=== PATIENT | male | born 1950 | race Caucasian/White ===

== ENCOUNTER 2020-04-11 13:09 | Outpatient (REF) | payer MEDICARE, SELFPAY ==
[2020-04-11 14:38] LABS: Cholesterol 155 mg/dL; HDL Cholesterol 62 mg/dL; LDL Cholesterol Calculated 79 mg/dl; Triglycerides 70 mg/dL
== END 2020-04-11 13:10 | disposition home or self-care (01) ==
LOC: HO.LAB 13:09
PROVIDERS: PCP Internal Medicine; Visit Provider Internal Medicine
DX: Z00.00 Encounter for general adult medical examination without abnormal findings (principal); E78.5 Hyperlipidemia, unspecified
CPT/HCPCS: 36415; 80061

== ENCOUNTER 2020-10-05 11:26 | Outpatient (REF) | payer MEDICARE, SELFPAY ==
[2020-10-05 12:43] LABS: Cholesterol 156 mg/dL; HDL Cholesterol 58 mg/dL; LDL Cholesterol Calculated 82 mg/dl; Triglycerides 83 mg/dL
== END 2020-10-05 11:27 | disposition home or self-care (01) ==
LOC: HO.LAB 11:26
PROVIDERS: PCP Internal Medicine; Visit Provider Internal Medicine
DX: E11.9 Type 2 diabetes mellitus without complications (principal)
CPT/HCPCS: 36415; 80061

== ENCOUNTER 2021-02-07 13:36 | Outpatient (REF) | payer MEDICARE, SELFPAY | END 2021-02-07 13:37 | disposition home or self-care (01) | LOC: HO.LAB 13:36 | PROVIDERS: PCP Internal Medicine; Visit Provider Internal Medicine | DX: Z20.822 Contact with and (suspected) exposure to COVID-19 (principal) | CPT/HCPCS: C9803; U0003; U0005 ==

== ENCOUNTER 2021-03-20 12:54 | Outpatient (REF) | payer MEDICARE, SELFPAY | END 2021-03-20 12:55 | disposition home or self-care (01) | LOC: HO.LAB 12:54 | PROVIDERS: Visit Provider Internal Medicine | DX: Z20.822 Contact with and (suspected) exposure to COVID-19 (principal) | CPT/HCPCS: C9803; U0003; U0005 ==

== ENCOUNTER 2021-04-08 11:39 | Outpatient (REF) | payer OTHER, SELFPAY ==
[2021-04-08 11:50] LABS: MANUAL DIFF FLAG NO
[2021-04-08 12:40] LABS: Basophils Percent Auto 0.8 % (0-2); Eosinophils Absolute Auto 0.1 X10*3/uL (0.0-0.4); Eosinophils Percent Auto 1.9 % (0-4); Hematocrit 45.3 % (42.0-52.0); Hemoglobin 15.7 g/dl (14.0-18.0); Imm Gran Abs Auto 0.02 X10*3/uL (0.00-0.03); Imm Gran Pct Auto 0.4 % (0.0-0.4); Lymphocytes Absolute Auto 1.4 X10*3/uL (1.2-4.9); Lymphocytes Percent Auto 30.1 % (20-40); Mean Corpuscular HGB Conc 34.7 g/dl (31.0-36.0); Mean Corpuscular Hemoglobin 34.1 pg (27.0-33.0); Mean Corpuscular Volume 98.5 fL (80.0-98.0); Mean Platelet Volume 9.2 fL (9.4-12.4); Monocytes Absolute Auto 0.5 X10*3/uL (0.1-1.2); Monocytes Percent Auto 10.7 % (2-11); Neutrophils Absolute Auto 2.7 x10*3/uL (2.0-8.3); Neutrophils Percent Auto 56.1 % (45-73); Platelet Count 234 X10*3/uL (160-400); Red Cell Distribution Width 12.8 % (11.0-16.0); White Blood Count 4.8 X10*3/uL (4.8-10.8)
[2021-04-08 12:57] LABS: Anion Gap 15 (12-20); Blood Urea Nitrogen 13 mg/dL (9-16); Calcium 9.4 mg/dL (8.4-10.2); Carbon Dioxide 26 mmol/L (22-29); Chloride 102 mmol/L (96-108); Estimated Glomerular Filt Rate 54; Glucose Random 93 mg/dL (60-115); Potassium 4.5 mmol/L (3.3-5.1); Sodium 138 mmol/L (135-145)
[2021-04-08 13:18] LABS: Prostate Specific Antigen Scr 3.07 ng/mL (<0.05-4.0)
== END 2021-04-08 11:40 | disposition home or self-care (01) ==
LOC: HO.LAB 11:39
PROVIDERS: PCP Internal Medicine; Visit Provider Internal Medicine
DX: Z00.00 Encounter for general adult medical examination without abnormal findings (principal); R35.1 Nocturia; R51.9 Headache, unspecified; Z12.5 Encounter for screening for malignant neoplasm of prostate
CPT/HCPCS: 36415; 80048; 84153; 85025

== ENCOUNTER 2021-10-04 11:47 | Outpatient (REF) | payer OTHER, SELFPAY ==
[2021-10-04 14:00] LABS: Cholesterol 147 mg/dL; HDL Cholesterol 56 mg/dL; LDL Cholesterol Calculated 79 mg/dl; Triglycerides 60 mg/dL
== END 2021-10-04 11:48 | disposition home or self-care (01) ==
LOC: HO.LAB 11:47
PROVIDERS: PCP Internal Medicine; Visit Provider Internal Medicine
DX: Z00.00 Encounter for general adult medical examination without abnormal findings (principal)
CPT/HCPCS: 36415; 80061

== ENCOUNTER 2022-04-15 11:36 | Outpatient (REF) | payer OTHER, SELFPAY ==
[2022-04-15 11:47] LABS: MANUAL DIFF FLAG NO
[2022-04-15 12:27] LABS: Basophils Percent Auto 0.7 % (0-2); Eosinophils Absolute Auto 0.1 X10*3/uL (0.0-0.4); Eosinophils Percent Auto 1.3 % (0-4); Hematocrit 44.4 % (42.0-52.0); Hemoglobin 15.5 g/dl (14.0-18.0); Imm Gran Abs Auto 0.01 X10*3/uL (0.00-0.03); Imm Gran Pct Auto 0.2 % (0.0-0.4); Lymphocytes Absolute Auto 1.5 X10*3/uL (1.2-4.9); Lymphocytes Percent Auto 25.5 % (20-40); Mean Corpuscular HGB Conc 34.9 g/dl (31.0-36.0); Mean Corpuscular Hemoglobin 34.6 pg (27.0-33.0); Mean Corpuscular Volume 99.1 fL (80.0-98.0); Mean Platelet Volume 9.4 fL (9.4-12.4); Monocytes Absolute Auto 0.6 X10*3/uL (0.1-1.2); Monocytes Percent Auto 10.7 % (2-11); Neutrophils Absolute Auto 3.7 x10*3/uL (2.0-8.3); Neutrophils Percent Auto 61.6 % (45-73); Platelet Count 225 X10*3/uL (160-400); Red Blood Count 4.48 X10*6/uL (4.60-5.80); Red Cell Distribution Width 12.6 % (11.0-16.0)
[2022-04-15 14:27] LABS: Alanine Aminotransferase 15 U/L (0-40); Albumin Level 4.5 g/dL (3.5-5.0); Anion Gap 12 (12-20); Aspartate Amino Transferase 20 U/L (5-37); Blood Urea Nitrogen 15 mg/dL (9-16); Calcium 9.2 mg/dL (8.4-10.2); Carbon Dioxide 25 mmol/L (22-29); Chloride 105 mmol/L (96-108); Cholesterol 159 mg/dL; Estimated Glomerular Filt Rate > 60; Glucose Fasting 100 mg/dL (60-99); HDL Cholesterol 56 mg/dL; LDL Cholesterol Calculated 85 mg/dl; Sodium 138 mmol/L (135-145); Total Protein 6.8 g/dL (6.5-8.0); Triglycerides 93 mg/dL
[2022-04-15 14:28] LABS: Alkaline Phosphatase 67 U/L (39-117)
[2022-04-15 14:29] LABS: Prostate Specific Antigen Scr 4.36 ng/mL (<0.05-4.0)
== END 2022-04-15 11:37 | disposition home or self-care (01) ==
LOC: HO.LAB 11:36
PROVIDERS: PCP Internal Medicine; Visit Provider Internal Medicine
DX: Z00.00 Encounter for general adult medical examination without abnormal findings (principal); Z12.5 Encounter for screening for malignant neoplasm of prostate; Z13.0 Encounter for screening for diseases of the blood and blood-forming organs and certain disorders involving the immune mechanism; I10 Essential (primary) hypertension; E78.5 Hyperlipidemia, unspecified
CPT/HCPCS: 36415; 80053; 80061; 84153; 85025

== ENCOUNTER 2022-10-13 12:42 | Outpatient (REF) | payer OTHER, SELFPAY ==
[2022-10-13 14:35] LABS: Cholesterol 131 mg/dL; HDL Cholesterol 56 mg/dL; LDL Cholesterol Calculated 65 mg/dl; Triglycerides 54 mg/dL
[2022-10-13 15:07] LABS: Prostate Specific Antigen Scr 3.93 ng/mL (<0.05-4.0)
== END 2022-10-13 12:43 | disposition home or self-care (01) ==
LOC: HO.LAB 12:42
PROVIDERS: PCP Internal Medicine; Visit Provider Internal Medicine
DX: Z00.00 Encounter for general adult medical examination without abnormal findings (principal); Z12.5 Encounter for screening for malignant neoplasm of prostate; E78.5 Hyperlipidemia, unspecified
CPT/HCPCS: 36415; 80061; 84153

== ENCOUNTER 2022-10-15 11:30 | Outpatient (AMB) | payer OTHER, SELFPAY ==
--- NOTE | 2022-10-15 11:32 | A.OFFPC_ITS ---
Vital Signs 10/15/22 11:33 Height 5 ft 6.5 in Weight 180 lb 2 oz BMI 28.6 BP 120/60 Blood Pressure Location Lt brachial Position Sitting Pulse 69 Pulse Source Pulse Oximeter Pulse Oximetry (%) 95 Oxygen Delivery Method Room Air Intake Visit Reasons: 6mth f/u Intake Note: Patient is here to follow up on Hyperlipidemia. 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 Residential Sales Associate: Not Required per policy Accompanied by: Self / Same As Patient Allergies penicillin V Allergy (Unknown, Verified 10/15/22 11:32) Rash Medication List - Last Reconciled 10/15/22 by Kyree Johnson MD epinephrine (EpiPen 2-Nate) 0.3 mg (0.3 mL) IM Q10M PRN simvastatin 20 mg PO DAILY Tobacco use date assessed: 10/15/22 Fall risk assessment: No Falls in past year Last assessed Fall Risk: 10/15/22 Dental Screening Dental Screen Date: 10/15/22 Did you have a dental visit in the last 12 months?: Yes Did you have a dental problem in the last 6 months where you did not have access to dental care?: No Was dental information given to patient?: Patient has dentist HPI 6mth f/u HPI Details hyperlipidemia on rx; doing well PFSH Medical History (Updated 04/10/21 @ 12:07 by Kyree Johnson MD) Hyperlipidemia Surgical History H/O thyroglossal duct cyst History of foot surgery Family History Father No problems noted. Mother Esophageal cancer Brother Past heart attack Social History Housing: House Alcohol intake: current Alcohol intake frequency: a few times a week Patient Tobacco Use Status: Never used Tobacco e-Cigarette/Vaping Use: Never Used Second Hand Smoke Exposure: No service: No Current occupational status: retired Cognitive needs: No Hearing needs: Yes (hearing aide) Vision needs: Yes (glasses) Questionnaire PHQ-9 Over the last 2 weeks, how often have you been bothered by any of the following problems? Depression Screening Interpretation: Negative Source: Developed by Drs. Rj Blair, Lavon Arguelles and colleagues, with an educational joey from [employer]. Thrive Questionnaire Date Thrive assessed: 04/16/22 Currently or been in a relationship where the following occur: no concerns reported SALIMA-7 AMB Questionnaire SALIMA-7 Date SALIMA - 7 assessed: 04/16/22 Source: Developed by Drs. Rj Blair, Lavon Arguelles and colleagues, with an educational joey from [employer]. Review of Systems Const Denies chills, Denies headache(s) and Denies weight loss ENT Denies headache(s) Card Denies chest pain, Denies syncope, Denies irregular heart rhythm and Denies dyspnea Resp Denies chest congestion, Denies cough and Denies dyspnea GI Denies abdominal pain, Denies change in stool character, Denies nausea and Denies vomiting Musc Denies deformity and Denies joint swelling Neuro Denies syncope and Denies headache(s) Physical exam (Primary Care) Vital Signs: Last Vital Signs Pulse 69 10/15/22 11:33 BP 120/60 10/15/22 11:33 Pulse Ox 95 10/15/22 11:33 Oxygen Delivery Method Room Air 10/15/22 11:33 BMI result Body Mass Index 28.6 Tobacco/Smoking Status: Tobacco use Status Tobacco use date assessed 10/15/22 10/15/22 11:37 Patient Tobacco Use Status Never used Tobacco 10/15/22 11:37 e-Cigarette/Vaping Use Never Used 10/15/22 11:37 Depression Screening Interpretation: Negative Thrive Assessment: Date of Thrive Assessment Date Thrive assessed 04/16/22 10/15/22 11:37 Currently or been in a relationship where the following occur: no concerns reported Const General: comfortable, no acute distress and alert Neck Neck: Yes no lymphadenopathy Thyroid: Thyroid normal Resp Effort & Inspection: normal respiratory effort Auscultation: clear to auscultation bilaterally Percussion: percussion normal Cardio Jugular venous distension: no JVD Palpation: normal PMI Rate: regular rate Rhythm: regular rhythm Heart sounds: S1 normal heart sound present and S2 normal heart sound present GI Inspection: Yes normal to inspection Palpation (GI): No hepatosplenomegaly present Skin General skin exam: no rashes or lesions noted Extrem General: Yes no clubbing, cyanosis or edema Assessment and Plan Assessment & Plan (1) Hyperlipidemia: Code(s): E78.5 - Hyperlipidemia, unspecified Plan: stable; same rx Orders: Orders Comprehensive [place]. Panel Fast Today N28.9 - Disorder of kidney and ureter, unspecified Lipid Panel Today E78.5 - Hyperlipidemia, unspecified Complete Blood Count Auto Diff Today D64.9 - Anemia, unspecified Prostate Specific Antigen Scr Today Z00.00 - Encounter for general adult medical examination without abnormal findings Referrals Podiatry Referral L60.9 - Nail disorder, unspecified Coding Level of Care Code Est Pt Level 3 (58703) Diagnoses Hyperlipidemia E78.5
[2022-10-15 11:33] VITALS: BP 120/60; PULSE 69; O2SAT 95; BMI 28.6
== END 2022-10-15 11:44 | disposition home or self-care (01) ==
PROVIDERS: PCP Internal Medicine; Visit Provider Internal Medicine
DX: E78.5 Hyperlipidemia, unspecified (principal)
CPT/HCPCS: 99213

== ENCOUNTER 2022-11-20 13:48 | Outpatient (AMB) | payer OTHER, SELFPAY ==
--- NOTE | 2022-11-20 13:49 | MHC.PC.OV ---
Intake Visit Reasons: Sneezing, coughing/sore throat/troubled breathing Allergies penicillin V Allergy (Unknown, Verified 11/20/22 13:49) Rash Medication List - Last Reconciled 11/20/22 by Kyree Johnson MD epinephrine (EpiPen 2-Nate) 0.3 mg (0.3 mL) IM Q10M PRN simvastatin 20 mg PO DAILY Tobacco use date assessed: 10/15/22 Fall risk assessment: No Falls in past year Last assessed Fall Risk: 11/20/22 Dental Screening Dental Screen Date: 11/20/22 Did you have a dental visit in the last 12 months?: No Did you have a dental problem in the last 6 months where you did not have access to dental care?: No Was dental information given to patient?: Patient has dentist HPI Sneezing, coughing/sore throat/troubled breathing HPI Details cough chills dyspnea for 2 days PFSH Medical History (Updated 11/20/22 @ 14:07 by Kyree Johnson MD) Hyperlipidemia Surgical History H/O thyroglossal duct cyst History of foot surgery Family History Father No problems noted. Mother Esophageal cancer Brother Past heart attack Social History Housing: House Alcohol intake: current Alcohol intake frequency: a few times a week Patient Tobacco Use Status: Never used Tobacco e-Cigarette/Vaping Use: Never Used Second Hand Smoke Exposure: No service: No Current occupational status: retired Cognitive needs: No Hearing needs: Yes (hearing aide) Vision needs: Yes (glasses) Questionnaire PHQ-9 Over the last 2 weeks, how often have you been bothered by any of the following problems? 1. Little interest or pleasure in doing things: not at all 2. Feeling down, depressed, or hopeless: not at all 3. Trouble falling or staying asleep, or sleeping too much: not at all 4. Feeling tired or having little energy: not at all 5. Poor appetite or overeating: not at all 6. Feeling bad about yourself - or that you are a failure or have let yourself or your family down: not at all 7. Trouble concentrating on things, such as reading the newspaper or watching television: not at all 8. Moving or speaking so slowly that other people could have noticed. Or the opposite - being so fidgety or restless that you have been moving around a lot more than usual: not at all 9. Thoughts that you would be better off or of hurting yourself in some way: not at all Total score: 0 Depression Screening Interpretation: Negative Source: Developed by Drs. Rj Blair, Lavon Arguelles and colleagues, with an educational joey from [employer]. Thrive Questionnaire Date Thrive assessed: 04/16/22 AUDIT C Alcohol Use Questionnaire (AUDIT-C) 1. How often do you have a drink containing alcohol?: 4 or more times a week 2. How many drinks containing alcohol do you have on a typical day when you are drinking?: 3 or 4 3. How often do you have six or more drinks on one occasion?: Never Total Score: 5 Score Reviewed/Action Taken: Yes SALIMA-7 AMB Questionnaire SALIMA-7 Date SALIMA - 7 assessed: 04/16/22 Source: Developed by Drs. Rj Blair, Monica Nicolas, Lavon Contreras and colleagues, with an educational joey from [employer]. Review of Systems Const Denies headache(s) and Denies weight loss ENT Denies headache(s) Card Denies chest pain, Denies syncope and Denies irregular heart rhythm Resp Denies chest congestion GI Denies abdominal pain, Denies change in stool character, Denies nausea and Denies vomiting Musc Denies deformity and Denies joint swelling Neuro Denies syncope and Denies headache(s) Physical exam (Primary Care) Tobacco/Smoking Status: Tobacco use Status Tobacco use date assessed 10/15/22 11/20/22 13:50 Patient Tobacco Use Status Never used Tobacco 11/20/22 13:50 e-Cigarette/Vaping Use Never Used 11/20/22 13:50 PHQ-9: PHQ-9 Score PHQ-9: Total score 0 11/20/22 13:50 Depression Screening Interpretation: Negative Thrive Assessment: Date of Thrive Assessment Date Thrive assessed 04/16/22 11/20/22 13:50 Telehealth Telehealth Location of provider rendering services: practice address Location of patient: address on file Patient Identification confirmed using: Name, : Yes Telehealth method: voice only Patient verbally consented to treatment: Yes Patient verbally consented to billing insurance company: Yes Patient informed of any privacy concerns related to visit: Yes Minutes spent on Phone/Video with Pt.: 15 (telephone) Assessment and Plan Assessment & Plan (1) Cough: Code(s): R05.9 - Cough, unspecified Plan: covid test Orders: Orders BinaxNOW Covid-19 Ag Today R68.83 - Chills (without fever) Medications: New azithromycin take 500 mg today (day 1), then 250 mg for 4 days (days 2-5) PO 6 tabs 0RF Coding Level of Care Code Est Pt Level 3 (69526) Diagnoses Cough R05.9
== END 2022-11-20 15:51 | disposition home or self-care (01) ==
LOC: HO.HMGH 13:48
PROVIDERS: PCP Internal Medicine; Visit Provider Internal Medicine
DX: R05.9 Cough, unspecified (principal)
CPT/HCPCS: 99213

== ENCOUNTER 2022-11-20 14:29 | Outpatient (REF) | payer OTHER, SELFPAY ==
[2022-11-20 15:09] LABS: COVID-19 Test Positive (Negative); IDNOW Serial# BCCEAD1C
== END 2022-11-20 14:30 | disposition home or self-care (01) ==
LOC: HO.LAB 14:29
PROVIDERS: PCP Internal Medicine; Visit Provider Internal Medicine
DX: R05.9 Cough, unspecified (principal); R06.7 Sneezing; J02.9 Acute pharyngitis, unspecified; Z20.822 Contact with and (suspected) exposure to COVID-19
CPT/HCPCS: 87635

== ENCOUNTER 2022-11-27 14:08 | Outpatient (REF) | payer OTHER, SELFPAY ==
[2022-11-27 15:30] LABS: COVID-19 Test Negative (Negative); IDNOW Serial# 08D9AD1C
== END 2022-11-27 14:09 | disposition home or self-care (01) ==
LOC: HO.LAB 14:08
PROVIDERS: PCP Internal Medicine; Visit Provider Internal Medicine
DX: Z20.822 Contact with and (suspected) exposure to COVID-19 (principal); R05.9 Cough, unspecified
CPT/HCPCS: 87635; C9803

== ENCOUNTER 2023-04-08 11:21 | Outpatient (AMB) | payer OTHER, SELFPAY ==
[2023-04-08 11:23] VITALS: BP 164/98; PULSE 70; O2SAT 99; BMI 28.6
--- NOTE | 2023-04-08 11:23 | A.OFFPC_ITS ---
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 Metal Molder: Not Required per policy Accompanied by: Self / Same As Patient Allergies penicillin V Allergy (Unknown, Verified 04/08/23 11:23) Rash Medication List - Last Reconciled 04/08/23 by Kyree Johnson MD epinephrine (EpiPen 2-Nate) 0.3 mg (0.3 mL) IM Q10M PRN simvastatin 20 mg PO DAILY Tobacco use date assessed: 04/08/23 Fall risk assessment: No Falls in past year Last assessed Fall Risk: 04/08/23 Dental Screening Dental Screen Date: 04/08/23 Did you have a dental visit in the last 12 months?: No Did you have a dental problem in the last 6 months where you did not have access to dental care?: No Was dental information given to patient?: Patient has dentist HPI Cataract surgery on both eyes, 04/14, 04/29 HPI Details Having bilat cataract repairs; controlled hyperlipidemia; no history of CAD [facility] Medical History (Updated 04/08/23 @ 13:16 by Kyree Johnson MD) Hyperlipidemia Surgical History H/O thyroglossal duct cyst History of foot surgery Family History Father No problems noted. Mother Esophageal cancer Brother Past heart attack Social History Housing: House Alcohol intake: current Alcohol intake frequency: a few times a week Patient Tobacco Use Status: Never used Tobacco e-Cigarette/Vaping Use: Never Used Second Hand Smoke Exposure: No service: No Current occupational status: retired Cognitive needs: No Hearing needs: Yes (hearing aide) Vision needs: Yes (glasses) Questionnaire PHQ-9 Over the last 2 weeks, how often have you been bothered by any of the following problems? 1. Little interest or pleasure in doing things: not at all 2. Feeling down, depressed, or hopeless: not at all 3. Trouble falling or staying asleep, or sleeping too much: not at all 4. Feeling tired or having little energy: not at all 5. Poor appetite or overeating: not at all 6. Feeling bad about yourself - or that you are a failure or have let yourself or your family down: not at all 7. Trouble concentrating on things, such as reading the newspaper or watching television: not at all 8. Moving or speaking so slowly that other people could have noticed. Or the opposite - being so fidgety or restless that you have been moving around a lot more than usual: not at all 9. Thoughts that you would be better off or of hurting yourself in some way: not at all Total score: 0 Depression Screening Interpretation: Negative Depression Screening Done: Yes Source: Developed by Drs. Rj Blair, Monica Nicolas, Lavon Contreras and colleagues, with an educational joey from [employer]. Thrive Questionnaire Date Thrive assessed: 04/08/23 I am a: Patient What is your living situation today?: I have a steady place to live Within the past 12 months, did the food you bought not last and you didn't have the money to get more?: Never true Within the past 12 months, did you worry whether your food would run out before you got money to buy more?: Never true Do you have trouble paying for medicines?: No Do you have trouble getting transportation to medical appointments?: No Do you have trouble paying your heating and electricity bill?: No Do you have trouble taking care of your child, family member or friend?: No Do you have trouble with day-to-day activities such as bathing, preparing meals, shopping, managing finances, etc.?: No Are you currently unemployed and looking for a job?: No Are you interested in more education?: No Please select the resources that you would like help with: None AUDIT C Alcohol Use Questionnaire (AUDIT-C) 1. How often do you have a drink containing alcohol?: 4 or more times a week 2. How many drinks containing alcohol do you have on a typical day when you are drinking?: 3 or 4 3. How often do you have six or more drinks on one occasion?: Never Total Score: 5 Score Reviewed/Action Taken: Yes SALIMA-7 AMB Questionnaire SALIMA-7 Date SALIMA - 7 assessed: 04/08/23 Feeling nervous, anxious, or on edge: 0 = Not at all Not being able to stop or control worryin = Not at all Worrying too much about different things: 0 = Not at all Trouble relaxin = Not at all Being so restless that it is hard to sit still: 0 = Not at all Becoming easily annoyed or irritable: 0 = Not at all Feeling afraid as if something awful might happen: 0 = Not at all Total SALIMA-7 score (0-4 normal; 5-9 mild; 10-14 moderate; 15-21 severe): 0 Source: Developed by Drs. Rj Blair, Monica Nicolas, Lavon Contreras and colleagues, with an educational joey from [employer]. Review of Systems Const Denies chills, Denies fatigue, Denies headache(s) and Denies weight loss Eyes Denies change in vision, Denies diplopia and Denies eye pain ENT Denies vertigo, Denies dizziness, Denies headache(s) and Denies nasal discharge Card Denies chest pain, Denies rapid heart rate and Denies dyspnea on exertion Resp Denies chest congestion, Denies cough, Denies pain with cough and Denies dyspnea on exertion GI Denies abdominal pain, Denies hematochezia and Denies change in bowel habits Musc Denies myalgias, Denies arthralgias and Denies joint swelling Skin/Breast Denies lesions and Denies unusual bruising Neuro Denies vertigo, Denies dizziness, Denies headache(s) and Denies focal weakness Endo Denies fatigue Physical exam (Primary Care) Vital Signs: Last Vital Signs Pulse 70 04/08/23 11:23 BP 164/98 H 04/08/23 11:23 Pulse Ox 99 04/08/23 11:23 Oxygen Delivery Method Room Air 04/08/23 11:23 BMI result Body Mass Index 28.6 Tobacco/Smoking Status: Tobacco use Status Tobacco use date assessed 04/08/23 04/08/23 11:25 Patient Tobacco Use Status Never used Tobacco 04/08/23 11:25 e-Cigarette/Vaping Use Never Used 01/10/24 11:25 PHQ-9: PHQ-9 Score PHQ-9: Total score 0 04/08/23 11:25 Depression Screening Interpretation: Negative Thrive Assessment: Date of Thrive Assessment Date Thrive assessed 04/08/23 04/08/23 11:25 Const General: cooperative, healthy appearing and no acute distress Orientation/consciousness: oriented to person, oriented to place and oriented to time HENMT Head: Yes normal to inspection, Yes normocephalic and Yes atraumatic Mouth: Normal oral and palatal mucosa present and tongue normal Throat: Yes posterior oropharynx normal and Yes uvula midline Eyes General: appearance normal, both eyes and all related structures Neck Neck: Yes normal visual inspection, Yes full ROM and Yes no lymphadenopathy Thyroid: Thyroid normal Carotids: normal carotid upstroke Chest Chest palpation & inspection: normal inspection of the chest Resp Effort & Inspection: normal respiratory effort and able to speak in complete sentences Auscultation: clear to auscultation bilaterally Cardio Jugular venous distension: no JVD Palpation: normal PMI Rate: regular rate Rhythm: regular rhythm Heart sounds: S1 normal heart sound present and S2 normal heart sound present GI Inspection: Yes normal to inspection Palpation (GI): Soft to palpation and No hepatosplenomegaly present Auscultation: normal bowel sounds General: Yes no CVA tenderness Back/Spine/Pelvis Back: no CVA tenderness Skin General skin exam: no rashes or lesions noted Neuro General: oriented to person, oriented to place and oriented to time Extrem General: Yes normal to inspection and Yes full ROM Assessment and Plan Assessment & Plan (1) Preop exam for internal medicine: Code(s): Z01.818 - Encounter for other preprocedural examination Plan: low risk for cardiovascular complications; cleared for surgery (2) Hyperlipidemia: Code(s): E78.5 - Hyperlipidemia, unspecified Plan: stable; same rx Coding Level of Care Code Est Pt Level 4 (26620) Diagnoses Preop exam for internal medicine Z01.818 Hyperlipidemia E78.5
== END 2023-04-08 11:37 | disposition home or self-care (01) ==
PROVIDERS: PCP Internal Medicine; Visit Provider Internal Medicine
DX: Z01.818 Encounter for other preprocedural examination (principal); E78.5 Hyperlipidemia, unspecified
CPT/HCPCS: 99214

== ENCOUNTER 2023-05-27 11:19 | Outpatient (AMB) | payer OTHER, SELFPAY ==
[2023-05-27 11:21] VITALS: BP 146/86; PULSE 65; O2SAT 98; BMI 28.5
--- NOTE | 2023-05-27 11:21 | A.OFFPC_ITS ---
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 Sales Enablement Analyst: Not Required per policy Accompanied by: Self / Same As Patient Allergies penicillin V Allergy (Unknown, Verified 05/27/23 11:22) Rash Medication List - Last Reconciled 05/27/23 by Kyree Johnson MD epinephrine (EpiPen 2-Nate) 0.3 mg (0.3 mL) IM Q10M PRN simvastatin 20 mg PO DAILY Tobacco use date assessed: 04/08/23 Fall risk assessment: No Falls in past year Last assessed Fall Risk: 05/27/23 HPI 3mth f/u HPI Details pruritic rash on chest for 7 months; possible drug [facility] Medical History (Updated 04/08/23 @ 13:16 by Kyree Johnson MD) Hyperlipidemia Surgical History H/O thyroglossal duct cyst History of foot surgery Family History Father No problems noted. Mother Esophageal cancer Brother Past heart attack Social History Housing: House Alcohol intake: current Alcohol intake frequency: a few times a week Patient Tobacco Use Status: Never used Tobacco e-Cigarette/Vaping Use: Never Used Second Hand Smoke Exposure: No service: No Current occupational status: retired Cognitive needs: No Hearing needs: Yes (hearing aide) Vision needs: Yes (glasses) Questionnaire Thrive Questionnaire Date Thrive assessed: 04/08/23 SALIMA-7 AMB Questionnaire SALIMA-7 Date SALIMA - 7 assessed: 04/08/23 Source: Developed by Drs. Rj Blair, Monica Nicolas, Lavon Contreras and colleagues, with an educational joey from [employer]. Review of Systems Const Denies chills, Denies headache(s) and Denies weight loss ENT Denies headache(s) Card Denies chest pain, Denies syncope, Denies irregular heart rhythm and Denies dyspnea Resp Denies chest congestion, Denies cough and Denies dyspnea GI Denies abdominal pain, Denies change in stool character, Denies nausea and Denies vomiting Musc Denies deformity and Denies joint swelling Neuro Denies syncope and Denies headache(s) Physical exam (Primary Care) Vital Signs: Last Vital Signs Pulse 65 05/27/23 11:21 BP 146/86 H 05/27/23 11:21 Pulse Ox 98 05/27/23 11:21 Oxygen Delivery Method Room Air 05/27/23 11:21 BMI result Body Mass Index 28.5 Tobacco/Smoking Status: Tobacco use Status Tobacco use date assessed 04/08/23 05/27/23 11:22 Patient Tobacco Use Status Never used Tobacco 05/27/23 11:22 e-Cigarette/Vaping Use Never Used 05/27/23 11:22 Thrive Assessment: Date of Thrive Assessment Date Thrive assessed 04/08/23 05/27/23 11:22 Const General: cooperative, comfortable, no acute distress and alert Neck Neck: Yes no lymphadenopathy Thyroid: Thyroid normal Resp Effort & Inspection: normal respiratory effort Auscultation: clear to auscultation bilaterally Percussion: percussion normal Cardio Jugular venous distension: no JVD Palpation: normal PMI Rate: regular rate Rhythm: regular rhythm Heart sounds: S1 normal heart sound present and S2 normal heart sound present GI Inspection: Yes normal to inspection Palpation (GI): No hepatosplenomegaly present Skin Other: generalized red nodular rash; pruritic Extrem General: Yes no clubbing, cyanosis or edema Assessment and Plan Assessment & Plan (1) Rash: Code(s): R21 - Rash and other nonspecific skin eruption Plan: stop simvaststin Orders: Orders Thyroid Stimulating Hormone Today E03.9 - Hypothyroidism, unspecified Lipid Panel Today E78.5 - Hyperlipidemia, unspecified Comprehensive [place]. Panel Fast Today N28.9 - Disorder of kidney and ureter, unspecified Complete Blood Count Auto Diff Today D64.9 - Anemia, unspecified Medications: New hydroxyzine pamoate 25 mg PO QID PRN 60 caps 3RF itching Coding Level of Care Code Est Pt Level 3 (53465) Diagnoses Rash R21
== END 2023-05-27 11:40 | disposition home or self-care (01) ==
PROVIDERS: PCP Internal Medicine; Visit Provider Internal Medicine
DX: R21 Rash and other nonspecific skin eruption (principal)
CPT/HCPCS: 99213

== ENCOUNTER 2023-10-14 10:57 | Outpatient (REF) | payer OTHER, SELFPAY ==
[2023-10-14 11:16] LABS: MANUAL DIFF FLAG NO
[2023-10-14 12:19] LABS: Basophils Absolute Auto 0.1 X10*3/uL (0.0-0.2); Basophils Percent Auto 1.2 % (0-2); Eosinophils Absolute Auto 0.4 X10*3/uL (0.0-0.4); Eosinophils Percent Auto 8.6 % (0-4); Hematocrit 43.6 % (42.0-52.0); Imm Gran Abs Auto 0.01 X10*3/uL (0.00-0.03); Imm Gran Pct Auto 0.2 % (0.0-0.4); Lymphocytes Absolute Auto 1.4 X10*3/uL (1.2-4.9); Lymphocytes Percent Auto 34.2 % (20-40); Mean Corpuscular HGB Conc 34.4 g/dl (31.0-36.0); Mean Corpuscular Hemoglobin 34.1 pg (27.0-33.0); Mean Corpuscular Volume 99.1 fL (80.0-98.0); Mean Platelet Volume 9.6 fL (9.4-12.4); Monocytes Absolute Auto 0.4 X10*3/uL (0.1-1.2); Monocytes Percent Auto 9.3 % (2-11); Neutrophils Absolute Auto 1.9 x10*3/uL (2.0-8.3); Neutrophils Percent Auto 46.5 % (45-73); Platelet Count 197 X10*3/uL (160-400); Red Cell Distribution Width 13.8 % (11.0-16.0); White Blood Count 4.1 X10*3/uL (4.8-10.8)
[2023-10-14 13:06] LABS: Alanine Aminotransferase 18 U/L (0-40); Albumin Level 4.3 g/dL (3.5-5.0); Alkaline Phosphatase 66 U/L (39-117); Anion Gap 12 (12-20); Aspartate Amino Transferase 23 U/L (5-37); Bilirubin Total 0.8 mg/dL (0.0-1.0); Blood Urea Nitrogen 9 mg/dL (9-16); Carbon Dioxide 24 mmol/L (22-29); Chloride 107 mmol/L (96-108); Cholesterol 143 mg/dL (<200); Estimated Glomerular Filt Rate > 60; Glucose Fasting 93 mg/dL (60-99); HDL Cholesterol 64 mg/dL (>40); LDL Cholesterol Calculated 67 mg/dL (<100); Potassium 4.4 mmol/L (3.3-5.1); Sodium 139 mmol/L (135-145); Total Protein 6.5 g/dL (6.5-8.0); Triglycerides 63 mg/dL (<150)
[2023-10-14 13:49] LABS: Prostate Specific Antigen Scr 5.86 ng/mL (<0.05-4.0)
== END 2023-10-14 10:58 | disposition home or self-care (01) ==
LOC: HO.LAB 10:57
PROVIDERS: PCP Internal Medicine; Visit Provider Internal Medicine
DX: Z00.00 Encounter for general adult medical examination without abnormal findings (principal); E03.9 Hypothyroidism, unspecified; E78.5 Hyperlipidemia, unspecified; N28.9 Disorder of kidney and ureter, unspecified; D64.9 Anemia, unspecified; Z12.5 Encounter for screening for malignant neoplasm of prostate
CPT/HCPCS: 36415; 80053; 80061; 84153; 84443; 85025

== ENCOUNTER 2023-11-25 11:28 | Outpatient (AMB) | payer OTHER, SELFPAY ==
[2023-11-25 11:29] VITALS: BP 144/84; PULSE 80; O2SAT 97; BMI 28.3
--- NOTE | 2023-11-25 11:29 | MHC.PC.OV ---
Vital Signs 11/25/23 11:29 Height 5 ft 6.5 in Weight 178 lb BMI 28.3 BP 144/84 H Blood Pressure Location Lt brachial Position Sitting Pulse 80 Pulse Source Pulse Oximeter Pulse Oximetry (%) 97 Oxygen Delivery Method Room Air Intake Visit Reasons: 6mth f/u - due colonoscopy Childhood Development Teacher Required: No Accompanied by: Self / Same As Patient Allergies penicillin V Allergy (Unknown, Verified 11/25/23 11:33) Rash Medication List - Last Reconciled 11/25/23 by Kyree Johnson MD epinephrine (EpiPen 2-Nate) 0.3 mg (0.3 mL) IM Q10M PRN hydroxyzine pamoate 25 mg PO QID PRN simvastatin 20 mg PO DAILY Tobacco use date assessed: 04/08/23 Fall risk assessment: 2 + Falls in past year Last assessed Fall Risk: 11/25/23 Dental Screening Dental Screen Date: 11/25/23 Did you have a dental visit in the last 12 months?: No Did you have a dental problem in the last 6 months where you did not have access to dental care?: No Was dental information given to patient?: Patient has dentist HPI 6mth f/u - due colonoscopy HPI Details hyperlipidemia on rx; doing well and compliant [facility] Medical History (Updated 04/08/23 @ 13:16 by Kyree Johnson MD) Hyperlipidemia Surgical History H/O thyroglossal duct cyst History of foot surgery Family History Father No problems noted. Mother Esophageal cancer Brother Past heart attack Social History Housing: House Alcohol intake: current Alcohol intake frequency: a few times a week Patient Tobacco Use Status: Never used Tobacco Tobacco use type: Cigarette e-Cigarette/Vaping Use: Never Used Second Hand Smoke Exposure: No service: No Current occupational status: retired Cognitive needs: No Hearing needs: Yes (hearing aide) Vision needs: Yes (glasses) Questionnaire PHQ-9 Over the last 2 weeks, how often have you been bothered by any of the following problems? 1. Little interest or pleasure in doing things: not at all 2. Feeling down, depressed, or hopeless: not at all 3. Trouble falling or staying asleep, or sleeping too much: not at all 4. Feeling tired or having little energy: not at all 5. Poor appetite or overeating: not at all 6. Feeling bad about yourself - or that you are a failure or have let yourself or your family down: not at all 7. Trouble concentrating on things, such as reading the newspaper or watching television: not at all 8. Moving or speaking so slowly that other people could have noticed. Or the opposite - being so fidgety or restless that you have been moving around a lot more than usual: not at all 9. Thoughts that you would be better off or of hurting yourself in some way: not at all Total score: 0 Depression Screening Interpretation: Negative Depression Screening Done: Yes Source: Developed by Drs. Rj Blair, Monica Nicolas, Lavon Contreras and colleagues, with an educational joey from [employer]. Thrive Questionnaire Date Thrive assessed: 04/08/23 AUDIT C Alcohol Use Questionnaire (AUDIT-C) 1. How often do you have a drink containing alcohol?: 4 or more times a week 2. How many drinks containing alcohol do you have on a typical day when you are drinking?: 3 or 4 3. How often do you have six or more drinks on one occasion?: Never Total Score: 5 Score Reviewed/Action Taken: Yes SALIMA-7 AMB Questionnaire SALIMA-7 Date SALIMA - 7 assessed: 04/08/23 Source: Developed by Drs. Rj Blair, Monica Nicolas, Lavon Contreras and colleagues, with an educational joey from [employer]. Review of Systems Const Denies chills, Denies headache(s) and Denies weight loss ENT Denies headache(s) Card Denies chest pain, Denies syncope, Denies irregular heart rhythm and Denies dyspnea Resp Denies chest congestion, Denies cough and Denies dyspnea GI Denies abdominal pain, Denies change in stool character, Denies nausea and Denies vomiting Musc Denies deformity and Denies joint swelling Neuro Denies syncope and Denies headache(s) Physical exam (Primary Care) Vital Signs: Last Vital Signs Pulse 80 11/25/23 11:29 BP 144/84 H 11/25/23 11:29 Pulse Ox 97 11/25/23 11:29 Oxygen Delivery Method Room Air 11/25/23 11:29 BMI result Body Mass Index 28.3 Tobacco/Smoking Status: Tobacco use Status Tobacco use date assessed 04/08/23 11/25/23 11:35 Patient Tobacco Use Status Never used Tobacco 11/25/23 11:35 Tobacco use type Cigarette 11/25/23 11:35 e-Cigarette/Vaping Use Never Used 11/25/23 11:35 PHQ-9: PHQ-9 Score PHQ-9: Total score 0 11/25/23 11:35 Depression Screening Interpretation: Negative Thrive Assessment: Date of Thrive Assessment Date Thrive assessed 04/08/23 11/25/23 11:35 Const General: cooperative, comfortable, no acute distress and alert Neck Neck: Yes no lymphadenopathy Thyroid: Thyroid normal Resp Effort & Inspection: normal respiratory effort Auscultation: clear to auscultation bilaterally Percussion: percussion normal Cardio Jugular venous distension: no JVD Palpation: normal PMI Rate: regular rate Rhythm: regular rhythm Heart sounds: S1 normal heart sound present and S2 normal heart sound present GI Inspection: Yes normal to inspection Palpation (GI): No hepatosplenomegaly present Skin General skin exam: no rashes or lesions noted Extrem General: Yes no clubbing, cyanosis or edema Assessment and Plan Assessment & Plan (1) Hyperlipidemia: Code(s): E78.5 - Hyperlipidemia, unspecified Plan: stable; same rx Orders: Orders Prostate Specific Antigen Scr Today Z00.00 - Encounter for general adult medical examination without abnormal findings Referrals Dermatology Referral R21 - Rash and other nonspecific skin eruption Medications: New clotrimazole-betamethasone 1-0.05 % 1 appl topical BID 2 weeks 45 grams 2RF Coding Level of Care Code Est Pt Level 3 (65355) Diagnoses Hyperlipidemia E78.5
== END 2023-11-25 11:53 | disposition home or self-care (01) ==
PROVIDERS: PCP Internal Medicine; Visit Provider Internal Medicine
DX: E78.5 Hyperlipidemia, unspecified (principal)
CPT/HCPCS: 99213

== ENCOUNTER 2024-01-25 13:12 | Outpatient (REF) | payer OTHER, SELFPAY ==
[2024-01-25 14:46] LABS: Prostate Specific Antigen Scr 9.79 ng/mL (<0.05-4.0)
== END 2024-01-25 13:13 | disposition home or self-care (01) ==
LOC: HO.LAB 13:12
PROVIDERS: PCP Internal Medicine; Visit Provider Internal Medicine
DX: Z00.00 Encounter for general adult medical examination without abnormal findings (principal); Z12.5 Encounter for screening for malignant neoplasm of prostate
CPT/HCPCS: 36415; 84153

== ENCOUNTER 2024-02-04 14:17 | Outpatient (AMB) | payer OTHER, SELFPAY ==
[2024-02-04 14:20] VITALS: BP 166/92; PULSE 80; O2SAT 98; BMI 28.8
--- NOTE | 2024-02-04 14:20 | A.OFFPC_ITS ---
Vital Signs 02/04/24 14:20 Height 5 ft 6.5 in Weight 181 lb BMI 28.8 BP 166/92 H Blood Pressure Location Lt brachial Position Sitting Pulse 80 Pulse Source Pulse Oximeter Pulse Oximetry (%) 98 Oxygen Delivery Method Room Air Intake Visit Reasons: office follow up Hims Clerk Required: No Accompanied by: Self / Same As Patient Allergies penicillin V Allergy (Unknown, Verified 02/04/24 14:20) Rash Medication List - Last Reconciled 02/05/24 by Kyree Johnson MD clotrimazole-betamethasone 1-0.05 % 1 appl topical BID 2 weeks epinephrine (EpiPen 2-Nate) 0.3 mg (0.3 mL) IM Q10M PRN hydroxyzine pamoate 25 mg PO QID PRN simvastatin 20 mg PO DAILY Tobacco use date assessed: 04/08/23 Fall risk assessment: No Falls in past year Last assessed Fall Risk: 02/04/24 Dental Screening Dental Screen Date: 11/25/23 HPI office follow up HPI Details hyperlipidemia on rx; doing well; compliant [facility] Medical History (Updated 02/04/24 @ 14:30 by Kyree Johnson MD) Hyperlipidemia Surgical History H/O thyroglossal duct cyst History of foot surgery Family History Father No problems noted. Mother Esophageal cancer Brother Past heart attack Social History Housing: House Alcohol intake: current Alcohol intake frequency: a few times a week Patient Tobacco Use Status: Never used Tobacco Tobacco use type: Cigarette e-Cigarette/Vaping Use: Never Used Second Hand Smoke Exposure: No service: No Current occupational status: retired Cognitive needs: No Hearing needs: Yes (hearing aide) Vision needs: Yes (glasses) Questionnaire Thrive Questionnaire Date Thrive assessed: 04/08/23 SALIMA-7 AMB Questionnaire SALIMA-7 Date SALIMA - 7 assessed: 04/08/23 Source: Developed by Drs. Rj Blair, Monica Nicolas, Lavon Contreras and colleagues, with an educational joey from [employer]. Review of Systems Const Denies chills, Denies headache(s) and Denies weight loss ENT Denies headache(s) Card Denies chest pain, Denies syncope, Denies irregular heart rhythm and Denies dyspnea Resp Denies chest congestion, Denies cough and Denies dyspnea GI Denies abdominal pain, Denies change in stool character, Denies nausea and Denies vomiting Musc Denies deformity and Denies joint swelling Neuro Denies syncope and Denies headache(s) Physical exam (Primary Care) Vital Signs: Last Vital Signs Pulse 80 02/04/24 14:20 BP 166/92 H 02/04/24 14:20 Pulse Ox 98 02/04/24 14:20 Oxygen Delivery Method Room Air 02/04/24 14:20 BMI result Body Mass Index 28.8 Tobacco/Smoking Status: Tobacco use Status Tobacco use date assessed 04/08/23 02/04/24 14:25 Patient Tobacco Use Status Never used Tobacco 02/04/24 14:25 Tobacco use type Cigarette 02/04/24 14:25 e-Cigarette/Vaping Use Never Used 02/04/24 14:25 Thrive Assessment: Date of Thrive Assessment Date Thrive assessed 04/08/23 02/04/24 14:25 Const General: cooperative, comfortable, no acute distress and alert Neck Neck: Yes no lymphadenopathy Thyroid: Thyroid normal Resp Effort & Inspection: normal respiratory effort Auscultation: clear to auscultation bilaterally Percussion: percussion normal Cardio Jugular venous distension: no JVD Palpation: normal PMI Rate: regular rate Rhythm: regular rhythm Heart sounds: S1 normal heart sound present and S2 normal heart sound present GI Inspection: Yes normal to inspection Palpation (GI): No hepatosplenomegaly present Skin General skin exam: no rashes or lesions noted Extrem General: Yes no clubbing, cyanosis or edema Coding Level of Care Code Est Pt Level 3 (59173) Diagnoses Hyperlipidemia E78.5 Assessment & Plan Assessment & Plan (1) Hyperlipidemia: Code(s): E78.5 - Hyperlipidemia, unspecified Category: Medical Plan: stable; same rx Orders: Orders Lipid Panel Today Z13.220 - Encounter for screening for lipoid disorders Referrals Urology Referral R97.20 - Elevated prostate specific antigen [PSA]
== END 2024-02-04 14:35 | disposition home or self-care (01) ==
LOC: HO.HMCH 14:17
PROVIDERS: PCP Internal Medicine; Visit Provider Internal Medicine
DX: E78.5 Hyperlipidemia, unspecified (principal)

== ENCOUNTER → 2024-02-04 14:17 | Outpatient (BNVA) | payer OTHER, SELFPAY | PROVIDERS: PCP Internal Medicine; Visit Provider Internal Medicine | DX: E78.5 Hyperlipidemia, unspecified (principal) | CPT/HCPCS: 99212 ==

== ENCOUNTER 2024-03-03 14:33 | Outpatient (AMB) | payer OTHER, SELFPAY ==
--- NOTE | 2024-03-03 14:33 | A.OFFVIS_ITS ---
Intake Visit Reasons: elevated PSA Intake Note: New Patient presents for initial visit for elevated psa PSA: 10/14/23 (5.86); 01/25/24 (9.79) Urology Medications: none Blood Thinner: none Assistant Restaurant General Manager Required: No Manager Training And Development: Manager Training And Development offered & declined Accompanied by: Self / Same As Patient Allergies penicillin V Allergy (Unknown, Verified 03/03/24 15:14) Rash Medication List - Last Reconciled 03/03/24 by CADE Lawler- clotrimazole-betamethasone 1-0.05 % 1 appl topical BID 2 weeks epinephrine (EpiPen 2-Nate) 0.3 mg (0.3 mL) IM Q10M PRN hydroxyzine pamoate 25 mg PO QID PRN simvastatin 20 mg PO DAILY sulfamethoxazole-trimethoprim 800-160 mg (Bactrim DS) 1 tab PO BID 14 days HPI Comments Details: Jevon Calhoun is a very pleasant 73-year-old male patient of Dr. Johnson. He has a past medical history of hyperlipidemia. He presents to the office today as a new patient for an elevated PSA. In discussion with the patient today reports having followed up with his PCP at which time PSA has been noted to be elevated and recommendations were made for urology referral for further assessment evaluation. PSAs are as follows: 10/19 3.9, 10/20 5.8, 01/20 9.8 When asked he denies any known family history of prostate cancer. DARY performed left-side of the prostate was noted to be somewhat boggy otherwise no nodules palpated. We discussed potential causes of elevated PSA. He does report noting episodes of urinary frequency he otherwise denies incontinence, nocturia, hematuria, dysuria, foul smelling urine, changes to urinary stream, flank pain, fever, and or chills. We discussed obtaining retroperitoneal ultrasound as well as redraw of PSA status post completion of antibiotic therapy for presumed prostatitis given findings on DARY. All questions were answered. He otherwise offers no other issues or concerns at this time. [facility] Medical History Hyperlipidemia Surgical History H/O thyroglossal duct cyst History of foot surgery Family History Father No problems noted. Mother Esophageal cancer Brother Past heart attack Social History Housing: House Alcohol intake: current Alcohol intake frequency: a few times a week Patient Tobacco Use Status: Never used Tobacco Tobacco use type: Cigarette e-Cigarette/Vaping Use: Never Used Second Hand Smoke Exposure: No service: No Current occupational status: retired Cognitive needs: No Hearing needs: Yes (hearing aide) Vision needs: Yes (glasses) Review of Systems Const All systems reviewed & are unremarkable except as noted in HPI and below Physical Exam Const General: cooperative, healthy appearing, comfortable, no acute distress, well developed, alert and awake Orientation/consciousness: patient oriented x3 Limitations: no limitations HEENT Head: Yes normal to inspection, Yes normocephalic and Yes atraumatic Ears: hearing grossly normal bilaterally Eyes General: appearance normal, both eyes and all related structures Neck Neck: Yes normal visual inspection and Yes trachea midline Chest Chest palpation & inspection: normal inspection of the chest Resp Effort & Inspection: normal respiratory effort and able to speak in complete sentences Cardio Rate: regular rate GI Inspection: Yes normal to inspection General: Yes no CVA tenderness Back/Spine/Pelvis Back: no CVA tenderness Skin General skin exam: no rashes or lesions noted Neuro General: patient oriented x3 Extrem General: Yes normal to inspection Psych Appearance: grossly normal and well kempt Mental Status: mental status grossly normal Speech and movement: Normal speech and movement present and Clear speech present Affect: normal affect Attitude: cooperative Thought process: Normal thought process present Thought content: Normal thought content present Insight: Fair insight present (Psych) Judgement: Fair judgement present (Psych) Results AMB Urinalysis, Automated UA Leukoctes 0 Jeancarlos/uL Last Edit by Kathleen Bang on 03/03/24 14:51 UA Nitrite Last Edit by Kathleen Bang on 03/03/24 14:51 UA Urobilinogen 0.2 mg/dL Last Edit by Kathleen Bang on 03/03/24 14:51 UA Protein 30 mg/dL Last Edit by Kathleen Bang on 03/03/24 14:51 UA pH 6.0 Last Edit by Kathleen Bang on 03/03/24 14:51 UA Blood 0 Willie/uL Last Edit by Kathleen Bang on 03/03/24 14:51 UA Specific [place] 1.025 Last Edit by Kathleen Bang on 03/03/24 14:51 UA Ketone Negative Last Edit by Kathleen Bang on 03/03/24 14:51 UA Bilirubin 0 mg/dL Last Edit by Kathleen Bang on 03/03/24 14:51 UA Glucose 0 mg/dL Last Edit by Kathleen Bang on 03/03/24 14:51 Results Reviewed Results Reviewed: Laboratory Last Values Urine pH (Auto) 6.0 03/03/24 14:42 Specific [place] (Auto) 1.025 03/03/24 14:42 Urine Protein (Auto) 30 mg/dL 03/03/24 14:42 Glucose (UA)(Auto) 0 mg/dL 03/03/24 14:42 Urine Ketones (Auto) Negative 03/03/24 14:42 Urine Blood (Auto) 0 Willie/uL 03/03/24 14:42 Urine Bilirubin (Auto) 0 mg/dL 03/03/24 14:42 Urine Urobilinogen (Auto) 0.2 mg/dL 03/03/24 14:42 Leukocyte Esterase (Auto) 0 Jeancarlos/uL 03/03/24 14:42 Assessment & Plan Assessment & Plan (1) Elevated PSA: Code(s): R97.20 - Elevated prostate specific antigen [PSA] Category: Medical (2) Urinary frequency: Code(s): R35.0 - Frequency of micturition Category: Medical (3) Prostatitis: Code(s): N41.9 - Inflammatory disease of prostate, unspecified Category: Medical Plan In office urinalysis results reviewed with the patient today; as noted above. Recent PSA results reviewed with the patient today as noted above. DARY performed; as noted above. We discussed at length potential causes of elevated PSA. Start Bactrim as discussed and prescribed Discussed obtaining redraw of PSA 4-6 weeks status post completion of antibiotic therapy. Will obtain retroperitoneal ultrasound for further assessment evaluation. Follow-up in 6-8 weeks with imaging and labs to be completed prior; or sooner with any issues, concerns, and or questions. Orders: Orders AMB Urinalysis Automated Today Z13.9 - Encounter for screening, unspecified US retroperitoneal comp Today R35.0 - Frequency of micturition, R97.20 - Elevated prostate specific antigen [PSA] PSA,Total (Free>4and<10) 6 Weeks R35.0 - Frequency of micturition, R97.20 - Elevated prostate specific antigen [PSA] Medications: New sulfamethoxazole-trimethoprim 800-160 mg (Bactrim DS) 1 tab PO BID 14 days 28 tabs 0RF N39.0 - Urinary tract infection, site not specified Patient Instructions: The patient had an opportunity to ask questions regarding the treatment plan. All questions were answered. Physical exam, labs, and imaging were discussed and reviewed in detail. As well as risks, benefits, and discussion of treatment choices. No major barriers to understanding were identified. The patient expressed understanding and agreement with the above treatment plan. The patient was made aware they should contact our office by phone for worsening of their current condition, the appearance of new symptoms, or with any questions or concerns. Compliance is encouraged with any medications and follow up testing that is ordered. It is a privilege to be allowed the opportunity to participate in? your urological care.? Again, if you have any questions or concerns If you have any questions or concerns please do not hesitate to contact me. The office is [phone]. This note is constructed using voice recognition software. While every effort has been made to ensure accuracy pension adviser errors may have been included. Yours sincerely, SPENCER Lawler Coding Level of Care Code New Pt Level 4 (85586) Diagnoses Elevated PSA R97.20 Urinary frequency R35.0 Prostatitis N41.9
--- OUTSIDE RECORDS SUMMARY | 2024-03-09 04:06 | XMS_ITS | Patient Health Record ---
Author Organization [facility] Address [address] [place] [address] Care Team Providers Care Sales Support Representative Name Role Phone Alex PEÑA, Kyree Primary Care Provider Rj Claros Unavailable [phone] ALLERGIES Allergen (clinical drug ingredient) Drug/Non Drug Allergy documented on EMR Reaction Allergy Type Onset Date Status Penicillin Unknown Drug Allergy Active REASON FOR REFERRAL No Information MEDICATIONS Medication SIG (Take, Route, Fr equency, Duration) Notes Start Date End Date Status Simvastatin 20 MG TAKE 1 TABLET BY ELIZABETH TH EVERY DAY Oral for 90 Active SOCIAL HISTORY Tobacco Use: Social History Observation Description Date Details (start date - stop date) Never Smoker NA - NA Sex Assigned At : Social History Observation Description Sex Assigned At Unknown Tobacco Use/Smoking Question Answer Notes Patient is a nonsmoker Alcohol Screen Question Answer Notes Did you have a drink contain ing alcohol in the past year? Yes How often did you have a dri nk containing alcohol in the past year? 4 or more times a week (4 points) How many drinks did you have on a typical day when you were drinking in the past year? 3 or 4 drinks (1 point) How often did you have 6 or more drinks on one occasion in the past year? Never (0 point) Points 5 Interpretation Positive PROBLEMS Problem Type ICD Code Onset Dates Problem Status W/U Status Risk SNOMED Code Notes Problem Colon cancer screening (Z12.11) Active confirmed Colon cancer screening (895430296) Problem Encounter for other preprocedural examination (Z01.818) Active confirmed Pre-procedure evaluation check (539968201) VITAL SIGNS Blood pressure diastolic 00 mm Hg 01/13/2024 Height 5 ft 7 in in 01/13/2024 Blood pressure systolic 00 mm Hg 01/13/2024 Weight 180 lbs 01/13/2024 BMI 28.19 kg/m2 01/13/2024 Encounters Encounter Location Date Provider Diagnosis [facility] [address] [place] [address] 01/13/2024 Rj Robetr Colon cancer screeni ng Z12.11 and Encounter for other preprocedural examination Z01.818 ASSESSMENTS Encounter Date Diagnosis Assessment Notes Treatment Notes Treatment Clinical Notes 01/13/2024 Colon cancer screening (ICD-10 - Z12.11) 01/13/2024 Encounter for other preprocedural examination (ICD-10 - Z01.818) PLAN OF TREATMENT Future Test Test Name Order Date COLONOSCOPY 01/13/2024 Next Appt Details Provider Name:Rj Robert , 05/04/2024 11:20:00 AM, [address] , [place], [place], [id number], Insurance Providers Payer Name Payer Address Payer Phone Subscriber Number Group Number Insured Name Patient Relationship to Insured Coverage Start Date Coverage End Date [facility] [address] [address] [place] [address] [id number] [id number] SORENSON Self - patient is the insured MEDICAL (GENERAL) HISTORY Medical History History ICD Code Denies SD,DM,CVA,Lung disease,renal dise ase Negative colonoscopy in 12/17 14 at [facility] other than a hyperplastic polyp that was removed Hyperlipidemia Surgical History Surgery Date(Month/Year) tonsillectomy
--- OUTSIDE RECORDS SUMMARY | 2024-03-09 04:06 | XMS_ITS ---
Author Organization [facility] Address [address] [place] [address] Care Team Providers Care Board Setter Name Role Phone Kyree Johnson MD Primary Care Provider Rj Claros Unavailable [phone] ALLERGIES Allergen (clinical drug ingredient) Drug/Non Drug Allergy documented on EMR Reaction Allergy Type Onset Date Status Penicillin Unknown Drug Allergy Active REASON FOR VISIT Patient presents today for a colon screening MEDICATIONS Medication SIG (Take, Route, Fr equency, [...] screening (Z12.11) Active confirmed Colon cancer screening (785496404) Problem Encounter for other preprocedural examination (Z01.818) Active confirmed Pre-procedure evaluation check (471393177) VITAL SIGNS BMI 28.19 kg/m2 01/13/2024 Blood pressure systolic 00 mm Hg 01/13/20 24 Blood pressure diastolic 00 mm Hg 024 Height 5 ft 7 in in 01/13/2024 Weight 180 lbs 01/13/2024 Encounters Encounter Location Date Provider Diagnosis [facility] [address] [place] [address] 01/13/2024 Rj Robert Colon cancer screeni ng Z12.11 and Encounter for other preprocedural examination Z01.818 ASSESSMENTS Encounter Date Diagnosis Assessment Notes Treatment Notes Treatment Clinical Notes 01/13/2024 Colon cancer screening (ICD-10 - Z12.11) 01/13/2024 Encounter for other preprocedural examination (ICD-10 - Z01.818) PLAN OF TREATMENT Future Test Test Name Order Date COLONOSCOPY 01/13/2024 Next Appt Details Follow Up: prn, Reason: Provider Name:Rj Robert , 05/04/2024 11:20:00 AM, [address] [place] [address] , [place], [place], [phone], Progress Notes * Examination Category Sub-Category Detail Notes General Examination GENERAL APPEARANCE: pleasant , well nourished, well developed, in no acute distress HEAD: EYES: sclera non-icteric EARS: NOSE: THROAT: NECK/THYROID: no cervical lymphade nopathy, neck supple HEART: S1, S2 normal CHEST: LUNGS: clear to auscultatio n bilaterally ABDOMEN: normal bowel sounds, no guarding or rigidity, no guarding or rigidity, no masses palpable, soft, nontender, nondistended NEUROLOGIC: alert and oriented SKIN: nonjaundiced, no spi skye angiomata EXTREMITIES: no edema PERIPHERAL PULSES: BACK: BREASTS: MUSCULOSKELETAL: MALE GENITOURINARY: LYMPH NODES: RECTAL EXAM: FEMALE GENITOURINARY: ORAL CAVITY: mucosa moist
== END 2024-03-03 15:10 | disposition home or self-care (01) ==
PROVIDERS: PCP Internal Medicine; Visit Provider Nurse Practitioner Family
DX: R97.20 Elevated prostate specific antigen [PSA] (principal); R35.0 Frequency of micturition; N41.9 Inflammatory disease of prostate, unspecified; Z13.9 Encounter for screening, unspecified
CPT/HCPCS: 99204

== ENCOUNTER → 2024-03-03 14:33 | Outpatient (BNVA) | payer OTHER, SELFPAY | PROVIDERS: PCP Internal Medicine; Visit Provider Nurse Practitioner Family | DX: R97.20 Elevated prostate specific antigen [PSA] (principal); R35.0 Frequency of micturition; N41.9 Inflammatory disease of prostate, unspecified | CPT/HCPCS: 81003; 99202 ==

== ENCOUNTER 2024-04-26 14:50 | Outpatient (REF) | payer MEDICARE, SELFPAY ==
--- NOTE | ~2024-04-26 | US_ITS ---
CLINICAL HISTORY: R97.20 - Elevated prostate specific antigen [PSA] US Renal Comparison: None Findings: Right kidney normal size and echotexture, 9.4 cm length. Left kidney normal size and echotexture, 8.8 cm length. No collecting system dilatation of either kidney. Normal color Doppler. Urinary bladder is unremarkable. Prevoid volume 151 mL. Postvoid volume 41 mL. Bilateral ureteral jets are visualized. Prostate volume: 30 mL IMPRESSION: No hydronephrosis or suspicious renal lesion Mild postvoid residual. Borderline prominence of the prostate gland. This document has been electronically signed by: Praful Shelton MD on 04/27/2024 12:57:56
--- OUTSIDE RECORDS SUMMARY | 2024-04-26 15:48 | XMS_ITS | Patient Health Record ---
Author Organization [facility] Address [address] [place] [address] Care Team Providers Care Guyline Operator Name Role Phone Alex PEÑA, Kyree Primary Care Provider Rj Claros Unavailable [phone] ALLERGIES Allergen (clinical drug ingredient) Drug/Non Drug [...] screening (Z12.11) Active confirmed Colon cancer screening (129895846) Problem Encounter for other preprocedural examination (Z01.818) Active confirmed Pre-procedure evaluation check (459988986) VITAL SIGNS Blood pressure diastolic 00 mm Hg 01/13/2024 Height 5 ft 7 in in 01/13/2024 Blood pressure systolic 00 mm Hg 01/13/2024 Weight 180 lbs 01/13/2024 BMI 28.19 kg/m2 01/13/2024 Encounters Encounter Location Date Provider Diagnosis [facility] [address] [place] [phone] 01/13/2024 Rj Robert Colon cancer screeni ng Z12.11 and Encounter for other preprocedural examination Z01.818 [facility] [address] [place] [phone] 03/14/2024 Rj Robert ASSESSMENTS Encounter Date Diagnosis Assessment Notes Treatment Notes Treatment Clinical Notes 01/13/2024 Colon cancer screening (ICD-10 - Z12.11) 01/13/2024 Encounter for other preprocedural examination (ICD-10 - Z01.818) PLAN OF TREATMENT Future Test Test Name Order Date COLONOSCOPY 01/13/2024 Next Appt Details Provider Name:Rj Robert , 05/04/2024 11:20:00 AM, [address] [place] [address] , [place], [place], [phone], Insurance Providers Payer Name Payer Address Payer Phone Subscriber Number Group Number Insured Name Patient Relationship to Insured Coverage Start Date Coverage End Date Aetna (No Referra l) [address] [address] [place] [id number] ZI SORENSON Self - patient is the insured MEDICAL (GENERAL) HISTORY Medical History History ICD Code Denies RI,DM,CVA,Lung disease,renal dise ase Negative colonoscopy in 12/17 14 at [facility] other than a hyperplastic polyp that was removed Hyperlipidemia Surgical History Surgery Date(Month/Year) tonsillectomy
--- OUTSIDE RECORDS SUMMARY | 2024-04-26 15:48 | XMS_ITS ---
Author Organization [facility] Address [address] [place] [address] Care Team Providers Care Weight Reducing Technician Name Role Phone Kyree Johnson MD Primary Care Provider Rj Claros Unavailable [phone] ALLERGIES Allergen (clinical drug ingredient) Drug/Non Drug [...] screening (Z12.11) Active confirmed Colon cancer screening (603713602) Problem Encounter for other preprocedural examination (Z01.818) Active confirmed Pre-procedure evaluation check (790014525) VITAL SIGNS BMI 28.19 kg/m2 01/13/2024 Blood pressure systolic 00 mm Hg 01/13/20 24 Blood pressure diastolic 00 mm Hg 024 Height 5 ft 7 in in 01/13/2024 Weight 180 lbs 01/13/2024 Encounters Encounter Location Date Provider Diagnosis [facility] [address] [place] [address] 01/13/2024 Rj Robert Colon cancer screeni ng [...] Provider Name:Rj Robert , 05/04/2024 11:20:00 AM, [address] [place] [address] , [place], [place], [phone], Progress Notes * Examination Category Sub-Category Detail [...]
--- OUTSIDE RECORDS SUMMARY | 2024-04-26 15:48 | XMS_ITS ---
Author Organization [facility] Address [address] [place] [address] Care Team Providers Care Supervisor Pumping Station Name Role Phone Kyree Johnson MD Primary Care Provider Unavaila Rj Monzon Unavailable [phone] REASON FOR VISIT insurance to replace [employer]? Encounters Encounter Location Date Provider Diagnosis [facility] [address] [place] [phone] 03/14/2024 Rj Robert PLAN OF TREATMENT Next Appt Details Provider Name:Rj Robert , 05/04/2024 11:20:00 AM, [address] [place] [address] , [place], [place], [phone],
== END 2024-04-26 14:51 | disposition home or self-care (01) ==
LOC: HO.US 14:50
PROVIDERS: PCP Internal Medicine; Visit Provider Nurse Practitioner Family
DX: R97.20 Elevated prostate specific antigen [PSA] (principal); R35.0 Frequency of micturition
CPT/HCPCS: 76770

== ENCOUNTER → 2024-04-26 14:51 | Outpatient (BNV) | payer MEDICARE, SELFPAY | PROVIDERS: PCP Internal Medicine; Visit Provider Radiology Vascular & Interventional Radiology | DX: R97.20 Elevated prostate specific antigen [PSA] (principal) | CPT/HCPCS: 76770 ==

== ENCOUNTER 2024-05-02 13:45 | Outpatient (REF) | payer MEDICARE, SELFPAY ==
[2024-05-02 15:25] LABS: PSA,Total (Free>4and<10) 10.47 ng/mL (0.00-4.00)
== END 2024-05-02 13:46 | disposition home or self-care (01) ==
LOC: HO.LAB 13:45
PROVIDERS: PCP Internal Medicine; Visit Provider Nurse Practitioner Family
DX: R35.0 Frequency of micturition (principal); R97.20 Elevated prostate specific antigen [PSA]; Z12.5 Encounter for screening for malignant neoplasm of prostate
CPT/HCPCS: 36415; 84153

== ENCOUNTER → 2024-05-04 15:07 | Outpatient (BNVA) | payer MEDICARE, SELFPAY | PROVIDERS: PCP Internal Medicine; Visit Provider Nurse Practitioner Family | DX: R35.0 Frequency of micturition (principal); R97.20 Elevated prostate specific antigen [PSA] | CPT/HCPCS: 99212 ==

== ENCOUNTER 2024-05-11 10:25 | Outpatient (AMB) | payer MEDICARE, SELFPAY ==
--- NOTE | 2024-05-11 10:28 | MHC.PC.OV ---
Vital Signs 05/11/24 10:29 Height 5 ft 6.5 in Weight 188 lb 6 oz BMI 29.9 BP 130/72 Blood Pressure Location Lt brachial Position Sitting Pulse 97 Pulse Source Pulse Oximeter Temp 97.3 F Temp Source Skin Pulse Oximetry (%) 97 Oxygen Delivery Method Room Air Intake Visit Reasons: 3mth f/u Intake Note: Patient is here to follow up on HLD. Fence Repairman Required: No Upper Leather Cutter: Not Required per policy Accompanied by: Self / Same As Patient Allergies penicillin V Allergy (Unknown, Verified 05/11/24 10:29) Rash Medication List - Last Reconciled 05/11/24 by Kyree Johnson MD clotrimazole-betamethasone 1-0.05 % 1 appl topical BID 2 weeks epinephrine (EpiPen 2-Nate) 0.3 mg (0.3 mL) IM Q10M PRN hydroxyzine pamoate 25 mg PO QID PRN levofloxacin 500 mg PO daily 3 days simvastatin 20 mg PO DAILY Tobacco use date assessed: 05/11/24 Fall risk assessment: No Falls in past year Last assessed Fall Risk: 05/11/24 Dental Screening Dental Screen Date: 05/11/24 Did you have a dental visit in the last 12 months?: No Did you have a dental problem in the last 6 months where you did not have access to dental care?: No Was dental information given to patient?: No HPI 3mth f/u HPI Details hyperlipidemia on rx; doing well PFSH Medical History Hyperlipidemia Surgical History H/O thyroglossal duct cyst History of foot surgery Family History Father No problems noted. Mother Esophageal cancer Brother Past heart attack Social History Housing: House Alcohol intake: current Alcohol intake frequency: a few times a week Patient Tobacco Use Status: Never used Tobacco Tobacco use type: Cigarette e-Cigarette/Vaping Use: Never Used Second Hand Smoke Exposure: No service: No Current occupational status: retired Cognitive needs: No Hearing needs: Yes (hearing aide) Vision needs: Yes (glasses) Questionnaire PHQ-9 Over the last 2 weeks, how often have you been bothered by any of the following problems? 1. Little interest or pleasure in doing things: not at all 2. Feeling down, depressed, or hopeless: not at all 3. Trouble falling or staying asleep, or sleeping too much: not at all 4. Feeling tired or having little energy: not at all 5. Poor appetite or overeating: not at all 6. Feeling bad about yourself - or that you are a failure or have let yourself or your family down: not at all 7. Trouble concentrating on things, such as reading the newspaper or watching television: not at all 8. Moving or speaking so slowly that other people could have noticed. Or the opposite - being so fidgety or restless that you have been moving around a lot more than usual: not at all 9. Thoughts that you would be better off or of hurting yourself in some way: not at all Total score: 0 Depression Screening Interpretation: Negative Depression Screening Done: Yes Source: Developed by Drs. Rj Blair, Monica Nicolas, Lavon Contreras and colleagues, with an educational joey from [employer]. Thrive Questionnaire Date Thrive assessed: 05/11/24 I am a: Patient What is your living situation today?: I have a steady place to live Within the past 12 months, did the food you bought not last and you didn't have the money to get more?: Never true Within the past 12 months, did you worry whether your food would run out before you got money to buy more?: Never true Do you have trouble paying for medicines?: No Do you have trouble getting transportation to medical appointments?: No Do you have trouble paying your heating and electricity bill?: No Do you have trouble taking care of your child, family member or friend?: No Do you have trouble with day-to-day activities such as bathing, preparing meals, shopping, managing finances, etc.?: No Are you currently unemployed and looking for a job?: No Are you interested in more education?: No Please select the resources that you would like help with: None Currently or been in a relationship where the following occur: No concerns reported THRIVE Score: 0 AUDIT C Alcohol Use Questionnaire (AUDIT-C) 1. How often do you have a drink containing alcohol?: 4 or more times a week 2. How many drinks containing alcohol do you have on a typical day when you are drinking?: 1 or 2 Total Score: 4 SALIMA-7 AMB Questionnaire SALIMA-7 Date SALIMA - 7 assessed: 05/11/24 Feeling nervous, anxious, or on edge: 0 = Not at all Not being able to stop or control worryin = Not at all Worrying too much about different things: 0 = Not at all Trouble relaxin = Not at all Being so restless that it is hard to sit still: 0 = Not at all Becoming easily annoyed or irritable: 0 = Not at all Feeling afraid as if something awful might happen: 0 = Not at all Total SALIMA-7 score (0-4 normal; 5-9 mild; 10-14 moderate; 15-21 severe): 0 Source: Developed by Drs. Rj Blair, Monica Nicolas, Lavon Contreras and colleagues, with an educational joey from [employer]. Review of Systems Const Denies chills, Denies headache(s) and Denies weight loss ENT Denies headache(s) Card Denies chest pain, Denies syncope, Denies irregular heart rhythm and Denies dyspnea Resp Denies chest congestion, Denies cough and Denies dyspnea GI Denies abdominal pain, Denies change in stool character, Denies nausea and Denies vomiting Musc Denies deformity and Denies joint swelling Neuro Denies syncope and Denies headache(s) Physical exam (Primary Care) Vital Signs: Last Vital Signs Temp 97.3 F 05/11/24 10:29 Pulse 97 05/11/24 10:29 BP 130/72 05/11/24 10:29 Pulse Ox 97 05/11/24 10:29 Oxygen Delivery Method Room Air 05/11/24 10:29 BMI result Body Mass Index 29.9 Tobacco/Smoking Status: Tobacco use Status Tobacco use date assessed 05/11/24 05/11/24 10:34 Patient Tobacco Use Status Never used Tobacco 05/11/24 10:34 Tobacco use type Cigarette 05/11/24 10:34 e-Cigarette/Vaping Use Never Used 05/11/24 10:34 PHQ-9: PHQ-9 Score PHQ-9: Total score 0 05/11/24 10:34 Depression Screening Interpretation: Negative Thrive Assessment: Date of Thrive Assessment Date Thrive assessed 05/11/24 05/11/24 10:34 Currently or been in a relationship where the following occur: No concerns reported Const General: cooperative, comfortable, no acute distress and alert Neck Neck: Yes no lymphadenopathy Thyroid: Thyroid normal Resp Effort & Inspection: normal respiratory effort Auscultation: clear to auscultation bilaterally Percussion: percussion normal Cardio Jugular venous distension: no JVD Palpation: normal PMI Rate: regular rate Rhythm: regular rhythm Heart sounds: S1 normal heart sound present and S2 normal heart sound present GI Inspection: Yes normal to inspection Palpation (GI): No hepatosplenomegaly present Skin General skin exam: no rashes or lesions noted Extrem General: Yes no clubbing, cyanosis or edema Coding Level of Care Code Est Pt Level 3 (85845) Diagnoses Hyperlipidemia E78.5 Assessment & Plan Assessment & Plan (1) Hyperlipidemia: Code(s): E78.5 - Hyperlipidemia, unspecified Category: Medical Plan: stable; same rx Medications: Refilled epinephrine (EpiPen 2-Nate) for 2 doses 0.3 mg (0.3 mL) IM Q10M PRN 2 ea 1RF anaphylaxis
[2024-05-11 10:29] VITALS: BP 130/72; PULSE 97; TEMP 36.3; O2SAT 97; BMI 29.9
--- OUTSIDE RECORDS SUMMARY | 2024-05-11 12:10 | XMS_ITS | Patient Health Record ---
Author Organization [facility] Address [address] [place] [address] Care Team Providers Care Sheep Or Calf Grader Name Role Phone Alex PEÑA, Kyree Primary Care Provider Rj Claros Unavailable [phone] ALLERGIES Allergen (clinical drug ingredient) Drug/Non Drug [...] screening (Z12.11) Active confirmed Colon cancer screening (407024160) Problem Encounter for other preprocedural examination (Z01.818) Active confirmed Pre-procedure evaluation check (287479632) VITAL SIGNS Blood pressure diastolic 00 mm Hg 01/13/2024 Height 5 ft 7 in in 01/13/2024 Blood pressure systolic 00 mm Hg 01/13/2024 Weight 180 lbs 01/13/2024 BMI 28.19 kg/m2 01/13/2024 Encounters Encounter Location Date Provider Diagnosis [facility] [address] [place] [phone] 05/04/2024 Rj Robert [facility] [address] [place] [phone] 01/13/2024 Rj Robert Colon cancer screeni ng Z12.11 and Encounter for other preprocedural examination Z01.818 [facility] [address] [place] [phone] 03/14/2024 Rj Robert [facility] [address] [place] [phone] 05/03/2024 Rj Robert ASSESSMENTS Encounter Date Diagnosis Assessment Notes Treatment Notes Treatment Clinical Notes 01/13/2024 Colon cancer screening (ICD-10 - Z12.11) 01/13/2024 Encounter for other preprocedural examination (ICD-10 - Z01.818) PLAN OF TREATMENT Future Test Test Name Order Date COLONOSCOPY 01/13/2024 Next Appt Details Provider Name:Rj Robert , 08/19/2024 09:30:00 AM, [address] [place] [address] , [place], [place], [phone], Insurance Providers Payer Name Payer Address Payer Phone Subscriber Number Group Number Insured Name Patient Relationship to Insured Coverage Start Date Coverage End Date Aetna (No Referra l) [address] [address] [place] [id number] ZI SORENSON Self - patient is the insured MEDICAL (GENERAL) HISTORY Medical History History ICD Code Denies ME,DM,CVA,Lung disease,renal dise ase Negative colonoscopy in 12/17 14 at [facility] other than a hyperplastic polyp that was removed Hyperlipidemia Surgical History Surgery Date(Month/Year) tonsillectomy
--- OUTSIDE RECORDS SUMMARY | 2024-05-11 12:10 | XMS_ITS ---
Author Organization [facility] Address [address] [place] [address] Care Team Providers Care Motion Picture Camera Lens Technician Name Role Phone Kyree Johnson MD Primary Care Provider Unavaila Rj Monzon Unavailable [phone] REASON FOR VISIT insurance to replace [employer]? Encounters Encounter Location Date Provider Diagnosis [facility] [address] [place] [phone] 03/14/2024 Rj Robert PLAN OF TREATMENT Next Appt Details Provider Name:Rj Robert , 08/19/2024 09:30:00 AM, [address] [place] [address] , [place], [place], [phone],
--- OUTSIDE RECORDS SUMMARY | 2024-05-11 12:10 | XMS_ITS ---
Author Organization [facility] Address [address] [place] [address] Care Team Providers Care Candy Forming Machine Operator Name Role Phone Kyree Johnson MD Primary Care Provider Unavaila Rj Monzon Unavailable [phone] REASON FOR VISIT Prostate test/ waiting on pt call back Encounters Encounter Location Date Provider Diagnosis [facility] [address] [place] [phone] 05/03/2024 Rj Robert PLAN OF TREATMENT Next Appt Details Provider Name:Rj Robert , 08/19/2024 09:30:00 AM, [address] [place] [address] , [place], [place], [phone],
--- OUTSIDE RECORDS SUMMARY | 2024-05-11 12:11 | XMS_ITS ---
Author Organization [facility] Address [address] [place] [address] Care Team Providers Care Hydroelectric Mechanic Name Role Phone Kyree Johnson MD Primary Care Provider Unavaila Rj Monzon Unavailable [phone] REASON FOR VISIT screening Encounters Encounter Location Date Provider Diagnosis [facility] [address] [place] [id number] 05/04/2024 Rj Robert PLAN OF TREATMENT Next Appt Details Provider Name:Rj Robert , 08/19/2024 09:30:00 AM, [address] [place] [address], [phone],
== END 2024-05-11 10:51 | disposition home or self-care (01) ==
PROVIDERS: PCP Internal Medicine; Visit Provider Internal Medicine
DX: E78.5 Hyperlipidemia, unspecified (principal)

== ENCOUNTER → 2024-05-11 10:25 | Outpatient (BNVA) | payer MEDICARE, SELFPAY | PROVIDERS: PCP Internal Medicine; Visit Provider Internal Medicine | DX: E78.5 Hyperlipidemia, unspecified (principal) | CPT/HCPCS: 99212 ==

== ENCOUNTER 2024-05-12 07:56 | Outpatient (REF) | payer MEDICARE, SELFPAY ==
--- OUTSIDE RECORDS SUMMARY | 2024-05-12 07:58 | XMS_ITS ---
Author Organization [facility] Address [address] [place] [address] Care Team Providers Care Operations Director Name Role Phone Kyree Johnson MD Primary Care Provider Unavaila Rj Monzon Unavailable [phone] REASON FOR VISIT screening Encounters Encounter Location Date Provider Diagnosis [facility] Out[facility] [address] [place] [id number] 05/04/2024 Rj Robert PLAN OF TREATMENT Next Appt Details Provider Name:Rj Robert , 08/19/2024 09:30:00 AM, [address] [place] [address], [phone],
--- OUTSIDE RECORDS SUMMARY | 2024-05-12 07:58 | XMS_ITS | Patient Health Record ---
Author Organization [facility] Address [address] [place] [address] Care Team Providers Care Dog Handler Name Role Phone Alex PEÑA, Kyree Primary Care Provider Rj Claros Unavailable [phone] ALLERGIES Allergen (clinical drug ingredient) Drug/Non Drug [...] screening (Z12.11) Active confirmed Colon cancer screening (505011799) Problem Encounter for other preprocedural examination (Z01.818) Active confirmed Pre-procedure evaluation check (985894414) VITAL SIGNS Blood pressure diastolic 00 mm Hg 01/13/2024 Height 5 ft 7 in in 01/13/2024 Blood pressure systolic 00 mm Hg 01/13/2024 Weight 180 lbs 01/13/2024 BMI 28.19 kg/m2 01/13/2024 Encounters Encounter Location Date Provider Diagnosis [facility] [address] [place] [phone] 05/04/2024 Rj Robert [facility] [address] [place] [phone] 01/13/2024 Rj Robert Colon cancer screeni ng Z12.11 and Encounter for other preprocedural examination Z01.818 [facility] [address] [place] [phone] 03/14/2024 Rj Robert [facility] [address] [place] [phone] 05/03/2024 Rj Robert ASSESSMENTS Encounter Date Diagnosis Assessment Notes Treatment Notes Treatment Clinical Notes 01/13/2024 Colon cancer screening (ICD-10 - Z12.11) 01/13/2024 Encounter for other preprocedural examination (ICD-10 - Z01.818) PLAN OF TREATMENT Future Test Test Name Order Date COLONOSCOPY 01/13/2024 Next Appt Details Provider Name:Rj Robert , 08/19/2024 09:30:00 AM, [address] [place] [address] , [place], [place], [phone], Insurance Providers Payer Name Payer Address Payer Phone Subscriber Number Group Number Insured Name Patient Relationship to Insured Coverage Start Date Coverage End Date Aetna (No Referra l) [address] [address] [place] [address] [id number] ZI SORENSON Self - patient is the insured MEDICAL (GENERAL) HISTORY Medical History History ICD Code Denies [place],DM,CVA,Lung disease,renal dise ase Negative colonoscopy in 12/17 14 at [facility] other than a hyperplastic polyp that was removed Hyperlipidemia Surgical History Surgery Date(Month/Year) tonsillectomy
--- OUTSIDE RECORDS SUMMARY | 2024-05-12 07:58 | XMS_ITS ---
Author Organization [facility] Address [address] [place] [address] Care Team Providers Care Geology Instructor Name Role Phone Kyree Johnson MD Primary Care Provider Unavaila Rj Monzon Unavailable [phone] REASON FOR VISIT Prostate test/ waiting on pt call back Encounters Encounter Location Date Provider Diagnosis [facility] [address] [place] [phone] 05/03/2024 Rj Robert PLAN OF TREATMENT Next Appt Details Provider Name:Rj Robert , 08/19/2024 09:30:00 AM, [address] [place] [address] , [place], [place], [phone],
--- OUTSIDE RECORDS SUMMARY | 2024-05-12 07:58 | XMS_ITS ---
Author Organization [facility] Address [address] [place] [address] Care Team Providers Care Health And Wellness Director Name Role Phone Kyree Johnson MD Primary Care Provider Unavaila Rj Monzon Unavailable [phone] REASON FOR VISIT insurance to replace [employer]? Encounters Encounter Location Date Provider Diagnosis [facility] [address] [place] [phone] 03/14/2024 Rj Robert PLAN OF TREATMENT Next Appt Details Provider Name:Rj Robert , 08/19/2024 09:30:00 AM, [address] [place] [address] , [place], [place], [phone],
[2024-05-12] MEDS: Lidocaine HCl 1 % MPF 5 ML VIAL 10 ML SUBCUT (08:36)
--- NOTE | 2024-05-12 08:52 | P.OP_ITS ---
Operative Note Operative Note Date of Service: 05/12/24 Narrative: Preoperative diagnosis: Elevated PSA Postoperative diagnosis: Elevated PSA Procedure: 1. transrectal ultrasound measurement of prostate 2. transrectal ultrasound-guided pudendal nerve block 3. transrectal ultrasound-guided prostate biopsy 12 core Surgeon: Dr. Jay Jay Dee Anesthetic: 10cc 1% lidocaine Indications for procedure: Elevated PSA 10.5 Counselling: Technical aspects, risks and benefits of proposed procedure were discussed in full. All questions have been answered, written consent has been obtained and patient agrees to proceed. Procedure: The patient was brought into the procedure area and placed in a left lateral decubitus position. Patient identity confirmed. Perioperative antibiotics confirmed. Safety pause time out performed. DARY was performed to dilate rectal sphincter Iodine 10cc with 60 cc gel was placed per rectum to reduce infection risk using a catheter tip syringe. 8 Hz Zoila rectal end-fire ultrasound probe was placed transrectally without difficulty. The prostate was visualized. Seminal vesicles were normal. Prostate margins were clearly demarcated. Bladder was seen superiorly. Multiple midline cystic structures were noted No calcifications were noted at the surgical margin The prostate was otherwise heterogenous in nature, no clear area of concentration or whorl suggestive of prostate cancer The prostate was measured in 3 dimensions Prostatic Width: 4.5 cm Prostatic Height: 3.7 cm Urethral Length: 4.4 cm Total volume equals : 40 ml An ultrasound-guided pudendal nerve block was performed using a 22 gauge spinal needle in the sagittal plane. 4 cc of 1% lidocaine placed at the junction of each seminal vesicle and 2 cc placed at the apex of the prostate. A 12 core biopsy was performed with 6 cores each side using an 18 gauge prostate biopsy gun. Two cores each were taken at the prostate apex, mid and base on each side. Cores were spaced between lateral and medial aspects. Each core was examined as placed on specimen foam as part of quality control microbiologist to ensure a minimum 1 cm of length and minimal discontinuity. He tolerated the procedure well with minimal rectal bleeding. Blood pressure remained stable following procedure. He was able to ambulate to bathroom after 5 minutes. Printed instructions regarding antibiotic use and common adverse events from the procedure such as low-grade temperature, potential infection and bleeding were given. He understands to call the office or go to an emergency room should any of these events arise. Pathology: 12 core prostate biopsy. CPT code 61604: Transrectal ultrasound; this is a diagnostic test for evaluation of the prostate and surrounding structures, looking for abnormalities or suspicious areas worrisome for cancer CPT code 04039: Biopsy, prostate; needle or punch, single or multiple, any approach CPT code 04829: Ultrasonic guidance for needle placement (eg, biopsy, aspiration, injection, localization device), imaging supervision and interpretation
== END 2024-05-12 07:57 | disposition home or self-care (01) ==
LOC: HO.US 07:56
PROVIDERS: PCP Internal Medicine; Visit Provider Urology
DX: R97.20 Elevated prostate specific antigen [PSA] (principal)
CPT/HCPCS: 55700; 76942; 88305; J2003

== ENCOUNTER → 2024-05-12 07:56 | Outpatient (BNV) | payer MEDICARE, SELFPAY | PROVIDERS: PCP Internal Medicine; Visit Provider Urology | DX: R97.20 Elevated prostate specific antigen [PSA] (principal) | CPT/HCPCS: 55700; 76872; 76942 ==

== ENCOUNTER 2024-07-05 15:03 | Outpatient (AMB) | payer MEDICARE, SELFPAY ==
--- NOTE | 2024-07-05 15:04 | A.OFFVIS_ITS ---
Intake Visit Reasons: prostate biopsy results Intake Note: Patient is present for PROSTATE BIOPSY RESULTS Urology Medication:NONE Antibiotic Allergy:PENICILLIN Blood Thinner:NONE Seat Nailer Required: No Allergies penicillin V Allergy (Unknown, Verified 07/05/24 15:05) Rash HPI Comments Details: Joey is a very pleasant male. He is a patient of Dr. Johnson. He is seen for the following urologic conditions - prostate cancer Telemedicine Evaluation 15 min Consultation Masterseek Rohith Video Recent prostate biopsy for elevated PSA PSA had moved from 5.8 in September 2023 to 9.8 by December 2023 Prostate biopsy shows high-grade prostate cancer in multiple cores Recommend prostate MRI and PET-CT PSMA for prostate staging Recommend therapy would be radiation however extent of disease needs to be displayed Prostate cancer grade group 5 multi core TRUS 40gm Histologic grade: Hoffmeister score: 4+5=9 (right base medial), 3+5=8 (left apex lateral), 4+3=7 (right apex medial), 3+4=7 (all other biopsies) % of pattern 4: 20% % of pattern 5: 5% Grade group: 5, 4, 3 and 2 Tumor quantitation: Number cores positive: 12 Total number of cores: 12 % of tissue involved: 70% of all tissue examined Periprostatic fat inv.: Suspicious Seminal vesicle inv.: Not identified Perineural inv.: Present LVI: Not identified [facility] Medical History Hyperlipidemia Surgical History H/O thyroglossal duct cyst History of foot surgery Family History Father No problems noted. Mother Esophageal cancer Brother Past heart attack Social History Housing: House Alcohol intake: current Alcohol intake frequency: a few times a week Patient Tobacco Use Status: Never used Tobacco Tobacco use type: Cigarette e-Cigarette/Vaping Use: Never Used Second Hand Smoke Exposure: No service: No Current occupational status: retired Cognitive needs: No Hearing needs: Yes (hearing aide) Vision needs: Yes (glasses) Review of Systems Const All systems reviewed & are unremarkable except as noted in HPI and below Reports no additional complaints Resp Reports no additional complaints GI Reports no additional complaints Reports as per HPI Musc Reports no additional complaints Physical Exam Telemedicine evaluation Appropriate responses Regular breathing rate and rhythm HEENT Head: Yes normal to inspection Ears: hearing grossly normal bilaterally Eyes General: appearance normal, both eyes and all related structures Neck Neck: Yes normal visual inspection Chest Chest palpation & inspection: normal inspection of the chest Resp Effort & Inspection: normal respiratory effort and able to speak in complete sentences Telehealth Telehealth Telehealth Platform: [email or web address] Location of provider rendering services: practice address Location of patient: address on file Patient Identification confirmed using: Name, : Yes Telehealth method: video Patient verbally consented to treatment: Yes Patient verbally consented to billing insurance company: Yes Patient informed of any privacy concerns related to visit: Yes Minutes spent on Phone/Video with Pt.: 15 Assessment & Plan Assessment & Plan (1) Hormone sensitive prostate cancer: Code(s): C61 - Malignant neoplasm of prostate; Z19.1 - Hormone sensitive malignancy status Category: Medical Plan High-grade prostate cancer initial diagnosis Complete staging Orders: Orders MR Prostate wo/w con Today C61 - Malignant neoplasm of prostate, Z19.1 - Hormone sensitive malignancy status PET CT fusion skull to thigh Today C61 - Malignant neoplasm of prostate, Z19.1 - Hormone sensitive malignancy status Patient Instructions: This note is constructed using voice recognition software. While every effort has been made to ensure accuracy transfusion aide errors may have been included. Imaging studies, laboratory and physical exam results were discussed and reviewed in detail. No major barriers to patient understanding were identified. An opportunity to ask questions regarding the treatment plan was provided. All questions were answered. The patient expressed understanding and agreement with the above treatment plan. The patient is aware they should contact our office by phone for worsening of their current condition or the appearance of new urologic symptoms. Compliance is encouraged with any medications and followup testing that is ordered. It is a privilege to participate in the urologic care of your patient. If you have any questions or concerns regarding treatment for the above conditions, or other urologic issues, please do not hesitate to contact me. The office telephone contact is [phone]. Sincerely, Dr Jay Jay Dee MD, [facility] - Urology Compassionate Specialist Care for the Genitourinary System Coding Level of Care Code Tele Est Pt Level 4 (69888) Complex EM visit Add On G2211 Diagnoses Hormone sensitive prostate cancer C61; Z19.1
--- OUTSIDE RECORDS SUMMARY | 2024-07-05 18:07 | XMS_ITS ---
Author Organization [facility] Address [address] [place] [address] Care Team Providers Care Settlement Processor Name Role Phone Kyree Johnson MD Primary Care Provider Unavaila Rj Monzon Unavailable [phone] REASON FOR VISIT insurance to replace [employer]? Encounters Encounter Location Date Provider Diagnosis [facility] [address] [place] [phone] 03/14/2024 Rj Robert Plan Of Treatment Next Appt Details Provider Name:Rj Robert , 08/19/2024 09:30:00 AM, [address] [place] [address] , [place], [place], [phone], Progress Notes * ZI SORENSONDOB: 0 (73 yo M)Acc No.[id number]:03/14/2024 Patient:?ZI SORENSON :1950???Age:73 Y???Sex:Male Address:[address] [place] [address] , [place] [address] * true * Date:? Generated for Rolandoi virgil/Paresh/eTransmitting on:?07/05/2024 06:07 PM EDT
--- OUTSIDE RECORDS SUMMARY | 2024-07-05 18:08 | XMS_ITS ---
Author Organization [facility] Address [address] [place] [address] Care Team Providers Care Door To Door Salesman Name Role Phone Kyree Johnson MD Primary Care Provider Unavaila Rj Monzon Unavailable [phone] REASON FOR VISIT screening Encounters Encounter Location Date Provider Diagnosis [facility] [address] [place] [phone] 05/04/2024 Rj Robret Plan Of Treatment Next Appt Details Provider Name:Rj Robert , 08/19/2024 09:30:00 AM, [address] [place] [address], [phone], Progress Notes * ZI SORENSONDOB: 0 (73 yo M)Acc No.[id number]:05/04/2024 COLON WITH MAC Patient:?ZI SORENSON Provider:?Rj Robert MD :1950???Age:73 Y???Sex:Male Fran e:05/04/2024 Address:[address] [place], [place] [id number] Pcp:Kyree Johnson MD Subjective: * Chief Complaints: * ???1. Screening. * Medical History:? Objective: * Vitals:? Assessment: Plan: * Treatment: * * The named appointment provid er may or may not be the originator of this progress note, and it is not deemed complete until electronically signed by the appointment provider. Sign off status: Pending * Provider:?Rj Robert MD Date:? 025 Generated for Tomer herman/Paresh/eTransmitting on:?07/05/2024 06:08 PM EDT
--- OUTSIDE RECORDS SUMMARY | 2024-07-05 18:08 | XMS_ITS | Patient Health Record ---
Author Organization [facility] Address [address] [place] [address] Care Team Providers Care Salesperson New Cars Name Role Phone Alex PEÑA, Kyree Primary Care Provider Rj Claros Unavailable [phone] Allergies Allergen (clinical drug ingredient) Drug/Non Drug Allergy documented on EMR Reaction Allergy Type Onset Date Status Penicillin Unknown Drug Allergy Active Reason For Referral No Information Medications Medication SIG (Take, Route, Fr equency, Duration) Notes Start Date End Date Status Simvastatin 20 MG TAKE 1 TABLET BY ELIZABETH TH EVERY DAY Oral for 90 Active Social History Tobacco Use: Social History Observation Description Date Details (start date - stop date) Never Smoker NA - NA Tobacco Use/Smoking Question Answer Notes Patient is [...] Never (0 point) Points 5 Interpretation Positive Section Notes: Occasional alcohol; nonsmoke r Problems Problem Type SNOMED Code ICD Code Onset Dates Problem Status W/U Status Risk Notes Problem Colon cancer screening (417087079) Colon cancer screening (Z12.11) Active confirmed Problem Pre-procedure evaluation check (932331686) Encounter for other preprocedural examination (Z01.818) Active confirmed Vital Signs Blood pressure diastolic 00 mm Hg 01/13/2024 Height 5 ft 7 in in 01/13/2024 Blood pressure systolic 00 mm Hg 01/13/2024 Weight 180 lbs 01/13/2024 BMI 28.19 kg/m2 01/13/2024 Encounters Encounter Location Date Provider Diagnosis [facility] [address] [place] [address] 01/13/2024 Rj Robert Colon cancer screeni ng Z12.11 and Encounter for other preprocedural examination Z01.818 [facility] [address] [place] [address] 03/14/2024 Rj Robert [facility] [address] [place] [address] 05/03/2024 Rj Robert Assessments Encounter Date Diagnosis (ICD Code) Assessment Notes Treatment Notes Treatment Clinical Notes Section Notes 01/13/2024 Colon cancer screening (ICD-10 - Z12.11) Overall, Jevon appears quite well. Given his age, good clinical appearance, and last colonoscopy being just over 10 years ago, I did recommend a followup colonoscopy for further screening purposes. We did review the rationale for this in regard to colon cancer prevention. Full Consent is obtained for this, including risks of bleeding and perforation. The procedure will be done monitored anesthesia care. Jevon was comfortable with this plan. Thank you again for allowing me to participate in Jevon's care. I shall continue to keep you advised of his progress. 01/13/2024 Encounter for other preprocedural examination (ICD-10 - Z01.818) Overall, Jevon appears quite well. Given his age, good clinical appearance, and last colonoscopy being just over 10 years ago, I did recommend a followup colonoscopy for further screening purposes. We did review the rationale for this in regard to colon cancer prevention. Full Consent is obtained for this, including risks of bleeding and perforation. The procedure will be done monitored anesthesia care. Jevon was comfortable with this plan. Thank you again for allowing me to participate in Jevon's care. I shall continue to keep you advised of his progress. Plan Of Treatment Future Test Test Name Order Date COLONOSCOPY 01/13/2024 Next Appt Details Provider Name:Rj Robert , 08/19/2024 09:30:00 AM, [address] [place] [address] , [place], [place], [phone], Insurance Providers Payer Name Payer Address Payer Phone Subscriber Number Group Number Insured Name Patient Relationship to Insured Coverage Start Date Coverage End Date Aetna (No Referra l) [address] [address] [place] [id number] JEVON SORENSON Self - patient is the insured Medical (General) History Medical History History ICD Code Denies [place],DM,CVA,Lung disease,renal dise ase Negative colonoscopy in 12/17 14 at [facility] other than a hyperplastic polyp that was removed Hyperlipidemia Surgical History Surgery Date(Month/Year) tonsillectomy
--- OUTSIDE RECORDS SUMMARY | 2024-07-05 18:08 | XMS_ITS ---
Author Organization [facility] Address [address] [place] [address] Care Team Providers Care Pearl Diver Name Role Phone Kyree Johnson MD Primary Care Provider Unavaila Rj Monzon Unavailable [phone] REASON FOR VISIT Prostate test/ waiting on pt call back Encounters Encounter Location Date Provider Diagnosis [facility] [address] [place] [phone] 05/03/2024 Rj Robert Plan Of Treatment Next Appt Details Provider Name:Rj Robert , 08/19/2024 09:30:00 AM, [address] [place] [address] , [place], [place], [phone], Progress Notes * ZI SORENSONDOB: 0 (73 yo M)Acc No.[id number]:05/03/2024 Patient:?ZI SORENSON :1950???Age:73 Y???Sex:Male Address:[address] [place] [phone] * true * Date:? Generated for Printi virgil/Paresh/eTransmitting on:?07/05/2024 06:08 PM EDT
== END 2024-07-06 07:44 | disposition home or self-care (01) ==
LOC: HO.HUSH 15:03
PROVIDERS: PCP Internal Medicine; Visit Provider Urology
DX: C61 Malignant neoplasm of prostate (principal); Z19.1 Hormone sensitive malignancy status
CPT/HCPCS: 99214; G2211

== ENCOUNTER → 2024-07-05 15:03 | Outpatient (BNVA) | payer MEDICARE, SELFPAY | PROVIDERS: PCP Internal Medicine; Visit Provider Urology ==

== ENCOUNTER 2024-08-09 13:31 | Outpatient (AMB) | payer MEDICARE, SELFPAY ==
--- NOTE | 2024-08-09 13:31 | MHC.OFFVIS ---
Intake Visit Reasons: follow up/Pet CT/discuss denial MRI Intake Note: Patient is present for PET CT/ DISCUSS DENIAL MRI Urology Medication:NONE Antibiotic Allergy:PENICILLIN V Blood Thinner:NONE Manager Membership Required: No Allergies penicillin V Allergy (Unknown, Verified 08/09/24 13:32) Rash HPI Comments Details: Joey is a very pleasant male. He is a patient of Dr. Johnson. He is seen for the following urologic conditions - prostate cancer Telemedicine Evaluation 15 min Consultation DoximRE[employer]IVE Rohith Video Discussed staging PET-CT showed disease localized prostate Prostate MRI had been denied. Will resubmit. The purpose of the prostate MRI as to delineate whether there is T3 versus T2 prostate cancer staging. There is no other imaging tests that is able to differentiate this finding. This makes a significant difference in treatment process as a T2 tumor can have space or to protect the rectum versus a T3 tumor in which SpaceOAR is not able to be applied. Prostate cancer grade group 5 multi core - localized disease off PET-CT Imaging - 07/22 PET-CT shows localization of disease to prostate TRUS 40gm Histologic grade: Cleveland score: 4+5=9 (right base medial), 3+5=8 (left apex lateral), 4+3=7 (right apex medial), 3+4=7 (all other biopsies) % of pattern 4: 20% % of pattern 5: 5% Grade group: 5, 4, 3 and 2 Tumor quantitation: Number cores positive: 12 Total number of cores: 12 % of tissue involved: 70% of all tissue examined Periprostatic fat inv.: Suspicious Seminal vesicle inv.: Not identified Perineural inv.: Present LVI: Not identified [facility] Medical History Hyperlipidemia Surgical History H/O thyroglossal duct cyst History of foot surgery Family History Father No problems noted. Mother Esophageal cancer Brother Past heart attack Social History Housing: House Alcohol intake: current Alcohol intake frequency: a few times a week Patient Tobacco Use Status: Never used Tobacco Tobacco use type: Cigarette e-Cigarette/Vaping Use: Never Used Second Hand Smoke Exposure: No service: No Current occupational status: retired Cognitive needs: No Hearing needs: Yes (hearing aide) Vision needs: Yes (glasses) Review of Systems Const All systems reviewed & are unremarkable except as noted in HPI and below Reports no additional complaints Resp Reports no additional complaints GI Reports no additional complaints Reports as per HPI Musc Reports no additional complaints Physical Exam Telemedicine evaluation Appropriate responses Regular breathing rate and rhythm HEENT Head: Yes normal to inspection Ears: hearing grossly normal bilaterally Eyes General: appearance normal, both eyes and all related structures Neck Neck: Yes normal visual inspection Chest Chest palpation & inspection: normal inspection of the chest Resp Effort & Inspection: normal respiratory effort and able to speak in complete sentences Telehealth Telehealth Location of provider rendering services: practice address Location of patient: address on file Patient Identification confirmed using: Name, : Yes Telehealth method: voice only Patient verbally consented to treatment: Yes Patient verbally consented to billing insurance company: Yes Patient informed of any privacy concerns related to visit: Yes Assessment & Plan Assessment & Plan (1) Hormone sensitive prostate cancer: Code(s): C61 - Malignant neoplasm of prostate; Z19.1 - Hormone sensitive malignancy status Category: Medical Plan High-grade prostate cancer - prostate MRI Start bicalutamide 2 week follow-up [facility] Medications: New bicalutamide 50 mg PO TID 30 days 90 tabs 0RF C61 - Malignant neoplasm of prostate, Z19.1 - Hormone sensitive malignancy status Patient Instructions: This note is constructed using voice recognition software. While every effort has been made to ensure accuracy manager analytical errors may have been included. Imaging studies, laboratory and physical exam results were discussed and reviewed in detail. No major barriers to patient understanding were identified. An opportunity to ask questions regarding the treatment plan was provided. All questions were answered. The patient expressed understanding and agreement with the above treatment plan. The patient is aware they should contact our office by phone for worsening of their current condition or the appearance of new urologic symptoms. Compliance is encouraged with any medications and followup testing that is ordered. It is a privilege to participate in the urologic care of your patient. If you have any questions or concerns regarding treatment for the above conditions, or other urologic issues, please do not hesitate to contact me. The office telephone contact is [phone]. Sincerely, Dr Jay Jay Dee MD, [facility] - Urology Compassionate Specialist Care for the Genitourinary System Coding Level of Care Code Tele Est Pt Level 4 (07721) Complex EM visit Add On G2211 Diagnoses Hormone sensitive prostate cancer C61; Z19.1
--- OUTSIDE RECORDS SUMMARY | 2024-08-09 14:35 | XMS_ITS ---
Author Organization [facility] Address [address] [place] [address] Care Team Providers Care Academic Physician Name Role Phone Kyree Johnson MD Primary Care Provider Unavaila Rj Monzon Unavailable [phone] REASON FOR VISIT insurance to replace [employer]? Encounters Encounter Location Date Provider Diagnosis [facility] [address] [place] [phone] 03/14/2024 Rj Robert Plan Of Treatment Next Appt Details Provider Name:Rj Robert , 08/19/2024 09:30:00 AM, [address] [place] [address] , [place], [place], [phone], Progress Notes * ZI SORENSONDOB: 0 (73 yo M)Acc No.[id number]:03/14/2024 Patient:?ZI SORENSON :1950???Age:73 Y???Sex:Male Address:[address] [place] [address] , [place] [address] * true * Date:? Generated for Rolandoi virgil/Paresh/eTransmitting on:?08/09/2024 02:35 PM EDT
--- OUTSIDE RECORDS SUMMARY | 2024-08-09 14:35 | XMS_ITS | Clinical Summary ---
Author Organization [facility] Address [address] [place] [address] Phone Care Team Providers Care Calender Operator Name Role Phone Unavailable Primary Care Provider Unavailabl e Encounters Date Type Department Care Team Description 07/20/2024 3:14 PM EDT - 07/20/2024 11:59 PM EDT Hospital Encounter [facility] PET Scan [address] [place] [address] Prostate cancer (CMS/HCC V24, CMS/HCC V28) Discharge Disposition: Home or Self Care from Last 3 Months Social History Tobacco Use Types Packs/Day Years Used Date Smoking Tobacco: Never Assessed Sex and Gender Information Value Date Recorded Sex Assigned at Not on file Legal Sex Male 2:58 PM EDT Gender Identity Not on file Sexual Orientation Not on file Plan of Treatment Health Maintenance Due Date Last Done Comments Pneumococcal Vaccine: 50+ Years (2 of 2 - PPSV23) 03/19/2018 01/22/2018 COVID-19 Vaccine (7 - Moderna risk 2023- season) 2024 12/02/2023, 01/08/2023, 01/08/2022, Additional history exists Cholesterol Screening (Lipid Panel) 07/21/2024 Colorectal Cancer Screening: Colonoscopy 07/21/2024 Depression Screening 07/21/2024 Falls Risk Assessment 07/21/2024 Hepatitis C Screening 07/21/2024 Hypertension/CHF/CAD Annual BMP Blood Test 07/21/2024 Medicare Annual Wellness Visit 07/21/2024 Social Influencers of Health Screening 07/21/2024 RSV Immunization Adult Patients (1 - 1-dose 75+ series) 2024 DTaP,Tdap,and Td Vaccines (3 - Td or Tdap) 07/17/2034 07/17/2024, 11/20/2014 Zoster Vaccines Completed 07/29/2023, 05/11/2023 Influenza Vaccine Completed 12/02/2023, , 01/08/2022, Additional history exists HIB Vaccines Aged Out No longer eligi ble based on patient's age to complete this topic HPV Vaccines Aged Out No longer eligi ble based on patient's age to complete this topic Hepatitis A Vaccines Aged Out No long er eligible based on patient's age to complete this topic Hepatitis B Vaccines Aged Out No long er eligible based on patient's age to complete this topic IPV Vaccines Aged Out No longer eligi ble based on patient's age to complete this topic MMR Vaccines Aged Out No longer eligi ble based on patient's age to complete this topic Meningococcal ACWY Vaccine Aged Out N o longer eligible based on patient's age to complete this topic Meningococcal B Vaccine Aged Out No l onger eligible based on patient's age to complete this topic RSV Immunization Patients Under 20 months Aged Out No longer eligible based on patient's age to complete this topic Varicella Vaccines Aged Out No longer eligible based on patient's age to complete this topic Procedures Procedure Name Priority Date/Time Associated Diagnosis Comments PET CT SKULL TO MID THIGH INITIAL Routine 07/20/2024 5:10 PM EDT Prostate cancer ([facility] V24, [facility] V28) from Last 3 Months Results * PET CT Skull to Mid Thigh Initial (07/20/2024 5:10 PM EDT) Anatomical Region Laterality Modality Body Radiographic Nathalia ging 07/26/2024 4:53 AM EDT Impressions 07/26/2024 5:16 AM EDT 1. ??Focal activity within the prostate gland in keeping with prostate carcinoma 2. ??Nonspecific activity within the left lower neck, right hilar region and left retropectoral region which may correspond to nonenlarged lymph nodes/vessels/ganglia with activity either similar or slightly more than blood pool. 3. ??6 mm pulmonary nodule versus vessel in the right lung without significant activity. ??This can be followed. -------- FINAL REPORT -------- Dictated By: Ana Griffith Dictated Date: 07/26/2024 04:53 ET Assigned Physician: Ana Griffith Reviewed and Electronically Signed By: Ana Griffith Signed Date: 07/26/2024 05:16 ET Workstation ID: [id number] Transcribed By: Self Edit Transcribed Date: 07/26/2024 04:53 ET Narrative 07/26/2024 5:16 AM EDT HISTORY: Prostate carcinoma, initial treatment. PRIOR IMAGING STUDIES: None RADIOPHARMACEUTICAL: 10 mCi F-18 piflufolastat IV INJECTION SITE: Right antecubital INJECTION TIME TO SCAN TIME: 60 min PROCEDURE: Routine body PET-CT imaging performed from the head to the upper thighs and reconstructed in axial, coronal, sagittal planes at the computer workstation with fused data from both the PET imaging study and attenuation correction CT study. Please note, CT imaging utilized strictly for attenuation correction and anatomic localization: CT not designed to produce and cannot replace mfkuk-cj-rzt-art true diagnostic CT examination with specific protocols. ??Standardized uptake values (SUV) normalized to patient body weight and indicate the highest active concentration (SUV max) in a given disease site. DLP: ??568 mGy-cm IMAGING FINDINGS: Reference Values SUV Max: Parotid: 13.4 Blood Pool: ??2.5 Liver: ??7.9 Expected pattern of physiological activity noted. HEAD AND NECK: Focal activity in the left lower neck SUV max 2.6 which may correspond to a 6 mm lymph node versus vessel/ganglion. Fluid level in the right maxillary sinus without significant activity. ?? THORAX: Nonspecific right hilar activity SUV max 3.0. ??Nonenlarged mediastinal lymph nodes including right paratracheal lymph node SUV max 1.7. Asymmetric activity in the left retropectoral region SUV max 2 either corresponding to nonenlarged lymph nodes or ganglia/vessels. 6 mm nodule versus vessel en face in the right lung SUV Max 1.4. Hiatal hernia. ??Coronary artery calcifications. ABDOMEN/PELVIS: Focal activity in the prostate gland SUV max 23.5. ??Nonenlarged bilateral inguinal lymph nodes SUV max 1.5 on the left and 2.2 on the right. Diverticulosis. ??Left-sided fat-containing inguinal hernia. MUSCULOSKELETAL: No abnormal activity. Procedure Note Ana Griffith MD - 07/26/2024 HISTORY: Prostate carcinoma, initial treatment. PRIOR IMAGING STUDIES: None RADIOPHARMACEUTICAL: 10 mCi F-18 piflufolastat IV INJECTION SITE: Right antecubital INJECTION TIME TO SCAN TIME: 60 min PROCEDURE: Routine body PET-CT imaging performed from the head to the upper thighsand reconstructed in axial, coronal, sagittal planes at the computerworkstation with fused data from both the PET imaging study andattenuation correction CT study. Please note, CT imaging utilized strictlyfor attenuation correction and anatomic localization: CT not designed toproduce and cannot replace rwmzm-oi-wta-art true diagnostic CT examinationwith specific protocols. Standardized uptake values (SUV) normalized topatient body weight and indicate the highest active concentration (SUVmax) in a given disease site. DLP: 568 mGy-cm IMAGING FINDINGS: Reference Values SUV Max: Parotid: 13.4 Blood Pool: 2.5 Liver: 7.9 Expected pattern of physiological activity noted. HEAD AND NECK: Focal activity in the left lower neck SUV max 2.6 which maycorrespond to a 6 mm lymph node versus vessel/ganglion. Fluid level in the right maxillary sinus without significant activity. THORAX: Nonspecific right hilar activity SUV max 3.0. Nonenlargedmediastinal lymph nodes including right paratracheal lymph node SUV max1.7. Asymmetric activity in the left retropectoral region SUV max 2 eithercorresponding to nonenlarged lymph nodes or ganglia/vessels. 6 mm nodule versus vessel en face in the right lung SUV Max 1.4. Hiatal hernia. Coronary artery calcifications. ABDOMEN/PELVIS: Focal activity in the prostate gland SUV max 23.5.Nonenlarged bilateral inguinal lymph nodes SUV max 1.5 on the left and 2.2on the right. Diverticulosis. Left-sided fat-containing inguinal hernia. MUSCULOSKELETAL: No abnormal activity. IMPRESSION: 1. Focal activity within the prostate gland in keeping with prostatecarcinoma 2. Nonspecific activity within the left lower neck, right hilar regionand left retropectoral region which may correspond to nonenlarged lymphnodes/vessels/ganglia with activity either similar or slightly more thanblood pool. 3. 6 mm pulmonary nodule versus vessel in the right lung withoutsignificant activity. This can be followed. -------- FINAL REPORT -------- Dictated By: Ana Griffith Dictated Date: 07/26/2024 04:53 ET Assigned Physician: Ana Griffith Reviewed and Electronically Signed By: Ana Griffith Signed Date: 07/26/2024 05:16 ET Workstation ID: [id number] Transcribed By: Self Edit Transcribed Date: 07/26/2024 04:53 ET us Jay Jay Dee MD IMG NM PROCEDURES Final Resul t from Last 3 Months Insurance [employer] MEDICARE ADVANTAGE
--- OUTSIDE RECORDS SUMMARY | 2024-08-09 14:35 | XMS_ITS ---
Author Organization [facility] Address [address] [place] [address] Care Team Providers Care Guard Dance Hall Name Role Phone Kyree Johnson MD Primary Care Provider Unavaila Rj Monzon Unavailable [phone] REASON FOR VISIT screening Encounters Encounter Location Date Provider Diagnosis [facility] [address] [place] [phone] 05/04/2024 Rj Robert Plan Of Treatment Next Appt Details Provider Name:Rj Robert , 08/19/2024 09:30:00 AM, [address] [place] [address], [phone], Progress Notes * ZI SORENSONDOB: 0 (74 yo M)Acc No.[id number]:05/04/2024 COLON WITH MAC Patient:?ZI SORENSON Provider:?Rj Robert MD :1950???Age:73 Y???Sex:Male Fran e:05/04/2024 Address:[address] [place], [place] [id number] Pcp:Kyree Johnson MD Subjective: * Chief Complaints: [...] MD Date:? 025 Generated for Tomer herman/Paresh/eTransmitting on:?08/09/2024 02:35 PM EDT
--- OUTSIDE RECORDS SUMMARY | 2024-08-09 14:35 | XMS_ITS | Patient Health Record ---
Author Organization [facility] Address [address] [place] [address] Care Team Providers Care Cinema Operator Name Role Phone Alex PEÑA, Kyree Primary Care Provider Rj Claros Unavailable [phone] Allergies Allergen (clinical drug ingredient) Drug/Non Drug [...] Status Risk Notes Problem Colon cancer screening (526029680) Colon cancer screening (Z12.11) Active confirmed Problem Pre-procedure evaluation check (425527141) Encounter for other preprocedural examination (Z01.818) Active confirmed Vital Signs Blood pressure diastolic 00 mm Hg 01/13/2024 Height 5 ft 7 in in 01/13/2024 Blood pressure systolic 00 mm Hg 01/13/2024 Weight 180 lbs 01/13/2024 BMI 28.19 kg/m2 01/13/2024 Encounters Encounter Location Date Provider Diagnosis [facility] [address] [place] [address] 01/13/2024 Rj Robert Colon cancer screeni ng Z12.11 and Encounter for other preprocedural examination Z01.818 [facility] [address] [place] [address] 03/14/2024 Rj Robert [facility] [address] [place] [address] 05/03/2024 Rj Robert Assessments Encounter Date Diagnosis [...] Provider Name:Rj Robert , 08/19/2024 09:30:00 AM, [address] [place] [address] , [place], [place], [phone], Insurance Providers Payer Name Payer Address Payer Phone Subscriber Number Group Number Insured Name Patient Relationship to Insured Coverage Start Date Coverage End Date [employer] (No Referra l) [address] [address] [place] [address] [id number] JEVON SORENSON Self - patient is the insured Medical (General) History Medical History History ICD Code Denies [place],DM,CVA,Lung disease,renal dise ase Negative colonoscopy in 12/17 14 at [facility] other than a hyperplastic polyp that was removed Hyperlipidemia Surgical History Surgery Date(Month/Year) tonsillectomy
--- OUTSIDE RECORDS SUMMARY | 2024-08-09 14:35 | XMS_ITS ---
Author Organization [facility] Address [address] [place] [address] Care Team Providers Care Director Of Early Childhood Education Name Role Phone Kyree Johnson MD Primary Care Provider Unavaila Rj Monzon Unavailable [phone] REASON FOR VISIT Prostate test/ waiting on pt call back Encounters Encounter Location Date Provider Diagnosis [facility] [address] [place] [phone] 05/03/2024 Rj Robert Plan Of Treatment Next Appt Details Provider Name:Rj Robert , 08/19/2024 09:30:00 AM, [address] [place] [address] , [place], [place], [phone], Progress Notes * ZI SORENSONDOB: 0 (73 yo M)Acc No.[id number]:05/03/2024 Patient:?ZI SORENSON :1950???Age:73 Y???Sex:Male Address:[address] [place] [address] * true * Date:? Generated for Printi virgil/Paresh/eTransmitting on:?08/09/2024 02:35 PM EDT
== END 2024-08-09 16:05 | disposition home or self-care (01) ==
LOC: HO.HUSH 13:31
PROVIDERS: PCP Internal Medicine; Visit Provider Urology
DX: C61 Malignant neoplasm of prostate (principal); Z19.1 Hormone sensitive malignancy status
CPT/HCPCS: 99214; G2211

== ENCOUNTER → 2024-08-09 13:31 | Outpatient (BNVA) | payer MEDICARE, SELFPAY | PROVIDERS: PCP Internal Medicine; Visit Provider Urology ==

== ENCOUNTER 2024-08-19 08:04 | Day surgery (SDC) | payer MEDICARE, SELFPAY ==
[2024-05-02 13:52] VITALS: BMI 28.2
--- NOTE | 2024-05-03 08:31 | HO.ANESPROP2 ---
HPI - Anesthesia Eval Consult details Narrative: 73yo M for Colonoscopy PMFSH Active Problems Active Problems: All Active Problems Prostatitis (Acute) Urinary frequency (Acute) Elevated PSA (Acute) Preop exam for internal medicine (Acute) COVID-19 (Acute) Cough (Acute) Physical exam (Acute) Hyperlipidemia (Acute) Past Medical History Medical History Hyperlipidemia Family History Family History Father No problems noted. Mother Esophageal cancer Brother Past heart attack Surgical History Surgical History H/O thyroglossal duct cyst History of foot surgery Social History Social History (Updated 05/02/24 @ 13:53 by Maddi Maradiaga RN) Housing: House Alcohol intake: current Alcohol intake frequency: a few times a week Patient Tobacco Use Status: Never used Tobacco Tobacco use type: Cigarette e-Cigarette/Vaping Use: Never Used Second Hand Smoke Exposure: No service: No Current occupational status: retired Cognitive needs: No Hearing needs: Yes (hearing aide) Vision needs: Yes (glasses) Meds Allergies Allergy/AdvReac Type Severity Reaction Status Date / Time penicillin V Allergy Unknown Rash Verified 03/03/24 15:14 Exam Height,Weight and Vital Signs: Height 5 ft 7 in Weight 81.647 kg Assessment and Plan Assessment Anesthesia Assessment: Chart Reviewed
--- NOTE | 2024-08-18 09:57 | P.CONAN_ITS ---
Documented by User: Susy Ahmadi NP 08/18/24 09:58 HPI - Anesthesia Eval Consult details Narrative: 74yo M for Colonoscopy PMFSH Active Problems Active Problems: All Active Problems Hormone sensitive prostate cancer (Acute) Prostatitis (Acute) Urinary frequency (Acute) Elevated PSA (Acute) Preop exam for internal medicine (Acute) COVID-19 (Acute) Cough (Acute) Physical exam (Acute) Hyperlipidemia (Acute) Past Medical History Medical History (Updated 07/05/24 @ 15:24 by Jay Jay Dee MD) Hyperlipidemia Family History Family History Father No problems noted. Mother Esophageal cancer Brother Past heart attack Surgical History Surgical History (Updated 08/19/24 @ 08:29 by Malina Batista RN) H/O colonoscopy H/O thyroglossal duct cyst History of foot surgery Social History Social History Housing: House Are you a primary patient care technician instructor to a significant other at home: No Do you presently have visiting nurse or other home services: No Alcohol intake: current Alcohol intake frequency: 3 or more drinks per day Comment: very infrequent Patient Tobacco Use Status: Never used Tobacco Tobacco use type: Cigarette e-Cigarette/Vaping Use: Never Used Second Hand Smoke Exposure: No Use of substances other than those prescribed or required for medical reasons: No Have you been hit, kicked, punched, or otherwise hurt by someone within the past year? If so, by whom?: No Are you DNR?: No Advance Directives: No Advance Directives Information Provided: No Advance Directives on File: No Poor oral hygiene: No service: No Current occupational status: retired Cognitive needs: No Hearing needs: Yes (hearing aide) Vision needs: Yes (glasses) Meds Allergies Allergy/AdvReac Type Severity Reaction Status Date / Time penicillin V Allergy Unknown Rash Verified 08/09/24 13:32 Home Medications ?Medication ?Instructions ?Recorded ?Confirmed ?Last Taken ?Type prednisone 20 mg tablet 20 mg PO BID 08/19/24 08/19/24 Unknown History Exam Height,Weight and Vital Signs: Height 5 ft 7 in Weight 81.647 kg Assessment and Plan Assessment Anesthesia Assessment: Chart Reviewed Documented by User: Savannah Roberts MD 08/19/24 09:23 [facility] Past Medical History Medical History (Updated 07/05/24 @ 15:24 by Jay Jay Dee MD) Hyperlipidemia Family History Family History Father No problems noted. Mother Esophageal cancer Brother Past heart attack Family history of problems with anesthesia: No Surgical History Surgical History (Updated 08/19/24 @ 08:29 by Malina Batista RN) H/O colonoscopy H/O thyroglossal duct cyst History of foot surgery History of Problems with Anesthesia: No Social History Social History Housing: House Are you a primary patient care technician instructor to a significant other at home: No Do you presently have visiting nurse or other home services: No Alcohol intake: current Alcohol intake frequency: 3 or more drinks per day Comment: very infrequent Patient Tobacco Use Status: Never used Tobacco Tobacco use type: Cigarette e-Cigarette/Vaping Use: Never Used Second Hand Smoke Exposure: No Use of substances other than those prescribed or required for medical reasons: No Have you been hit, kicked, punched, or otherwise hurt by someone within the past year? If so, by whom?: No Are you DNR?: No Advance Directives: No Advance Directives Information Provided: No Advance Directives on File: No Poor oral hygiene: No service: No Current occupational status: retired Cognitive needs: No Hearing needs: Yes (hearing aide) Vision needs: Yes (glasses) Meds Allergies Allergy/AdvReac Type Severity Reaction Status Date / Time penicillin V Allergy Unknown Rash Verified 08/09/24 13:32 Home Medications ?Medication ?Instructions ?Recorded ?Confirmed ?Last Taken ?Type prednisone 20 mg tablet 20 mg PO BID 08/19/24 08/19/24 Unknown History Exam Airway Mallampati Class: III TM Dist: >3cm Neck ROM: Full Assessment and Plan Assessment Anesthesia Assessment: Anesthesia Plan Discussed Final Anesthetic Review Family History of Problems with Anesthesia: No History of Problems with Anesthesia: No NPO: Yes ASA Class: III Final Preanesthetic Review: No Changes in Pt Med Stat, Meds/Allgs Chart Reviewed, Consent Obtained/Reviewed and Anes Risks/Benef Reviewed Patient Risk: Intermediate Procedure Risk: Low Anesthetic Plan Anesthetic Plan: TIVA Disposition: Standard PACU
[2024-08-19 08:20] VITALS: BP 156/101; PULSE 94; RESP 16; TEMP 36.2; O2SAT 98; BMI 26.5
[2024-08-19] MEDS: Lactated Ringers 1,000 ML 100 ML IVCONT (08:41)
[2024-08-19 10:36] VITALS: BP 105/67; PULSE 76; RESP 16; TEMP 36.6; O2SAT 96
--- NOTE | 2024-08-19 10:37 | PM.OP ---
Brief Operative Note Date of Service: 08/19/24 Pre-op diagnosis: Screening Post-op diagnosis: other (Diverticulosis) Procedure: Colonoscopy to cecum Surgeon: Rj Robert MD Anesthesia: MAC Was an Conference Services Director used for this Procedure?: No Estimated blood loss (mL): 0 Pathology: none sent Condition: stable Disposition: PACU
[2024-08-19 10:50] VITALS: BP 143/93; PULSE 81; RESP 16; TEMP 36.6; O2SAT 96
--- NOTE | 2024-08-19 20:56 | OP_ITS ---
DATE OF SERVICE: 08/19/2024 SURGEON: Rj Robert MD INDICATIONS: The patient presents for evaluation of colorectal cancer screening. Full consent was obtained from him for this, including risks of bleeding and perforation. PREOPERATIVE DIAGNOSIS: Colorectal cancer screening. POSTOPERATIVE DIAGNOSIS: PROCEDURE PERFORMED: Colonoscopy to cecum. ESTIMATED BLOOD LOSS: COMPLICATIONS: ANESTHESIA: Monitored anesthesia care. ASSISTANTS: SPECIMENS: POSTOPERATIVE DIAGNOSES: Colorectal cancer screening, diverticulosis, and internal hemorrhoids. DESCRIPTION OF PROCEDURE: The patient was placed in the left lateral decubitus position. The digital rectal exam revealed no abnormalities. The Olympus video pediatric colonoscope was entered into the rectum and advanced easily to the cecum. Once in the cecum, I did identify normal-appearing cecal pouch with appendiceal orifice, a normal-appearing ileocecal valve. The entire cecum and ileocecal valve appeared normal. The scope was slowly withdrawn assessing all mucosal surfaces carefully. Preparation was excellent. I did not visualize any sign of polyps, colitis, nor angiodysplasia. There was a mild amount of sigmoid diverticulosis. In the rectum, scope was retroflexed visualizing internal hemorrhoids, but no other pathology. The rectal mucosa appeared normal. The scope was straightened and withdrawn from the patient. He tolerated the procedure well and was returned to the recovery area in stable condition. IMPRESSION: 1. Diverticulosis. 2. Internal hemorrhoids. PLAN: Given his age and today's negative exam, I do not think he will need any further screening colonoscopies. He will otherwise see me on a p.r.n. basis. This has been discussed with his daughter. Rj Robert MD RMW/MODL / [id number]
== END 2024-08-19 11:17 | disposition home or self-care (01) ==
PROVIDERS: PCP Internal Medicine; Visit Provider Internal Medicine
PROC: 0DJD8ZZ Inspection of Lower Intestinal Tract, Via Natural or Artificial Opening Endoscopic (ICD-10-PCS; CPT 45378; principal; 2024-08-19 09:30)
DX: Z12.11 Encounter for screening for malignant neoplasm of colon (principal); K57.30 Diverticulosis of large intestine without perforation or abscess without bleeding; K64.8 Other hemorrhoids; E78.5 Hyperlipidemia, unspecified; Z80.0 Family history of malignant neoplasm of digestive organs; Z79.899 Other long term (current) drug therapy; Z88.0 Allergy status to penicillin
CPT/HCPCS: G0121; J2704

== ENCOUNTER → 2024-08-24 10:00 | Outpatient (BNV) | payer MEDICARE, SELFPAY | PROVIDERS: PCP Internal Medicine; Visit Provider Radiology Diagnostic Radiology | DX: C61 Malignant neoplasm of prostate (principal) | CPT/HCPCS: 72197 ==

== ENCOUNTER 2024-08-24 10:26 | Outpatient (REF) | payer MEDICARE, SELFPAY ==
--- NOTE | ~2024-08-24 | MR_ITS ---
EXAMINATION: MR PROSTATE WITHOUT THEN WITH IV CONTRAST HISTORY: C61 - Malignant neoplasm of prostate TECHNIQUE: 1.5T body coil survey of the pelvis was performed. Phase array coil imaging of the prostate was performed in multiplanar high resolution axial, coronal, sagittal fast spin echo T2 and axial T1 weighted imaging sequences. Axial diffusion imaging at intermediate and high field performed with ADC mapping. Next, mL Gadavist was given by intravenous infusion, and dynamic axial imaging performed. COMPARISON: There are no prior studies for comparison. CLINICAL DATA: Most recent PSA: 10.47 ng/mL on 05/02/2024 PSA Density: 0.29 ng/mL squared Prostate Biopsy: Positive biopsy on 05/12/2024 with a Chandler score 4+5 = 9. FINDINGS: Prostate size: 5.1 x 4.3 x 3.2 cm. Calculated prostate volume is 36.5 mL. Hemorrhage: None. Transitional Zone: There is moderate heterogeneous nodular hypertrophy of the transitional zone. Peripheral Zone: There is an area of interest in the peripheral zone bilaterally, greater on the right. This measures at least 2.2 cm in size and extends from the mid gland to the apex. Abnormal signal intensity surrounds the urethra. Area of interest #1: Location: Right and left posterior peripheral zones in the mid gland extending to involve the right side of the prostate at the apex and surrounding the urethra on both sides. DWI PI-RADS v2.1 score: 5 T2 PI-RADS v2.1 score: 5 DCE PI-RADS v2.1 score: + Overall PI-RADS v2.1 score: 5 Capsular contact: yes Extracapsular extension: There is spiculation of the periprostatic fat posteriorly on the right (series 8, image 23) which is highly suspicious for extracapsular extension. Seminal vesicle invasion: The seminal vesicles demonstrate decreased T2 signal intensity but definite restricted diffusion is not seen. Neurovascular bundle involvement: Equivocal Pelvic Lymph Nodes: No obturator or internal iliac lymph nodes meeting size criteria for adenopathy. Marrow Signal: There is asymmetric enhancement of the pubic symphysis, greatest on the right with associated restricted diffusion. Metastatic disease in this location is not excluded. MR/MR Prostate wo/w con IMPRESSION: 1. Large area of abnormal signal intensity involving the right and left posterior peripheral zones in the mid gland extending to involve the right side of the prostate at the apex, and surrounding the urethra on both sides, highly suspicious for clinically significant prostate carcinoma. 2. Spiculation of the periprosthetic fat posteriorly on the right which is highly suspicious for extracapsular extension. 3. Asymmetric enhancement of the pubic symphysis with associated restricted diffusion, right greater than left. Metastatic disease is not excluded. Bone scan is suggested for further evaluation. PI-RADS 5: Very high (clinically significant cancer is highly likely to be present) PI-RADS Assessment Categories PI-RADS 1: Very low (clinically significant cancer is highly unlikely to be present) PI-RADS 2: Low (clinically significant cancer is unlikely to be present) PI-RADS 3: Intermediate (the presence of clinically significant cancer is equivocal) PI-RADS 4: High (clinically significant cancer is likely to be present) PI-RADS 5: Very high (clinically significant cancer is highly likely to be present) [employer]. MR Prostate Imaging Reporting and Data System version 2.1. [email or web address] Electronically signed by: Rj Evans MD 08/24/2024 01:03 PM EDT RP
[2024-08-24] MEDS: gadobutroL 10 ML VIAL IVPUSH (11:26)
--- OUTSIDE RECORDS SUMMARY | 2024-08-24 11:27 | XMS_ITS ---
Author Organization [facility] Address [address] [place] [address] Care Team Providers Care Butt Maker Name Role Phone Kyree Johnson MD Primary Care Provider Unavaila Rj Monzon Unavailable [phone] REASON FOR VISIT screening Encounters Encounter Location Date Provider Diagnosis [facility] [place] [address] [place], [place] [phone] 08/19/2024 Rj Robert Plan Of Treatment No Information Progress Notes * ZI SORENSONDOB: 0 (74 yo M)Acc No.[id number]:08/19/2024 COLON WITH MAC Patient:?ZI SORENSON Provider:?Rj Robert MD :1950???Age:74 Y???Sex:Male Fran e:08/19/2024 Address:[address] [place], [place] [phone] Pcp:Kyree Johnson MD Subjective: * Chief Complaints: [...] MD Date:? 025 Generated for Tomer herman/Paresh/eTransmitting on:?08/24/2024 11:27 AM EDT
== END 2024-08-24 10:27 | disposition home or self-care (01) ==
LOC: HO.MRI 10:26
PROVIDERS: PCP Internal Medicine; Visit Provider Urology
DX: C61 Malignant neoplasm of prostate (principal); Z19.1 Hormone sensitive malignancy status
CPT/HCPCS: 72197; A9585

== ENCOUNTER 2024-09-06 16:11 | Outpatient (AMB) | payer MEDICARE, SELFPAY ==
[2024-09-06 16:14] VITALS: BP 136/90; PULSE 70; RESP 18; TEMP 36.6; O2SAT 96; BMI 27.3
--- NOTE | 2024-09-06 16:17 | A.OFFPC_ITS ---
Vital Signs 09/06/24 16:14 09/06/24 17:17 09/06/24 17:17 Height 5 ft 7 in Weight 174 lb 9.6 oz BMI 27.3 BP 136/90 H 166/98 H 162/94 H Blood Pressure Location Lt brachial Lt brachial Lt brachial Position Sitting Sitting Sitting Respiration 18 Pulse 70 Pulse Source Pulse Oximeter Temp 97.9 F Temp Source Oral Pulse Oximetry (%) 96 Oxygen Delivery Method Room Air Intake Visit Reasons: Hypertension Vacuum Filter Operator Required: No Accompanied by: Self / Same As Patient Allergies penicillin V Allergy (Unknown, Verified 09/06/24 16:34) Rash Medication List - Last Reconciled 09/06/24 by VICK Meyer bicalutamide 50 mg PO TID 30 days clotrimazole-betamethasone 1-0.05 % 1 appl topical BID 2 weeks epinephrine (EpiPen 2-Nate) 0.3 mg (0.3 mL) IM Q10M PRN hydroxyzine pamoate 25 mg PO QID PRN prednisone 20 mg PO BID simvastatin 20 mg PO DAILY Tobacco use date assessed: 09/06/24 Fall risk assessment: 2 + Falls in past year Last assessed Fall Risk: 09/06/24 Dental Screening Dental Screen Date: 09/06/24 Did you have a dental visit in the last 12 months?: No Did you have a dental problem in the last 6 months where you did not have access to dental care?: No Was dental information given to patient?: Patient has dentist HPI Hypertension HPI Details The patient is a 74-year-old male. Patient of Dr. Johnson who retired recently. The patient will transition care to Dr. Dozier on 11/09/2024. Here today to be evaluated for hypertension Reports that a nurse practitioner came to his house and told him that his blood pressure was high Blood pressure elevated in office Rechecked blood pressure is 166/98 in left arm, then 162/94, denies chest pain, sob, lightheaded. Reports fallen couple times last year, fell on eastern, then a week later he fell again in the garage. Reports that he does not know why he felt, suspecting that he tripped. Reports drinking coffee 1 cup a day in the mornings, denies a high salt-intake. Reports drinking at least 3 beers a day. As for fluids, he reports 2-3 bottles of water a day Prostate cancer; reports that this cause to urinate hourly when he drinks plenty of liquids. Denies burning sensation. Reports having a PET scan couple months ago and they said that his cancer was localized. MRI last week, but has not gotten the results of this as yet. PET scan was at [facility] and the MRI was at [facility] Rechecked blood pressure is 166/98 in left arm, denies chest pain, sob, lightheaded. Reports that had fallen couple times last year, fell on eastern, then a week later he fell again in the garage. Reports that he does not know why he felt, suspecting that he tripped. Reports drinking coffee 1 cup a day in the mornings, denies a high salt-intake. Reports drinking at least 3 beers a day. Constipation: reports constipation sometimes, attributed it to medications, he has been taking prednisone every day for ezcema and psoriasis. states that he never had constipation until he started this medication. He is currently having a bowel movement every other day since he had the colonoscopy couple of weeks ago; his constipation was prolonging into every couple of days before. denies blood in the stool. And he was reassured after his colonoscopy that everything is fine. Reports seeing his bakery sales clerk at least once a month.NE bakery sales clerk, Dr. Jameson, in [facility] Heartburn once in a while depending on what eats-reports that this is not a problem because it is very infrequent [facility] Medical History Hyperlipidemia Surgical History Hx of cataract removal with insertion of prosthetic lens H/O colonoscopy H/O thyroglossal duct cyst History of foot surgery Family History Father No problems noted. Mother Esophageal cancer Brother Past heart attack Social History Housing: House Are you a primary healthcare technician to a significant other at home: No Do you presently have visiting nurse or other home services: No Alcohol intake: current Alcohol intake frequency: 3 or more drinks per day Comment: very infrequent Patient Tobacco Use Status: Never used Tobacco Tobacco use type: Cigarette e-Cigarette/Vaping Use: Never Used Second Hand Smoke Exposure: No service: No Current occupational status: retired Cognitive needs: No Hearing needs: Yes (hearing aid) Vision needs: No Questionnaire Thrive Questionnaire Date Thrive assessed: 09/06/24 I am a: Patient What is your living situation today?: I have a steady place to live Within the past 12 months, did the food you bought not last and you didn't have the money to get more?: Never true Within the past 12 months, did you worry whether your food would run out before you got money to buy more?: Never true Do you have trouble paying for medicines?: No Do you have trouble getting transportation to medical appointments?: No Do you have trouble paying your heating and electricity bill?: No Do you have trouble taking care of your child, family member or friend?: No Do you have trouble with day-to-day activities such as bathing, preparing meals, shopping, managing finances, etc.?: No Are you currently unemployed and looking for a job?: No Are you interested in more education?: No Please select the resources that you would like help with: None Currently or been in a relationship where the following occur: No concerns reported THRIVE Score: 0 AUDIT C Alcohol Use Questionnaire (AUDIT-C) 1. How often do you have a drink containing alcohol?: 4 or more times a week 2. How many drinks containing alcohol do you have on a typical day when you are drinking?: 3 or 4 3. How often do you have six or more drinks on one occasion?: Less than monthly Total Score: 6 Score Reviewed/Action Taken: Yes SALIMA-7 AMB Questionnaire SALIMA-7 Date SALIMA - 7 assessed: 05/11/24 Source: Developed by Drs. Rj Blair, Monica Nicolas, Lavon Contreras and colleagues, with an educational joey from [employer]. Review of Systems Const Denies headache(s) Eyes Denies loss of vision ENT Denies vertigo, Denies dizziness, Denies headache(s) and Denies sore throat Card Denies chest pain, Denies leg edema and Denies lightheadedness Resp Denies cough, Denies hemoptysis and Denies wheezing GI Denies abdominal pain, Denies melena, Reports constipation (Every other day), Reports heartburn (Infrequently depending on what he eats), Denies diarrhea and Denies vomiting Denies dysuria, Reports urinary frequency and Denies urinary urgency Musc Denies arthralgias, Denies joint swelling, Denies numbness and Denies tingling Neuro Denies Abnormal speech present, Denies vertigo, Denies dizziness, Denies headache(s), Denies loss of vision, Denies numbness and Denies tingling Aller/Immun Denies wheezing Physical exam (Primary Care) Vital Signs: Last Vital Signs Temp 97.9 F 09/06/24 16:14 Pulse 70 09/06/24 16:14 Resp 18 09/06/24 16:14 BP 136/90 H 09/06/24 16:14 Pulse Ox 96 09/06/24 16:14 Oxygen Delivery Method Room Air 09/06/24 16:14 BMI result Body Mass Index 27.3 Tobacco/Smoking Status: Tobacco use Status Tobacco use date assessed 09/06/24 09/06/24 16:29 Patient Tobacco Use Status Never used Tobacco 09/06/24 16:29 Tobacco use type Cigarette 09/06/24 16:29 e-Cigarette/Vaping Use Never Used 09/06/24 16:29 Thrive Assessment: Date of Thrive Assessment Date Thrive assessed 09/06/24 09/06/24 16:29 Currently or been in a relationship where the following occur: No concerns reported Const General: healthy appearing, no acute distress, alert and awake Nutritional Appearance: well nourished Orientation/consciousness: oriented to person, oriented to place and oriented to time [facility] Ears: external ears normal General nose exam: Normal external nose present Eyes Conjunctivae: conjunctivae normal Sclerae: sclerae normal Pupils: Equal, round and reactive pupils present Neck Neck: Yes no lymphadenopathy and Yes no JVD Thyroid: Thyroid normal Carotids: no bruits Resp Effort & Inspection: normal respiratory effort and not tachypneic Auscultation: no crackles, no rales, no rhonchi and no wheezes Cardio Rate: regular rate Rhythm: regular rhythm Heart sounds: no murmurs and normal S1 and S2 GI Palpation (GI): Soft to palpation, nontender, no hepatomegaly and no splenomegaly Auscultation: normal bowel sounds Skin General skin exam: dry skin and other (Psoriasis and eczema noted on face and forearms) Neuro General: oriented to person, oriented to place and oriented to time Cranial nerves: Yes Equal, round and reactive pupils present Speech: No Abnormal speech present Gait exam (Neuro): Normal gait present Motor exam (neuro): no tremor noted Extrem Right upper extremity: full ROM Left upper extremity: full ROM Right lower extremity: full ROM; no edema Left lower extremity: full ROM; no edema Psych Mental Status: mental status grossly normal Speech and movement: Normal speech and movement present Affect: normal affect Attitude: cooperative Thought process: Normal thought process present Coding Level of Care Code Est Pt Level 3 (68600) Diagnoses Hypertension, unspecified type I10 Hypertension type: unspecified Constipation, unspecified constipation type K59.00 Constipation type: unspecified constipation type Psoriasis L40.9 Eczema, unspecified type L30.9 Eczema type: unspecified Alcohol abuse F10.10 Time Spent (min) 34 Assessment & Plan Assessment & Plan (1) HTN (hypertension): Code(s): I10 - Essential (primary) hypertension Category: Medical Qualifiers: Hypertension type: unspecified Qualified Code(s): I10 - Essential (primary) hypertension Plan: Blood pressure elevated at 162/94-is systolic goal less than 140 mm hg Encouraged low-sodium diet and to decrease alcohol intake Reports 1 cup of coffee in the mornings, his appointment was 16:30, low to no effect on his blood pressure with so many hours passed Lisinopril 5 mg daily initiated-encouraged to monitor blood pressure at home He is to return in 4 weeks for blood pressure check-nurse visit (2) Constipation: Code(s): K59.00 - Constipation, unspecified Category: Medical Qualifiers: Constipation type: unspecified constipation type Qualified Code(s): K59.00 - Constipation, unspecified Plan: Increase fiber in diet (fruits/vegetables 4-5 servings daily) Increase fluid intake and decrease caffeine/energy drinks (may cause mild dehydration) Encouraged regular exercise -like walking (3) Psoriasis: Code(s): L40.9 - Psoriasis, unspecified Category: Medical Plan: Follow up with Dermatology as scheduled (4) Eczema: Code(s): L30.9 - Dermatitis, unspecified Category: Medical Qualifiers: Eczema type: unspecified Qualified Code(s): L30.9 - Dermatitis, unspecified Plan: He is on a monthly evaluation plan with Dermatology Keep these appointments (5) Alcohol abuse: Code(s): F10.10 - Alcohol abuse, uncomplicated Category: Social Hx Plan: Reports drinking at least 3 beers a day Encouraged the patient to cut down on his drinking Explained that this might be playing a role in his high blood pressure as well Patient verbalized understanding and said it that he will try Orders: Orders Complete Blood Count Auto Diff Today C61 - Malignant neoplasm of prostate, E78.5 - Hyperlipidemia, unspecified, N41.9 - Inflammatory disease of prostate, unspecified, R97.20 - Elevated prostate specific antigen [PSA], Z00.00 - Encounter for general adult medical examination without abnormal findings, Z19.1 - Hormone sensitive malignancy status Comprehensive Protection. Panel Fast Today C61 - Malignant neoplasm of prostate, E78.5 - Hyperlipidemia, unspecified, N41.9 - Inflammatory disease of prostate, unspecified, R97.20 - Elevated prostate specific antigen [PSA], Z00.00 - Encounter for general adult medical examination without abnormal findings, Z19.1 - Hormone sensitive malignancy status TSH reflex Free T4 Today C61 - Malignant neoplasm of prostate, E78.5 - Hyperlipidemia, unspecified, N41.9 - Inflammatory disease of prostate, unspecified, R97.20 - Elevated prostate specific antigen [PSA], Z00.00 - Encounter for general adult medical examination without abnormal findings, Z19.1 - Hormone sensitive malignancy status UA CC w/rflx Micro + Cult Today C61 - Malignant neoplasm of prostate, E78.5 - Hyperlipidemia, unspecified, N41.9 - Inflammatory disease of prostate, unspecified, R97.20 - Elevated prostate specific antigen [PSA], Z00.00 - Encounter for general adult medical examination without abnormal findings, Z19.1 - Hormone sensitive malignancy status Lipid Panel Today C61 - Malignant neoplasm of prostate, E78.5 - Hyperlipidemia, unspecified, N41.9 - Inflammatory disease of prostate, unspecified, R97.20 - Elevated prostate specific antigen [PSA], Z00.00 - Encounter for general adult medical examination without abnormal findings, Z19.1 - Hormone sensitive malignancy status Vitamin D 25-OH Total Today C61 - Malignant neoplasm of prostate, E78.5 - Hyperlipidemia, unspecified, N41.9 - Inflammatory disease of prostate, unspecified, R97.20 - Elevated prostate specific antigen [PSA], Z00.00 - Encounter for general adult medical examination without abnormal findings, Z19.1 - Hormone sensitive malignancy status Medications: New lisinopril 5 mg PO DAILY 30 tabs 3RF
[2024-09-06 17:17] VITALS: BP 162/94; BP 166/98
--- OUTSIDE RECORDS SUMMARY | 2024-09-06 18:54 | XMS_ITS ---
Author Organization [facility] Address [address] [place] [address] Care Team Providers Care Plaster Machine Operator Name Role Phone Kyree Johnson MD Primary Care Provider Unavaila Rj Monzon Unavailable [phone] REASON FOR VISIT screening Encounters Encounter Location Date Provider Diagnosis [facility] [address] [place], [place] [id number] 08/19/2024 Rj Robert Colon cancer scree dominick [...] * ZI SORENSONDOB: 0 (74 yo M)Acc No.[id number]:08/19/2024 COLON WITH MAC Patient:?ZI SORENSON Provider:?Rj Robert MD :1950???Age:74 Y???Sex:Male Fran e:08/19/2024 Address:[address] [place], [place] [id number] Pcp:Kyree Johnson MD Subjective: * Chief Complaints: * ???1. Screening. * Medical History:? Objective: * Vitals:? Assessment: * Assessment: 1.?Colon cancer screening - Z12.11 (Primary)???2.?Diverticulosis of large intestine without perforation or abscess without bleeding - K57.30???3.?Other hemorrhoids - K64.8??? Plan: * Treatment: * Procedure Codes:?G0121 COLOR EC CNCR SCR;COLNSCPY NO HI RSK, 0529F INTRVL 3+YRS PTS CLNSCP DOCD, 0528F RCMND FLW-UP 10 YRS DOCD, Modifiers: 1P * * The named appointment provid er may or may not be the originator of this progress note, and it is not deemed complete until electronically signed by the appointment provider. Sign off status: Pending * Provider:?Rj Robert MD Date:? 025 Generated for Tomer herman/Paresh/Emil on:?09/06/2024 06:54 PM EDT
== END 2024-09-06 17:09 | disposition home or self-care (01) ==
LOC: HO.HMCH 16:12
PROVIDERS: PCP Internal Medicine
DX: I10 Essential (primary) hypertension (principal); K59.00 Constipation, unspecified; L40.9 Psoriasis, unspecified; L30.9 Dermatitis, unspecified; F10.10 Alcohol abuse, uncomplicated

== ENCOUNTER → 2024-09-06 16:11 | Outpatient (BNVA) | payer MEDICARE, SELFPAY | PROVIDERS: PCP Internal Medicine | DX: I10 Essential (primary) hypertension (principal); K59.00 Constipation, unspecified; L40.9 Psoriasis, unspecified; L30.9 Dermatitis, unspecified; F10.10 Alcohol abuse, uncomplicated; C61 Malignant neoplasm of prostate | CPT/HCPCS: 99212 ==

== ENCOUNTER 2024-09-20 09:57 | Outpatient (AMB) | payer MEDICARE, SELFPAY ==
--- OUTSIDE RECORDS SUMMARY | 2024-08-19 05:30 | XMS_ITS ---
Author Organization [facility] Address [address] [place] [address] Care Team Providers Care Scrap Burner Name Role Phone Kyree Johnson MD Primary Care Provider Unavaila Rj Monzon Unavailable [phone] REASON FOR VISIT screening Encounters Encounter Location Date Provider Diagnosis [facility] [place] Outpatient [address] [place], [place] [phone] 08/19/2024 Rj Robert Colon cancer scree dominick [...] * ZI SORENSONDOB: 0 (74 yo M)Acc No.[id number]:08/19/2024 COLON WITH MAC Patient: ZI LAMAS Provider: Jimbo Robert MD :1950 A ge:74 Y S ex:Male Date:08/19/2024 Address:[address] [place], [place] [phone] Pcp:Kyree Johnson MD Subjective: * Chief Complaints: [...] 08/19/2024 Generated for Tomer herman/Paresh/Viviitting on: 0 09/20/2024 10:56 AM EDT
--- NOTE | 2024-09-20 10:14 | MHC.OFFVIS ---
Intake Visit Reasons: MRI Results Intake Note: Patient is present for follow up Prostate MRI Urology Medication:bicalutamide Antibiotic Allergy:PENICILLIN Blood Thinner:NONE Diesel Engine Assembler Required: No Allergies penicillin V Allergy (Unknown, Verified 09/20/24 10:16) Rash HPI Comments Details: Joey is a very pleasant male. He is a patient of Dr. Johnson. He is seen for the following urologic conditions - prostate cancer Discussed staging PET-CT showed disease localized prostate MRI question of extracapsular extension however localized Referral to Radiation Oncology for assessment Will need antiandrogen to be given throughout radiation This will be started at time of seed placement The NCCN Guidelines recommend use of anti-androgen in addition to ADT. Abiraterone can be added to EBRT and 2 years of ADT in patients with ayqu-ozif-exye prostate cancer (Has at least one of the following: ? cT3b?cT4 ? Primary Germain pattern 5 ? 2 or 3 high-risk features ? >4 cores with Grade Group 4 or 5). In the STAMPEDE trial, the hazard ratios for overall survival with the addition of abiraterone to EBRT and ADT in patients with node-negative disease was 0.69 (95% CI, 0.49?0.96) Prostate cancer grade group 5 multi core - localized disease off PET-CT Imaging - 07/22 PET-CT shows localization of disease to prostate, no suspicious note - 09/21 prostate MRI clear PI-RADS 5 lesion, possible extracapsular extension, no suspicious nodes TRUS 40gm Histologic grade: Platina score: 4+5=9 (right base medial), 3+5=8 (left apex lateral), 4+3=7 (right apex medial), 3+4=7 (all other biopsies) % of pattern 4: 20% % of pattern 5: 5% Grade group: 5, 4, 3 and 2 Tumor quantitation: Number cores positive: 12 Total number of cores: 12 % of tissue involved: 70% of all tissue examined Periprostatic fat inv.: Suspicious Seminal vesicle inv.: Not identified Perineural inv.: Present LVI: Not identified PFSH Medical History Hyperlipidemia Surgical History Hx of cataract removal with insertion of prosthetic lens H/O colonoscopy H/O thyroglossal duct cyst History of foot surgery Family History Father No problems noted. Mother Esophageal cancer Brother Past heart attack Social History Housing: House Are you a primary intensive care ambulance paramedic to a significant other at home: No Do you presently have visiting nurse or other home services: No Alcohol intake: current Alcohol intake frequency: 3 or more drinks per day Comment: very infrequent Patient Tobacco Use Status: Never used Tobacco Tobacco use type: Cigarette e-Cigarette/Vaping Use: Never Used Second Hand Smoke Exposure: No service: No Current occupational status: retired Cognitive needs: No Hearing needs: Yes (hearing aid) Vision needs: No Review of Systems Const Denies chills and Denies fever(s) Card Reports no additional complaints and Denies syncope Resp Denies cough GI Denies abdominal pain and Denies heartburn Reports as per HPI and Denies change in libido Neuro Denies syncope Psych Denies change in libido Endo Denies change in libido Physical Exam Const General: cooperative, healthy appearing, comfortable and no acute distress Orientation/consciousness: patient oriented x3 HEENT Face and sinus: Yes normal facial exam Mouth: moist mucous membranes Neck Neck: Yes normal visual inspection, Yes full ROM and Yes trachea midline Chest Chest palpation & inspection: normal inspection of the chest Resp Effort & Inspection: normal respiratory effort, able to speak in complete sentences and no respiratory distress GI Inspection: Yes normal to inspection Back/Spine/Pelvis Cervical Spine: normal cervical lordosis Thoracic/Lumbar Spine: thoracic and lumbar spine normal to inspection Skin General skin exam: no rashes or lesions noted Neuro General: patient oriented x3, gait normal, tone normal and moves all extremities Extrem General: Yes normal to inspection and Yes capillary refill normal Office Meds Eligard (6 month) 45 mg (6 month) subcutaneous syringe Performing Provider: Jay Jay Dee MD [facility] Administered by: Amish Zavaleta LPN on 09/20/24 10:53 Dose Route Admin Location Dispensed Lot Number Expiration Date [facility] [employer] Pump Operator 45 mg subcut right arm 45 mg [id number] 10/28/25 58266-850-56 [id number]. Total Dispensed Waste 45 mg 0 % Assessment & Plan Assessment & Plan (1) Hormone sensitive prostate cancer: Code(s): C61 - Malignant neoplasm of prostate; Z19.1 - Hormone sensitive malignancy status Category: Medical Plan [facility] today Radiation oncology referral [facility] 4 week follow-up marker seed placement Add antiandrogen Orders: Orders AMB Urinalysis Automated Today Z13.9 - Encounter for screening, unspecified AMB Leuprolide Injection - Practice Supplied Today C61 - Malignant neoplasm of prostate, R97.20 - Elevated prostate specific antigen [PSA], Z19.1 - Hormone sensitive malignancy status Referrals Radiation Oncology Referral C61 - Malignant neoplasm of prostate, Z19.1 - Hormone sensitive malignancy status Medications: New levofloxacin take 1 tablet day before procedure, 1 tablet day of procedure and 1 tablet day after procedure 500 mg PO DAILY 3 tabs 0RF 3 days C61 - Malignant neoplasm of prostate, Z19.1 - Hormone sensitive malignancy status abiraterone must be taken on empty stomach, at least 1 hr before or 2 hrs after a meal/food 1,000 mg (4 x 250 mg) PO DAILY 120 tabs 5RF 30 days C61 - Malignant neoplasm of prostate, Z19.1 - Hormone sensitive malignancy status prednisone 2.5 mg PO BID 60 tabs 5RF 30 days C61 - Malignant neoplasm of prostate, Z19.1 - Hormone sensitive malignancy status Patient Instructions: This note is constructed using voice recognition software. While every effort has been made to ensure accuracy cnc machine operator errors may have been included. Imaging studies, laboratory and physical exam results were discussed and reviewed in detail. No major barriers to patient understanding were identified. An opportunity to ask questions regarding the treatment plan was provided. All questions were answered. The patient expressed understanding and agreement with the above treatment plan. The patient is aware they should contact our office by phone for worsening of their current condition or the appearance of new urologic symptoms. Compliance is encouraged with any medications and followup testing that is ordered. It is a privilege to participate in the urologic care of your patient. If you have any questions or concerns regarding treatment for the above conditions, or other urologic issues, please do not hesitate to contact me. The office telephone contact is [phone]. Sincerely, Dr Jay Jay Dee MD, [facility] - Urology Compassionate Specialist Care for the Genitourinary System Coding Level of Care Code Est Pt Level 4 (85544) Complex EM visit Add On G2211 Diagnoses Hormone sensitive prostate cancer C61; Z19.1
== END 2024-09-20 11:14 | disposition home or self-care (01) ==
LOC: HO.HUSH 09:57
PROVIDERS: Visit Provider Urology
DX: R97.20 Elevated prostate specific antigen [PSA] (principal); C61 Malignant neoplasm of prostate; Z19.1 Hormone sensitive malignancy status; Z13.9 Encounter for screening, unspecified
CPT/HCPCS: 99214; G2211

== ENCOUNTER → 2024-09-20 09:57 | Outpatient (BNVA) | payer MEDICARE, SELFPAY | PROVIDERS: Visit Provider Urology | DX: C61 Malignant neoplasm of prostate (principal); E78.5 Hyperlipidemia, unspecified; Z19.1 Hormone sensitive malignancy status | CPT/HCPCS: 81003; 96402; 99212; J9217 ==

== ENCOUNTER 2024-10-03 12:52 | Outpatient (REF) | payer MEDICARE, SELFPAY ==
--- OUTSIDE RECORDS SUMMARY | 2024-08-19 05:30 | XMS_ITS ---
Author Organization [facility] Address [address] [place] [address] Care Team Providers Care Telesales Specialist Name Role Phone Kyree Johnson MD Primary Care Provider Unavaila Rj Monzon Unavailable [phone] REASON FOR VISIT screening Encounters Encounter Location Date Provider Diagnosis [facility] [place] Outpatient [address] [place], [place] [phone] 08/19/2024 Rj Robert Colon cancer scree dominick [...] * ZI SORENSONDOB: 0 (74 yo M)Acc No.[id number]:08/19/2024 COLON WITH MAC Patient: ZI LAMAS Provider: Jimbo Robert MD :1950 A ge:74 Y S ex:Male Date:08/19/2024 Address:[address] [place], [place] [phone] Pcp:Kyree Johnson MD Subjective: * Chief Complaints: [...] 08/19/2024 Generated for Tomer herman/Paresh/Viviitting on: 0 10/03/2024 01:20 PM EDT
[2024-10-03 13:10] LABS: MANUAL DIFF FLAG NO
--- OUTSIDE RECORDS SUMMARY | 2024-10-03 13:21 | XMS_ITS | Clinical Summary ---
Author Organization [facility] Address [address] [place] [address] Phone Care Team Providers Care Core Loader Name Role Phone Unavailable Primary Care Provider Unavailabl e Encounters Date Type Department Care Team Description 07/20/2024 3:14 PM EDT - 07/20/2024 11:59 PM EDT Hospital Encounter [facility] PET Scan [address] [place] [address] Prostate cancer (CMS/HCC V24, CMS/HCC [...] Routine 07/20/2024 5:10 PM EDT Prostate cancer ([facility] V24, [facility] V28) from Last 3 Months Results * PET CT Skull to Mid Thigh Initial (07/20/2024 5:10 PM EDT) Anatomical Region Laterality Modality Body Radiographic Nathalia ging 07/26/2024 4:53 AM EDT Impressions 07/26/2024 5:16 AM EDT 1. Focal activity within the prostate gland in keeping with prostate carcinoma 2. Nonspecific activity within the left lower neck, right hilar region and left retropectoral region which may correspond to nonenlarged lymph nodes/vessels/ganglia with activity either similar or slightly more than blood pool. 3. 6 mm pulmonary nodule versus vessel in the right lung without significant activity. This can be followed. -------- FINAL REPORT -------- Dictated By: Ana Griffith Dictated Date: 07/26/2024 04:53 ET Assigned Physician: Ana Griffith Reviewed and Electronically Signed By: Ana Griffith Signed Date: 07/26/2024 05:16 ET Workstation ID: [id number] Transcribed By: Self Edit Transcribed Date: 07/26/2024 [...] not designed to produce and cannot replace xcaus-au-yio-art true diagnostic CT examination with specific protocols. Standardized uptake values (SUV) normalized to patient body weight and indicate the highest active concentration (SUV max) in a given disease site. DLP: 568 [...] Nonspecific right hilar activity SUV max 3.0. Nonenlarged mediastinal lymph nodes including right paratracheal lymph node SUV max 1.7. Asymmetric activity in the left retropectoral region SUV max 2 either corresponding to nonenlarged lymph nodes or ganglia/vessels. 6 mm nodule versus vessel en face in the right lung SUV Max 1.4. Hiatal hernia. Coronary artery calcifications. ABDOMEN/PELVIS: Focal activity in the prostate gland SUV max 23.5. Nonenlarged bilateral inguinal lymph nodes SUV max 1.5 on the left and 2.2 on the right. Diverticulosis. Left-sided fat-containing inguinal hernia. [...] CT not designed toproduce and cannot replace nksbj-ic-qzi-art true diagnostic CT examinationwith specific protocols. Standardized [...] Signed Date: 07/26/2024 05:16 ET Workstation ID: [id number] Transcribed By: Self Edit Transcribed Date: 07/26/2024 04:53 ET Jay Jay Dee MD IMCarter [place] PROCEDURES Final Resul t from Last 3 Months Insurance [employer] MEDICARE ADVANTAGE
[2024-10-03 13:43] LABS: Hematocrit 36.7 % (42.0-52.0); Hemoglobin 12.8 g/dl (14.0-18.0); Imm Gran Abs Auto 0.02 X10*3/uL (0.00-0.03); Imm Gran Pct Auto 0.3 % (0.0-0.4); Lymphocytes Absolute Auto 1.5 X10*3/uL (1.2-4.9); Mean Corpuscular HGB Conc 34.9 g/dl (31.0-36.0); Mean Corpuscular Hemoglobin 36.2 pg (27.0-33.0); Mean Corpuscular Volume 103.7 fL (80.0-98.0); NRBC Abs Auto 0.000 X10*3/uL (0.0-0.012); NRBC Pct Auto 0.0 /100WBC (0.0-0.2); Platelet Count 193 X10*3/uL (160-400); Red Blood Count 3.54 X10*6/uL (4.60-5.80); White Blood Count 6.0 X10*3/uL (4.8-10.8)
[2024-10-03 14:57] LABS: Anion Gap 14 (12-20)
[2024-10-03 15:02] LABS: Alanine Aminotransferase 17 U/L (0-40); Albumin Level 4.5 g/dL (3.5-5.0); Alkaline Phosphatase 50 U/L (39-117); Aspartate Amino Transferase 28 U/L (5-37); Blood Urea Nitrogen 9 mg/dL (9-16); Calcium 8.5 mg/dL (8.4-10.2); Carbon Dioxide 22 mmol/L (22-29); Chloride 105 mmol/L (96-108); Cholesterol 181 mg/dL (<200); Estimated Glomerular Filt Rate > 60; HDL Cholesterol 86 mg/dL (>40); Potassium 4.1 mmol/L (3.3-5.1); Sodium 137 mmol/L (135-145); Total Protein 6.6 g/dL (6.5-8.0); Triglycerides 55 mg/dL (<150)
[2024-10-03 16:33] LABS: Appearance Urine Clear; Glucose Urine UA Negative (Negative); PH 6.0 (5.0-9.0); Specific Gravity - Urine 1.010 (1.005-1.025)
== END 2024-10-03 12:53 | disposition home or self-care (01) ==
LOC: HO.LAB 12:52
PROVIDERS: PCP Internal Medicine
DX: Z00.00 Encounter for general adult medical examination without abnormal findings (principal); C61 Malignant neoplasm of prostate; Z19.1 Hormone sensitive malignancy status; N41.9 Inflammatory disease of prostate, unspecified; R97.20 Elevated prostate specific antigen [PSA]; E78.5 Hyperlipidemia, unspecified
CPT/HCPCS: 36415; 80053; 80061; 81003; 82306; 84443; 85025

== ENCOUNTER 2024-10-04 11:06 | Outpatient (AMB) | payer MEDICARE, SELFPAY ==
--- OUTSIDE RECORDS SUMMARY | 2024-08-19 05:30 | XMS_ITS ---
Author Organization [facility] Address [address] [place] [address] Care Team Providers Care Oracle Database Administrator Name Role Phone Kyree Johnson MD Primary Care Provider Unavaila Rj Monzon Unavailable [phone] REASON FOR VISIT screening Encounters Encounter Location Date Provider Diagnosis [facility] Out[place] [address] [place], [place] [phone] 08/19/2024 Rj Robert Colon cancer scree dominick [...] * ZI SORENSONDOB: 0 (74 yo M)Acc No.[id number]:08/19/2024 COLON WITH MAC Patient: ZI LAMAS Provider: Jimbo Robert MD :1950 A ge:74 Y S ex:Male Date:08/19/2024 Address:[address] [place], [place] [phone] Pcp:Kyree Johnson MD Subjective: * Chief Complaints: [...] 0 08/19/2024 Generated for Tomer herman/Paresh/Viviitting on: 0 10/04/2024 12:12 PM EDT
[2024-10-04 11:10] VITALS: BP 150/86; PULSE 67; O2SAT 97; BMI 26.8
--- NOTE | 2024-10-04 11:10 | A.OFFPC_ITS ---
Vital Signs 10/04/24 11:10 Height 5 ft 7 in Weight 171 lb BMI 26.8 BP 150/86 H Blood Pressure Location Lt brachial Position Sitting Pulse 67 Pulse Source Pulse Oximeter Pulse Oximetry (%) 97 Oxygen Delivery Method Room Air Intake Visit Reasons: 4 Weeks Equalizer Operator Required: No Accompanied by: Self / Same As Patient Allergies penicillin V Allergy (Unknown, Verified 10/04/24 11:44) Rash Medication List - Last Reconciled 10/04/24 by Kimani Dozier MD abiraterone 1,000 mg (4 x 250 mg) PO DAILY 30 days bicalutamide 50 mg PO TID 30 days clotrimazole-betamethasone 1-0.05 % 1 appl topical BID 2 weeks epinephrine (EpiPen 2-Nate) 0.3 mg (0.3 mL) IM Q10M PRN lisinopril 5 mg PO DAILY simvastatin 20 mg PO DAILY Tobacco use date assessed: 10/04/24 Fall risk assessment: 2 + Falls in past year Last assessed Fall Risk: 10/04/24 Dental Screening Dental Screen Date: 10/04/24 Did you have a dental visit in the last 12 months?: No Did you have a dental problem in the last 6 months where you did not have access to dental care?: No Was dental information given to patient?: No HPI 4 Weeks 2 HPI Details Patient comes in today for his follow up visit States that he feels okay States that he has been tolerating the Lisinopril 5 mg that he was started on about a month ago and that his blood pressure seems to have improved somewhat since He denies any recent headaches or dizziness Denies any chest pains, no increased SOB No nausea/vomiting, no abdominal pain No change in bowel habits noted He had his follow up labs done yesterday - to discuss his results [facility] Medical History (Updated 10/09/24 @ 22:42 by Kimani Dozier MD) Vitamin D deficiency Hormone sensitive prostate cancer Overweight (BMI 25.0-29.9) Pure hypercholesterolemia Essential hypertension Hyperlipidemia Surgical History Hx of cataract removal with insertion of prosthetic lens H/O colonoscopy H/O thyroglossal duct cyst History of foot surgery Family History Father No problems noted. Mother Esophageal cancer Brother Past heart attack Social History Housing: House Are you a primary palliative care nurse to a significant other at home: No Do you presently have visiting nurse or other home services: No Alcohol intake: current Alcohol intake frequency: 3 or more drinks per day Comment: very infrequent Patient Tobacco Use Status: Never used Tobacco Tobacco use type: Cigarette e-Cigarette/Vaping Use: Never Used Second Hand Smoke Exposure: No service: No Current occupational status: retired Cognitive needs: No Hearing needs: Yes (hearing aid) Vision needs: No Questionnaire PHQ-9 Over the last 2 weeks, how often have you been bothered by any of the following problems? 1. Little interest or pleasure in doing things: several days 2. Feeling down, depressed, or hopeless: not at all 3. Trouble falling or staying asleep, or sleeping too much: more than half the days 4. Feeling tired or having little energy: more than half the days 5. Poor appetite or overeating: not at all 6. Feeling bad about yourself - or that you are a failure or have let yourself or your family down: not at all 7. Trouble concentrating on things, such as reading the newspaper or watching television: not at all 8. Moving or speaking so slowly that other people could have noticed. Or the opposite - being so fidgety or restless that you have been moving around a lot more than usual: not at all 9. Thoughts that you would be better off or of hurting yourself in some way: not at all Total score: 5 Depression Screening Interpretation: Positive Depression Screening Follow-up: Existing condition and Follow-up Visit Requested Depression Screening Done: Yes 01362 - PHQ-9 Billing: Yes Source: Developed by Drs. Rj Blair, Monica Nicolas, Lavon Contreras and colleagues, with an educational joey from [employer]. Thrive Questionnaire Date Thrive assessed: 10/04/24 I am a: Patient What is your living situation today?: I have a steady place to live Within the past 12 months, did the food you bought not last and you didn't have the money to get more?: Sometimes True Within the past 12 months, did you worry whether your food would run out before you got money to buy more?: Never true Do you have trouble paying for medicines?: No Do you have trouble getting transportation to medical appointments?: No Do you have trouble paying your heating and electricity bill?: No Do you have trouble taking care of your child, family member or friend?: No Do you have trouble with day-to-day activities such as bathing, preparing meals, shopping, managing finances, etc.?: No Are you currently unemployed and looking for a job?: No Are you interested in more education?: No Please select the resources that you would like help with: None Currently or been in a relationship where the following occur: No concerns reported THRIVE Score: 1 AUDIT C Alcohol Use Questionnaire (AUDIT-C) 1. How often do you have a drink containing alcohol?: 2-3 times a week 2. How many drinks containing alcohol do you have on a typical day when you are drinking?: 3 or 4 3. How often do you have six or more drinks on one occasion?: Less than monthly Total Score: 5 Score Reviewed/Action Taken: Yes SALIMA-7 AMB Questionnaire SALIMA-7 Date SALIMA - 7 assessed: 10/04/24 Feeling nervous, anxious, or on edge: 0 = Not at all Not being able to stop or control worryin = Not at all Worrying too much about different things: 0 = Not at all Trouble relaxin = Not at all Being so restless that it is hard to sit still: 0 = Not at all Becoming easily annoyed or irritable: 0 = Not at all Feeling afraid as if something awful might happen: 0 = Not at all Total SALIMA-7 score (0-4 normal; 5-9 mild; 10-14 moderate; 15-21 severe): 0 Source: Developed by Drs. Rj Blair, Monica Nicolas, Lavon Contreras and colleagues, with an educational joey from [employer]. Review of Systems Const Denies chills, Denies fatigue, Denies fever(s) and Denies headache(s) ENT Denies dysphagia, Denies dizziness, Denies otalgia, Denies headache(s), Denies neck pain, Denies odynophagia and Denies sore throat Card Denies chest pain, Denies palpitations and Denies dyspnea Resp Denies chest congestion, Denies cough and Denies dyspnea GI Denies abdominal pain, Denies constipation, Denies dysphagia, Denies heartburn, Denies diarrhea, Denies nausea, Denies odynophagia and Denies vomiting Denies difficulty urinating, Denies dysuria, Denies nocturia and Denies urinary frequency Musc Denies neck pain Skin/Breast Denies rash Neuro Denies dizziness and Denies headache(s) Endo Denies fatigue and Denies palpitations Physical exam (Primary Care) Vital Signs: Last Vital Signs Pulse 67 10/04/24 11:10 BP 150/86 H 10/04/24 11:10 Pulse Ox 97 10/04/24 11:10 Oxygen Delivery Method Room Air 10/04/24 11:10 BMI result Body Mass Index 26.8 Tobacco/Smoking Status: Tobacco use Status Tobacco use date assessed 10/04/24 10/04/24 11:17 Patient Tobacco Use Status Never used Tobacco 10/04/24 11:17 Tobacco use type Cigarette 10/04/24 11:17 e-Cigarette/Vaping Use Never Used 10/04/24 11:17 PHQ-9: PHQ-9 Score PHQ-9: Total score 5 10/04/24 16:14 Depression Screening Interpretation: Positive Depression Screening Follow-up: Existing condition and Follow-up Visit Requested Thrive Assessment: Date of Thrive Assessment Date Thrive assessed 10/04/24 10/04/24 11:17 Currently or been in a relationship where the following occur: No concerns reported Const General: no acute distress and alert HENMT Throat: Yes posterior oropharynx normal and Yes tonsils normal (no TP congestion) Neck Neck: Yes supple and No lymphadenopathy Thyroid: Thyroid normal Resp Auscultation: clear to auscultation bilaterally, no rales and no wheezes Cardio Rate: regular rate Rhythm: regular rhythm Heart sounds: no murmurs GI Palpation (GI): Soft to palpation and nontender Auscultation: normal bowel sounds General: Yes no CVA tenderness Back/Spine/Pelvis Back: no CVA tenderness Thoracic/Lumbar Spine: No lumbar spinal tenderness Skin Rashes: no rashes Extrem General: Yes no clubbing, cyanosis or edema Results Reviewed Results Reviewed: Laboratory Tests 10/03/24 10/03/24 13:07 14:14 WBC 6.0 Hgb 12.8 L Hct 36.7 L Plt Count 193 Sodium 137 Potassium 4.1 Creatinine 1.00 Estimated GFR > 60 Fasting Glucose 88 Calcium 8.5 AST 28 ALT 17 Triglycerides 55 Cholesterol 181 LDL Cholesterol, Calc 84 HDL Cholesterol 86 25-OH Vitamin D Total 16.5 L TSH 2.34 Ur Specific [place] 1.010 Urine Protein Negative Urine Glucose (UA) Negative Urine Blood Negative Urine Nitrite Negative Ur Leukocyte Esterase Negative Coding Level of Care Code Est Pt Level 4 (08036) Diagnoses Essential hypertension I10 Pure hypercholesterolemia E78.00 Vitamin D deficiency E55.9 Eczema, unspecified type L30.9 Eczema type: unspecified Hormone sensitive prostate cancer C61; Z19.1 Overweight (BMI 25.0-29.9) E66.3 Additional Codes PHQ-9 - 44330 - PHQ-9 Billing: Yes ([id number]) Assessment & Plan Assessment & Plan (1) Essential hypertension: Code(s): I10 - Essential (primary) hypertension Category: Medical Plan: Reinforced low sodium diet - goal is systolic BP of at least 130 to 140 mm or less Will increase his Lisinopril from 5 mg to 10 mg QD Patient is reminded to continue monitoring his blood pressure regularly (2) Pure hypercholesterolemia: Code(s): E78.00 - Pure hypercholesterolemia, unspecified Category: Medical Plan: Results of his labs done yesterday reviewed and discussed with patient Reinforced low cholesterol diet Continue Simvastatin 20 mg QD Will recheck his labs and fasting lipids in 4 months for follow up (3) Vitamin D deficiency: Code(s): E55.9 - Vitamin D deficiency, unspecified Category: Medical Plan: Continue Vitamin D3 50 mcg QD (4) Eczema: Code(s): L30.9 - Dermatitis, unspecified Category: Medical Qualifiers: Eczema type: unspecified Qualified Code(s): L30.9 - Dermatitis, unspecified Plan: Continue Clotrimazole-betamethasone 1-0.05% apply to rash BID PRN (5) Hormone sensitive prostate cancer: Code(s): C61 - Malignant neoplasm of prostate; Z19.1 - Hormone sensitive malignancy status Category: Medical Plan: Continue Abiraterone 1000 mg QD and Bicalutamide 50 mg TID Follow up with urology as scheduled (6) Overweight (BMI 25.0-29.9): Code(s): E66.3 - Overweight Category: Medical Plan: Reinforced diet; exercise and weight loss are unrealistic due to his multiple medical conditions and physical issues Plan Follow up in 4 months Orders: Orders Comprehensive [place]. Panel Fast 4 Months E78.00 - Pure hypercholesterolemia, unspecified TSH reflex Free T4 4 Months E78.00 - Pure hypercholesterolemia, unspecified Complete Blood Count Auto Diff 4 Months D64.9 - Anemia, unspecified Lipid Panel 4 Months E78.00 - Pure hypercholesterolemia, unspecified UA CC w/rflx Micro + Cult 4 Months R30.0 - Dysuria Vitamin D 25-OH Total 4 Months E55.9 - Vitamin D deficiency, unspecified Medications: Changed From lisinopril 5 mg PO DAILY 30 tabs 3RF To lisinopril 10 mg PO DAILY 90 tabs 1RF 90 days
--- OUTSIDE RECORDS SUMMARY | 2024-10-04 12:12 | XMS_ITS | Clinical Summary ---
Author Organization [facility] Address [address] [place] [address] Phone Care Team Providers Care Targeteer Name Role Phone Unavailable Primary Care Provider Unavailabl e Encounters Date Type Department Care Team Description 07/20/2024 3:14 PM EDT - 07/20/2024 11:59 PM EDT Hospital Encounter [facility] PET Scan [address] [place] [address] Prostate cancer (CMS/HCC V24, CMS/HCC [...] Patients (1 - 1-dose 75+ series) 2024 Influenza Vaccine (#1) 2024 , 01/08/2023, 01/08/2022, Additional history exists DTaP,Tdap,and Td Vaccines (3 - Td or Tdap) 07/17/2034 07/17/2024, 11/20/2014 Zoster Vaccines Completed 07/29/2023, 05/11/2023 HIB Vaccines Aged Out No longer eligi [...] Routine 07/20/2024 5:10 PM EDT Prostate cancer ([facility] V24, [facility] V28) from Last 3 Months Results * [...] Signed Date: 07/26/2024 05:16 ET Workstation ID: [id number] Transcribed By: Self Edit Transcribed Date: 07/26/2024 [...] not designed to produce and cannot replace yjnus-as-dqt-art true diagnostic CT examination with specific protocols. [...] CT not designed toproduce and cannot replace usuoz-in-pjl-art true diagnostic CT examinationwith specific protocols. Standardized [...] followed. -------- FINAL REPORT -------- Dictated By: nAa Griffith Dictated Date: 07/26/2024 04:53 ET Assigned Physician: Ana Griffith Reviewed and Electronically Signed By: Ana Griffith Signed Date: 07/26/2024 05:16 ET Workstation ID: [id number] Transcribed By: Self Edit Transcribed Date: 07/26/2024 04:53 ET us Jay Jay Dee MD IMG NM PROCEDURES Final Resul t from Last 3 Months Insurance [employer] MEDICARE ADVANTAGE
== END 2024-10-04 11:52 | disposition home or self-care (01) ==
LOC: HO.HMCH 11:07
PROVIDERS: PCP Internal Medicine; Visit Provider Internal Medicine
DX: I10 Essential (primary) hypertension (principal); C61 Malignant neoplasm of prostate; E66.3 Overweight; Z68.26 Body mass index [BMI] 26.0-26.9, adult; E78.00 Pure hypercholesterolemia, unspecified; L30.9 Dermatitis, unspecified; E55.9 Vitamin D deficiency, unspecified; Z19.1 Hormone sensitive malignancy status

== ENCOUNTER → 2024-10-04 11:06 | Outpatient (BNVA) | payer MEDICARE, SELFPAY | PROVIDERS: PCP Internal Medicine; Visit Provider Internal Medicine | DX: I10 Essential (primary) hypertension (principal); E78.00 Pure hypercholesterolemia, unspecified; E55.9 Vitamin D deficiency, unspecified; L30.9 Dermatitis, unspecified; C61 Malignant neoplasm of prostate; E66.3 Overweight; Z19.1 Hormone sensitive malignancy status; Z68.26 Body mass index [BMI] 26.0-26.9, adult | CPT/HCPCS: 96127; 99212 ==

== ENCOUNTER 2024-10-25 07:46 | Outpatient (REF) | payer MEDICARE, SELFPAY ==
--- OUTSIDE RECORDS SUMMARY | 2024-08-19 05:30 | XMS_ITS ---
Author Organization [facility] Address [address] [place] [address] Care Team Providers Care Suture Gauger Name Role Phone Kyree Johnson MD Primary Care Provider Unavaila Rj Monzon Unavailable [phone] REASON FOR VISIT screening Encounters Encounter Location Date Provider Diagnosis [facility] [place] Outpatient [address] [place], [place] [phone] 08/19/2024 Rj Robert Colon cancer scree dominick [...] * ZI SORENSONDOB: 0 (74 yo M)Acc No.[id number]:08/19/2024 COLON WITH MAC Patient: ZI LAMAS Provider: Jimbo Robert MD :1950 A ge:74 Y S ex:Male Date:08/19/2024 Address:[address] [place], [place] [phone] Pcp:Kyree Johnson MD Subjective: * Chief Complaints: [...] MD Date: 0 08/19/2024 Generated for Tomer hermna/Paresh/Viviitting on: 0 10/25/2024 07:48 AM EDT
--- OUTSIDE RECORDS SUMMARY | 2024-10-20 23:59 | XMS_ITS | Continuity of Care Document ---
Author Organization [facility] Address [address] [place] [address]- Care Team Providers Care Cup Setter Lockstitch Name Role Phone Kyree Johnson MD Primary Care Physician Encounter [facility] Date(s): 09/20/24 - 10/20/24 [facility] [address] [place] [address] Attending Physician: Piyush Hubbard Admitting Physician: Piyush Hubbard Referring Physician: AdmtrPiyush Encounter Type: Triage Allergies, Adverse Reactions, Alerts Substance Criticality Severity Reaction Reaction Severity Status penicillins Active Immunizations Given and Recorded Vaccine Date Status Refusal Reason tetanus/diphtheria/pertussis, acel(Tdap) 07/17/24 Given Medications simvastatin 20 mg oral tablet 1 tablet = 20 mg, By Mouth, Daily at bedtime, 0 Refills, Maintenance, 11/01/13 7:53:32 AM EDT Start Date: 11/01/13 Status: Ordered Repeat number: 1 Triple Antibiotic Plus topical ointment 1 application, Topically, 2 times a day, # 15 Gm, 0 Refills, Maintenance, 07/17/24 5:03:00 PM EDT, Ointment, [id number], Partial fill upon patient request if the prescription is for a scheduleII opioid drug., 1 application Topically 2 times a day,x7 days, 173, cm, 07/17/24 14:33:00 EDT, Height, 80, kg, 07/17/24 14:33:00 EDT, Dry Weight Start Date: 07/17/24 Stop Date: 07/24/24 Status: Ordered Quantity: 15.0 Unit: g Repeat number: 1 Problem List Condition Confirmation Course Effective Dates Status Health St atus Informant Well adult exam Confirmed Active Encounter for screening colonoscopy Confirmed Active Social History Social History Type Response Smoking Status Never (less than 100 in lifetime) entered on: 07/17/24 Sex Sex Representation Male (finding) Patient Care team information Care Team Personnel Name: Kyree Johnson MD Position: Reference Physician Member Role: PCP Address: [address] [place] [id number] Telecom: Care Team Related Persons Name: ANGIE SORENSON Insurance Providers Guarantor name: ZIRAJANI CABRERAELL [facility]ly [facility] Information #: 1 Payer: [facility] MEDIC[facility] AD[facility] PPO Payer Identifier: NA Member Number: [id number] Group Number: [id number] Subscriber Identifier: [id number] Relationship to Subscriber: self Coverage Type: Medicare PPO Coverage Verification Date: Telecom: NA Address:
--- OUTSIDE RECORDS SUMMARY | 2024-10-25 07:48 | XMS_ITS | Clinical Summary ---
Author Organization [facility] Address [address] [place] [address] Phone Care Team Providers Care Almond Cutting Machine Tender Name Role Phone Unavailable Primary Care Provider Unavailabl e Social History Tobacco Use Types Packs/Day Years Used Date Smoking Tobacco: Never Assessed Sex and Gender Information Value Date Recorded Sex Assigned at Not on file Legal Sex Male 2:58 PM EDT Gender Identity Not on file Sexual Orientation Not on file Plan of Treatment Health Maintenance Due Date Last Done Comments Pneumococcal Vaccine: 50+ Years (2 of 2 - PPSV23) 01/22/2019 01/22/2018 Depression Screening 03/30/2024 COVID-19 Vaccine ( season) 2024 12/02/2023, 01/08/2023, 01/08/2022, Additional history exists Cholesterol Screening (Lipid Panel) 07/21/2024 Colorectal Cancer Screening: Colonoscopy 07/21/2024 Falls Risk Assessment 07/21/2024 Hepatitis C [...] on patient's age to complete this topic Insurance [employer] MEDICARE ADVANTAGE
--- OUTSIDE RECORDS SUMMARY | 2024-10-25 07:48 | XMS_ITS | Clinical Summary ---
Author Organization [facility] Address [address] [address] Phone Care Team Providers Care Picture Painter Name Role Phone Kyree Johnson MD Primary Care Provider Allergies Active Allergy Reactions Criticality Noted Date Comments Penicillins 05/26/2021 Medications EPINEPHrine 0.3 mg/0.3 mL auto-injector INJECT 0.3ML INTRAMUSCULARLY EVERY 10 MINUTES NEEDED FOR ANAPHYLAXIS 04/10/19 22 Active simvastatin (ZOCOR) 20 MG tablet Take 20 mg by mouth daily. 04/11/19 22 Active triamcinolone acetonide 0.1 % cream APPLY TOPICALLY TWICE A DAY FOR 2 WEEKS FOLLOWED BY MOISTURIZER 04/08/19 22 Active methylPREDNISo lone (MEDROL DOSEPACK) 4 mg tablet follow package directions 21 tablet 04/01/19 24 Active Additional Information Patient not taking.Reported on 01/07/2024 clotrimazole-b etamethasone (LOTRISONE) cream APPLY TO AFFECTED AREA TOPICALLY TWICE A DAY FOR 2 WEEKS 12/31/19 24 Active doxycycline hyclate (VIBRAMYCIN) 100 MG capsule TAKE 1 CAPSULE BY MOUTH TWICE A DAY FOR 1 WEEK. BE CAREFUL OF PROLONGED EXPOSURE TO THE 12/01/19 24 Active Active Problems No known active problems Immunizations Immunization Administration Dates Next Due Influenza High-Dose Trivalent Preservative Free IM 01/22/2018 Influenza Quadrivalent Preservative Free IM 03/30,05/02/2020 Pneumococcal conjugate PCV13 01/22/2018 Tdap 11/20/2014 Social History Tobacco Use Types Packs/Day Years Used Date Smoking Tobacco: Never Smokeless Tobacco: Never Tobacco Cessation:Counseling Given: Not Answered Education Answer Date Recorded Are you interested in more education? Not on masoud e 07/26/2022 Are you concerned about learning? Not on file 07/26/2022 No 07/26/2022 No 07/26/2022 Digital Access Answer Date Recorded No 08/24/2022 No 08/24/2022 Reliable internet access at home? Not on file 08/24/2022 Device with a working camera? Not on file Sex and Gender Information Value Date Recorded Sex Assigned at Not on file Legal Sex Male 2:57 PM EST Gender Identity Not on file Sexual Orientation Not on file Last Filed Vital Signs Vital Sign Reading Time Taken Comments Blood Pressure 182/125 01/07/2024 12:57 PM EDT Pulse 90 01/07/2024 12:57 PM EDT Temperature 36.9 C (98.4 F) 01/07/2024 12:57 PM EDT Respiratory Rate 22 01/07/2024 12:57 PM EDT Oxygen Saturation 97% 01/07/2024 12:57 PM EDT Inhaled Oxygen Concentration - - Weight 81.6 kg (180 lb) 05/26/2021 3:07 PM EST Height 172.7 cm (5' 8 ) 05/26/2021 3:07 PM EST Body Mass Index 27.37 05/26/2021 3:07 PM EST Plan of Treatment Health Maintenance Due Date Last Done Comments LIPID PANEL 1949 DEPRESSION SCREENING 1961 HEPATITIS C SCREENING 07/24/1967 COLOGUARD 1994 COLONOSCOPY 1994 COLORECTAL CANCER SCREENING 1994 FIT TEST 1994 FOBT 1994 SIGMOIDOSCOPY 1994 VIRTUAL COLONOSCOPY 1994 PNEUMOCOCCAL VACCINES (50+ years) (2 of 2 - PPSV23) 01/22/2019 01/22/2018 COVID-19 VACCINE ( season) 2024 12/02/2023, 01/08/2023, 01/08/2022, Additional history exists RSV VACCINE (1 - 1-dose 75+ series) 2024 Adult Td,Tdap Booster 11/20/2024 11/20/2014 ZOSTER VACCINES Completed 07/29/2023, 05/11/2023 SMOKING STATUS SCREENING (Once After 26 Yrs) Completed 01/07/2024 HEPATITIS A VACCINES Aged Out No long er eligible based on patient's age to complete this topic HIB VACCINES Aged Out No longer eligi ble based on patient's age to complete this topic MENINGOCOCCAL VACCINES (ACWY) Aged Out No longer eligible based on patient's age to complete this topic MENINGOCOCCAL VACCINES (B) Aged Out N o longer eligible based on patient's age to complete this topic Medical Devices Not on file Insurance [facility] MEDICARE REPLACEMENT [facility] MEDICARE REPLACEMENT [facility] MEDICARE REPLACEMENT [employer] PPO MEDICARE REPLACEMENT [facility] PPO MEDICARE REPLACEMENT [facility] PPO MEDICARE REPLACEMENT [facility] PPO MEDICARE REPLACEMENT Care Teams Picture Painter Relationship Specialty Start Date End Date Kyree Johnson MD [address] [place] [address] [place] [address] PCP - General Internal Medicine 05/26/21 Additional Source Comments The information contained in this document represents components of the legal health record. It is not the complete legal health record.[facility]
--- NOTE | 2024-10-25 08:37 | P.OP_ITS ---
Operative Note Operative Note Date of Service: 10/25/24 Narrative: Preoperative diagnosis: Prostate cancer Postoperative diagnosis: Prostate cancer Procedure: 1. Transrectal ultrasound-guided pudendal nerve block 2. Transrectal ultrasound-guided Visicoil marker seed placement Surgeon: Dr. Jay Jay Dee Anesthetic: Local Indications for procedure: Prostate Cancer Procedure: After informed consent was verified, the patient was brought into the procedure area and lay left-hand side down on the table. Patient identity confirmed. Perioperative antibiotics confirmed. Gel was placed per rectum Ultrasound probe was placed per rectum A ultrasound-guided pudendal nerve block was performed using 10 cc of 1% lidoc marycruz. 8 cc was placed at the base and 2 cc of the apex. 2 Visicoil seed markers placed. 1 on the right, 1 on the left. The purpose is for triangulation. He tolerated the procedure well. Was able to ambulate to bathroom after 5 minutes. Printed instructions regarding antibiotic use and common side effects such as low-grade temperature and bleeding were given
[2024-10-25] MEDS: Lidocaine HCl 1 % MPF 5 ML VIAL 10 ML SUBCUT (08:46)
== END 2024-10-25 07:47 | disposition home or self-care (01) ==
LOC: HO.US 07:46
PROVIDERS: PCP Internal Medicine; Visit Provider Urology
DX: R97.20 Elevated prostate specific antigen [PSA] (principal)
CPT/HCPCS: 55700; 76942; A4648; J2003

== ENCOUNTER → 2024-10-25 07:46 | Outpatient (BNV) | payer MEDICARE, SELFPAY | PROVIDERS: PCP Internal Medicine; Visit Provider Urology | DX: C61 Malignant neoplasm of prostate (principal) | CPT/HCPCS: 55876; 76872 ==

== ENCOUNTER 2025-01-24 13:54 | Outpatient (AMB) | payer MEDICARE, SELFPAY ==
--- OUTSIDE RECORDS SUMMARY | 2024-05-04 07:20 | XMS_ITS ---
Author Organization [facility] Address [address] [place] [address] Care Team Providers Care Interior Specialist Name Role Phone Kyree Johnson MD Primary Care Provider Unavaila Rj Monzon [phone] REASON FOR VISIT screening Encounters Encounter Location Date Provider Diagnosis [facility] Out[facility] [address] [place] [phone] 05/04/2024 Rj Robert Plan Of Treatment No Information Progress Notes * ZI SORENSONDOB: 0 (74 yo M)Acc No.[id number]:05/04/2024 COLON WITH MAC Patient: ZI LAMAS Provider: Jimbo Robert MD :1950 A ge:73 Y S ex:Male Date:05/04/2024 Address:[address] [place], [place] [phone] Pcp:Kyree Johnson MD Subjective: * Chief Complaints: [...] MD Date: 0 05/04/2024 Generated for Tomer herman/Paresh/eTanasmitting on: 1 06:14 PM EDT
--- OUTSIDE RECORDS SUMMARY | 2024-08-19 05:30 | XMS_ITS ---
Author Organization [facility] Address [address] [place] [address] Care Team Providers Care Stitchdowns Toe Former Name Role Phone Kyree Johnson MD Primary Care Provider Unavaila Rj Monzon Unavailable [phone] REASON FOR VISIT screening Encounters Encounter Location Date Provider Diagnosis [facility] Outpatient [address] [place], [place] [phone] 08/19/2024 Rj Robert Colon cancer scree dominick [...] * ZI SORENSONDOB: 0 (74 yo M)Acc No.[id number]:08/19/2024 COLON WITH MAC Patient: ZI LAMAS Provider: Jimbo Robert MD :1950 A ge:74 Y S ex:Male Date:08/19/2024 Address:[address] [place], [place] [phone] Pcp:Kyree Johnson MD Subjective: * Chief Complaints: [...] MD Date: 0 08/19/2024 Generated for Tomer herman/Paresh/Emil on: 1 06:12 PM EDT
--- NOTE | 2025-01-24 13:51 | A.OFFVIS_ITS ---
Intake Visit Reasons: Prostate Cancer/Visicoil marker F/U Intake Note: Patient is present for Post Op Visicoil Urology Medication:bicalutamide Antibiotic Allergy:PENICILLIN Blood Thinner:NONE Timber Cruiser Required: No Accompanied by: Self / Same As Patient Allergies penicillin V Allergy (Unknown, Verified 01/24/25 14:08) Rash HPI Comments Details: Joey is a very pleasant male. He is a patient of Dr. Johnson. He is seen for the following urologic conditions - prostate cancer Completed external beam radiation therapy last week Does have some hot flashes And is gradually recovering strength Plan GnRH beginning of March Was not on antiandrogen Start bicalutamide Prostate cancer grade group 5 multi core - localized disease off PET-CT GnRH 09/21 Imaging - 07/22 PET-CT shows localization of disease to prostate, no suspicious note - 09/21 prostate MRI clear PI-RADS 5 lesion, possible extracapsular extension, no suspicious nodes TRUS 40gm Histologic grade: [place] score: 4+5=9 (right base medial), 3+5=8 (left apex lateral), 4+3=7 (right apex medial), 3+4=7 (all other biopsies) % of pattern 4: 20% % of pattern 5: 5% Grade group: 5, 4, 3 and 2 Tumor quantitation: Number cores positive: 12 Total number of cores: 12 % of tissue involved: 70% of all tissue examined Periprostatic fat inv.: Suspicious Seminal vesicle inv.: Not identified Perineural inv.: Present LVI: Not identified PFSH Medical History (Updated 10/09/24 @ 22:42 by Kimani Dozier MD) Vitamin D deficiency Hormone sensitive prostate cancer Overweight (BMI 25.0-29.9) Pure hypercholesterolemia Essential hypertension Hyperlipidemia Surgical History Hx of cataract removal with insertion of prosthetic lens H/O colonoscopy H/O thyroglossal duct cyst History of foot surgery Family History Father No problems noted. Mother Esophageal cancer Brother Past heart attack Social History Housing: House Are you a primary intensive care anaesthetist to a significant other at home: No Do you presently have visiting nurse or other home services: No Alcohol intake: current Alcohol intake frequency: 3 or more drinks per day Comment: very infrequent Patient Tobacco Use Status: Never used Tobacco Tobacco use type: Cigarette e-Cigarette/Vaping Use: Never Used Second Hand Smoke Exposure: No service: No Current occupational status: retired Cognitive needs: No Hearing needs: Yes (hearing aid) Vision needs: No Review of Systems Const Denies chills and Denies fever(s) Card Reports no additional complaints and Denies syncope Resp Denies cough GI Denies abdominal pain and Denies heartburn Reports as per HPI and Denies change in libido Neuro Denies syncope Psych Denies change in libido Endo Denies change in libido Physical Exam Const General: cooperative, healthy appearing, comfortable and no acute distress Orientation/consciousness: patient oriented x3 HEENT Face and sinus: Yes normal facial exam Mouth: moist mucous membranes Neck Neck: Yes normal visual inspection, Yes full ROM and Yes trachea midline Chest Chest palpation & inspection: normal inspection of the chest Resp Effort & Inspection: normal respiratory effort, able to speak in complete sentences and no respiratory distress GI Inspection: Yes normal to inspection Back/Spine/Pelvis Cervical Spine: normal cervical lordosis Thoracic/Lumbar Spine: thoracic and lumbar spine normal to inspection Skin General skin exam: no rashes or lesions noted Neuro General: patient oriented x3, gait normal, tone normal and moves all extremities Extrem General: Yes normal to inspection and Yes capillary refill normal Assessment & Plan Assessment & Plan (1) Hormone sensitive prostate cancer: Code(s): C61 - Malignant neoplasm of prostate; Z19.1 - Hormone sensitive malignancy status Category: Medical Plan Two month follow-up lab work office Orders: Orders Testosterone, Total 2 Months C61 - Malignant neoplasm of prostate, Z19.1 - Hormone sensitive malignancy status Prostate Specific Antigen 2 Months C61 - Malignant neoplasm of prostate, Z19.1 - Hormone sensitive malignancy status Medications: Changed From bicalutamide 50 mg PO TID 30 days 90 tabs 0RF C61 - Malignant neoplasm of prostate, Z19.1 - Hormone sensitive malignancy status To bicalutamide 50 mg PO DAILY 90 tabs 0RF 90 days NS C61 - Malignant neoplasm of prostate, Z19.1 - Hormone sensitive malignancy status Discontinued abiraterone must be taken on empty stomach, at least 1 hr before or 2 hrs after a meal/food Discontinued Reason: Patient Completed Course 1,000 mg (4 x 250 mg) PO DAILY 30 days 120 tabs 5RF C61 - Malignant neoplasm of prostate, Z19.1 - Hormone sensitive malignancy status Patient Instructions: This note is constructed using voice recognition software. While every effort has been made to ensure accuracy director home errors may have been included. Imaging studies, laboratory and physical exam results were discussed and reviewed in detail. No major barriers to patient understanding were identified. An opportunity to ask questions regarding the treatment plan was provided. All questions were answered. The patient expressed understanding and agreement with the above treatment plan. The patient is aware they should contact our office by phone for worsening of their current condition or the appearance of new urologic symptoms. Compliance is encouraged with any medications and followup testing that is ordered. It is a privilege to participate in the urologic care of your patient. If you have any questions or concerns regarding treatment for the above conditions, or other urologic issues, please do not hesitate to contact me. The office telephone contact is [phone]. Sincerely, Dr Jay Jay Dee MD, [facility] - Urology Compassionate Specialist Care for the Genitourinary System Coding Level of Care Code Est Pt Level 3 (37635) Complex EM visit Add On G2211 Diagnoses Hormone sensitive prostate cancer C61; Z19.1
--- OUTSIDE RECORDS SUMMARY | 2025-01-24 18:14 | XMS_ITS | Patient Health Record ---
Author Organization [facility] Address [address] [place] [address] Care Team Providers Care Supervisor Pleating Name Role Phone Alex PEÑA, Kyree Primary Care Provider Rj Claros Unavailable [phone] Allergies Allergen (clinical drug ingredient) Drug/Non Drug Allergy documented on EMR Reaction Allergy Type Onset Date Status Penicillin Unknown Drug Allergy Active Reason For Referral No Information Medications Medication SIG (Take, Route, Fr equency, Duration) Notes Start Date End Date Status Simvastatin 20 MG TAKE 1 TABLET BY ELIZABETH TH EVERY DAY Oral; Duration: 90 Active Social History Tobacco Use: Social [...] Status Risk Notes Problem Colon cancer screening (689379164) Colon cancer screening (Z12.11) Active confirmed Problem Pre-procedure evaluation check (353476348) Encounter for other preprocedural examination (Z01.818) Active confirmed Encounters Encounter Location Date Provider [place] [facility] [place] [address] [id number] [place]/19/2024 Rj Robert Colon cancer screeni ng Z12.11 ; Diverticulosis of large intestine without perforation or abscess without bleeding K57.30 and Other hemorrhoids K64.8 [facility] [address] [place] [address] 03/14/2024 Rj Robert [facility] [address] [place] [phone] 05/03/2024 Rj Robert Assessments Encounter Date Diagnosis (ICD Code) Assessment Notes Treatment Notes Treatment Clinical Notes Section Notes 08/19/2024 Colon cancer screening (ICD-10 - Z12.11) 08/19/2024 Diverticulosis of large intestine without perforation or abscess without bleeding (ICD-10 - K57.30) 08/19/2024 Other hemorrhoids (ICD-10 - K64.8) Plan Of Treatment Future Test Test Name Order Date COLONOSCOPY 01/13/2024 Insurance Providers Payer Name Payer Address Payer Phone Subscriber Number Group Number Insured Name Patient Relationship to Insured Coverage Start Date Coverage End Date [employer] (No Referra l) [address] [address] [place] [address] [id number] ZI SORENSON Self - patient is the insured Medical (General) History Medical History History ICD Code Denies [place],DM,CVA,Lung disease,renal dise ase Negative colonoscopy in 12/17 14 at [facility] other than a hyperplastic polyp that was removed Hyperlipidemia Surgical History Surgery Date(Month/Year) tonsillectomy
--- OUTSIDE RECORDS SUMMARY | 2025-01-24 18:14 | XMS_ITS | Clinical Summary ---
Author Organization [facility] Address [address] [address] Phone Care Team Providers Care Dry Starch Supervisor Name Role Phone Kyree Johnson MD Primary Care Provider [phone] Allergies Active Allergy Reactions Criticality Noted Date [...] (2 of 2 - PPSV23) 01/22/2019 01/22/2018 RSV VACCINE (1 - 1-dose 75+ series) 2024 INFLUENZA VACCINE (#1) 2024 , 01/08/2023, 01/08/2022, Additional history exists Adult Td,Tdap Booster 11/20/2024 11/20/2014 COVID-19 VACCINE ( season) 2024 12/02/2023, 01/08/2023, 01/08/2022, Additional history exists ZOSTER VACCINES Completed 07/29/2023, 05/11/2023 SMOKING STATUS [...] topic Medical Devices Not on file Insurance [facility] MEDICARE REPLACEMENT [facility] MEDICARE REPLACEMENT [facility] MEDICARE REPLACEMENT Member Subscriber Plan / Payer (Ef fective 2023-Present) Name:Jevon De Relation to Subscriber:Self Name:Jevon De Payer ID:Not on file Group ID:Not on file Type:Medicare Address: [id number] [facility] MEDICARE REPLACEMENT [facility] MEDICARE [facility]PLACEMENT [facility]PLAC[facility] [employer] PPO MEDICARE [facility]PLACEMENT [facility] [place] [id number] Care Teams Dry Starch Supervisor Relationship Specialty Start Date End Date Kyree Johnson MD [address] [place] [address] [place] [address] PCP - General Internal Medicine 05/26/21 Additional Source Comments The information contained in this document represents components of the legal health record. It is not the complete legal health record.[facility]
--- OUTSIDE RECORDS SUMMARY | 2025-01-24 18:14 | XMS_ITS | Clinical Summary ---
Author Organization [facility] Address [address] [place] [address] Phone Care Team Providers Care Eyelet Riveter Name Role Phone Unavailable Primary Care Provider Unavailabl e Social History Tobacco Use Types Packs/Day Years Used Date Smoking Tobacco: Never Assessed Sex and Gender Information Value Date Recorded Sex Assigned at Not on file Legal Sex Male 2:58 PM EDT Gender Identity Not on file Sexual Orientation Not on file Plan of Treatment Health Maintenance Due Date Last Done Comments Colorectal Cancer Screening: Colonoscopy 1950 Pneumococcal Vaccine: 50+ Years (2 of 2 - PCV20 or PCV21) 01/22/2019 01/22/2018 Depression Screening 03/30/2024 Abdominal Aortic Aneurysm (AAA) Screen 07/21/2024 Cholesterol Screening (Lipid Panel) 07/21/2024 Falls Risk Assessment 07/21/2024 Hepatitis C Screening 07/21/2024 Medicare Annual Wellness Visit 07/21/2024 Social Influencers of Health Screening 07/21/2024 RSV Immunization Adult Patients (1 - 1-dose 75+ series) 2024 COVID-19 Vaccine ( season) 2024 12/02/2023, 01/08/2023, 01/08/2022, Additional history exists Influenza Vaccine (#1) 2024 , 01/08/2023, 01/08/2022, [...]
== END 2025-01-24 14:30 | disposition home or self-care (01) ==
LOC: HO.HUSH 13:56
PROVIDERS: Visit Provider Urology
DX: C61 Malignant neoplasm of prostate (principal); Z19.1 Hormone sensitive malignancy status
CPT/HCPCS: 99213; G2211

== ENCOUNTER → 2025-01-24 13:54 | Outpatient (BNVA) | payer MEDICARE, SELFPAY | PROVIDERS: Visit Provider Urology | DX: C61 Malignant neoplasm of prostate (principal); Z19.1 Hormone sensitive malignancy status; Z92.3 Personal history of irradiation; Z79.818 Long term (current) use of other agents affecting estrogen receptors and estrogen levels | CPT/HCPCS: 99212 ==

== ENCOUNTER 2025-02-06 11:43 | Outpatient (REF) | payer MEDICARE, SELFPAY ==
[2025-02-06 12:14] LABS: Hematocrit 33.3 % (42.0-52.0); Hemoglobin 11.4 g/dl (14.0-18.0); Imm Gran Abs Auto 0.02 X10*3/uL (0.00-0.03); Imm Gran Pct Auto 0.4 % (0.0-0.4); Lymphocytes Absolute Auto 0.9 X10*3/uL (1.2-4.9); MANUAL DIFF FLAG SCAN; Mean Corpuscular HGB Conc 34.2 g/dl (31.0-36.0); Mean Corpuscular Hemoglobin 36.0 pg (27.0-33.0); Mean Corpuscular Volume 105.0 fL (80.0-98.0); NRBC Abs Auto 0.000 X10*3/uL (0.0-0.012); NRBC Pct Auto 0.0 /100WBC (0.0-0.2); Platelet Count 211 X10*3/uL (160-400); Red Blood Count 3.17 X10*6/uL (4.60-5.80); SCAN SMEAR FLAG 1; White Blood Count 4.5 X10*3/uL (4.8-10.8)
[2025-02-06 12:19] LABS: Appearance Urine Clear; Glucose Urine UA Negative (Negative); PH 5.5 (5.0-9.0); Specific Gravity - Urine 1.020 (1.005-1.025)
[2025-02-06 13:04] LABS: Alanine Aminotransferase 19 U/L (0-40); Albumin Level 4.1 g/dL (3.5-5.0); Alkaline Phosphatase 68 U/L (39-117); Anion Gap 11 (12-20); Aspartate Amino Transferase 29 U/L (5-37); Blood Urea Nitrogen 10 mg/dL (9-16); Calcium 8.6 mg/dL (8.4-10.2); Carbon Dioxide 23 mmol/L (22-29); Chloride 102 mmol/L (96-108); Cholesterol 154 mg/dL (<200); Estimated Glomerular Filt Rate > 60; HDL Cholesterol 68 mg/dL (>40); Potassium 4.2 mmol/L (3.3-5.1); Sodium 132 mmol/L (135-145); Total Protein 6.5 g/dL (6.5-8.0); Triglycerides 60 mg/dL (<150)
--- OUTSIDE RECORDS SUMMARY | 2025-02-06 14:09 | XMS_ITS | Clinical Summary ---
Author Organization [facility] Address [address] [place] [address] Phone Care Team Providers Care Ortho Nurse Name Role Phone Unavailable Primary Care Provider [...]
== END 2025-02-06 11:44 | disposition home or self-care (01) ==
LOC: HO.LAB 11:43
PROVIDERS: PCP Internal Medicine; Visit Provider Internal Medicine
DX: R30.0 Dysuria (principal); E78.00 Pure hypercholesterolemia, unspecified; D64.9 Anemia, unspecified; E55.9 Vitamin D deficiency, unspecified
CPT/HCPCS: 36415; 80053; 80061; 81003; 82306; 84443; 85025

== ENCOUNTER 2025-02-08 10:06 | Outpatient (AMB) | payer MEDICARE, SELFPAY ==
--- OUTSIDE RECORDS SUMMARY | 2024-05-04 06:20 | XMS_ITS ---
Author Organization [facility] Address [address] [place] [address] Care Team Providers Care Slitter Service And Setter Name Role Phone Kyree Johnson MD Primary Care Provider Unavaila Rj Monzon [phone] REASON FOR VISIT screening Encounters Encounter Location Date Provider Diagnosis [facility] Outpatient [address] [place] [phone] 05/04/2024 Rj Robert Plan Of Treatment No Information Progress Notes * ZI SORENSONDOB: 0 (74 yo M)Acc No.[id number]:05/04/2024 COLON WITH MAC Patient: ZI LAMAS Provider: Jimbo Robert MD :1950 A ge:73 Y S ex:Male Date:05/04/2024 Address:[address] [place], [place] [phone] Pcp:Kyree Johnson MD Subjective: * Chief Complaints: * 1 . Screening. * Medical History: Objective: * Vitals: Assessment: Plan: * Treatment: * * The named appointment provid er may or may not be the originator of this progress note, and it is not deemed complete until electronically signed by the appointment provider. Sign off status: Pending * Provider: Jimbo Robert MD Date: 0 05/04/2024 Generated for Tomer herman/Paresh/Viviitting on: 1 04/10/2024 11:48 AM EST
--- OUTSIDE RECORDS SUMMARY | 2024-08-19 04:30 | XMS_ITS ---
Author Organization [facility] Address [address] [place] [address] Care Team Providers Care Brick Machine Operator Name Role Phone Kyree Johnson MD Primary Care Provider Unavaila Rj Monzon Unavailable [phone] REASON FOR VISIT screening Encounters Encounter Location Date Provider Diagnosis [facility] [place] Outpatient [address] [place], [place] [phone] 08/19/2024 Rj Robert Colon cancer scree dominick [...] * ZI SORENSONDOB: 0 (74 yo M)Acc No.[id number]:08/19/2024 COLON WITH MAC Patient: ZI LAMAS Provider: Jimbo Robert MD :1950 A ge:74 Y S ex:Male Date:08/19/2024 Address:[address] [place], [place] [phone] Pcp:Kyree Johnson MD Subjective: * Chief Complaints: * 1 . Screening. * Medical History: Objective: * Vitals: Assessment: * Assessment: 1. C olon cancer screening - Z12.11 (Primary) 2 . D iverticulosis of large intestine without perforation or abscess without bleeding - K57.30 3 . O ther hemorrhoids - K64.8 Plan: * Treatment: * Procedure Codes: G 0121 COLOREC CNCR SCR;COLNSCPY NO HI RSK, 0529F INTRVL 3+YRS PTS CLNSCP DOCD, 0528F RCMND FLW-UP 10 YRS DOCD, Modifiers: 1P * * The named appointment provid er may or may not be the originator of this progress note, and it is not deemed complete until electronically signed by the appointment provider. Sign off status: Pending * Provider: Jimbo Robert MD Date: 0 08/19/2024 Generated for Tomer herman/Paresh/Viviitting on: 1 04/10/2024 11:48 AM EST
--- NOTE | 2025-02-08 10:13 | A.OFFPC_ITS ---
Vital Signs 02/08/25 10:14 Height 5 ft 7 in Weight 168 lb 8 oz BMI 26.4 BP 126/80 Blood Pressure Location Lt brachial Position Sitting Pulse 69 Pulse Source Pulse Oximeter Pulse Oximetry (%) 98 Oxygen Delivery Method Room Air Intake Visit Reasons: hyperlipidemia, HTN, prostate cancer [employer] Required: No Accompanied by: Self / Same As Patient Allergies penicillin V Allergy (Unknown, Verified 02/08/25 11:02) Rash Medication List - Last Reconciled 02/08/25 by Kimani Dozier MD bicalutamide 50 mg PO DAILY 90 days NS cholecalciferol (vitamin D3) 50 mcg PO DAILY 90 days clotrimazole-betamethasone 1-0.05 % 1 appl topical BID 2 weeks epinephrine (EpiPen 2-Nate) 0.3 mg (0.3 mL) IM Q10M PRN lisinopril 10 mg PO DAILY 90 days simvastatin 20 mg PO DAILY Tobacco use date assessed: 02/08/25 Fall risk assessment: 2 + Falls in past year Last assessed Fall Risk: 02/08/25 Dental Screening Dental Screen Date: 02/08/25 Did you have a dental visit in the last 12 months?: No Did you have a dental problem in the last 6 months where you did not have access to dental care?: No Was dental information given to patient?: No HPI hyperlipidemia, HTN, prostate cancer HPI Details Patient comes in today for his follow up visit States that he feels okay He denies any recent headaches or dizziness Denies any chest pains, no increased SOB No nausea/vomiting, no abdominal pain No change in bowel habits noted States that he completed his radiation Tx for his prostate cancer last month and thinks that he did well so far with his Tx He had his follow up labs done a couple of days ago - to discuss his results COUNT INCLUDES THE [facility] Medical History (Updated 02/08/25 @ 12:38 by Kimani Dozier MD) Vitamin D deficiency Hormone sensitive prostate cancer Overweight (BMI 25.0-29.9) Pure hypercholesterolemia Essential hypertension Hyperlipidemia Surgical History (Updated 02/08/25 @ 11:07 by Kimani Dozier MD) Hx of cataract removal with insertion of prosthetic lens H/O colonoscopy H/O thyroglossal duct cyst History of foot surgery Family History Father No problems noted. Mother Esophageal cancer Brother Past heart attack Social History Housing: House Are you a primary patient care provider to a significant other at home: No Do you presently have visiting nurse or other home services: No Alcohol intake: current Alcohol intake frequency: 3 or more drinks per day Comment: very infrequent Patient Tobacco Use Status: Never used Tobacco Tobacco use type: Cigarette e-Cigarette/Vaping Use: Never Used Second Hand Smoke Exposure: No service: No Current occupational status: retired Cognitive needs: No Hearing needs: Yes (hearing aid) Vision needs: No Questionnaire PHQ-9 Over the last 2 weeks, how often have you been bothered by any of the following problems? 1. Little interest or pleasure in doing things: several days 2. Feeling down, depressed, or hopeless: not at all 3. Trouble falling or staying asleep, or sleeping too much: more than half the days 4. Feeling tired or having little energy: more than half the days 5. Poor appetite or overeating: not at all 6. Feeling bad about yourself - or that you are a failure or have let yourself or your family down: not at all 7. Trouble concentrating on things, such as reading the newspaper or watching television: not at all 8. Moving or speaking so slowly that other people could have noticed. Or the opposite - being so fidgety or restless that you have been moving around a lot more than usual: not at all 9. Thoughts that you would be better off or of hurting yourself in some way: not at all Total score: 5 Depression Screening Interpretation: Positive Depression Screening Follow-up: Follow-up Visit Requested Depression Screening Done: Yes 62067 - PHQ-9 Billing: Yes Source: Developed by Drs. Rj Blair, Monica Nicolas, Lavon Contreras and colleagues, with an educational joey from [employer]. Thrive Questionnaire Date Thrive assessed: 02/08/25 I am a: Patient What is your living situation today?: I have a steady place to live Within the past 12 months, did the food you bought not last and you didn't have the money to get more?: Sometimes True Within the past 12 months, did you worry whether your food would run out before you got money to buy more?: Never true Do you have trouble paying for medicines?: No Do you have trouble getting transportation to medical appointments?: No Do you have trouble paying your heating and electricity bill?: No Do you have trouble taking care of your child, family member or friend?: No Do you have trouble with day-to-day activities such as bathing, preparing meals, shopping, managing finances, etc.?: No Are you currently unemployed and looking for a job?: No Are you interested in more education?: No Please select the resources that you would like help with: None Currently or been in a relationship where the following occur: No concerns reported THRIVE Score: 1 AUDIT C Alcohol Use Questionnaire (AUDIT-C) 1. How often do you have a drink containing alcohol?: 2-3 times a week 2. How many drinks containing alcohol do you have on a typical day when you are drinking?: 3 or 4 3. How often do you have six or more drinks on one occasion?: Less than monthly Total Score: 5 Score Reviewed/Action Taken: Yes SALIMA-7 AMB Questionnaire SALIMA-7 Date SALIMA - 7 assessed: 02/08/25 Feeling nervous, anxious, or on edge: 0 = Not at all Not being able to stop or control worryin = Not at all Worrying too much about different things: 0 = Not at all Trouble relaxin = Not at all Being so restless that it is hard to sit still: 0 = Not at all Becoming easily annoyed or irritable: 0 = Not at all Feeling afraid as if something awful might happen: 0 = Not at all Total SALIMA-7 score (0-4 normal; 5-9 mild; 10-14 moderate; 15-21 severe): 0 Source: Developed by Drs. Rj Blair, Monica Nicolas, Lavon Contreras and colleagues, with an educational joey from [employer]. Review of Systems Const Denies chills, Denies fatigue, Denies fever(s) and Denies headache(s) ENT Denies dysphagia, Denies dizziness, Denies otalgia, Denies headache(s), Denies neck pain, Denies odynophagia and Denies sore throat Card Denies chest pain, Denies palpitations and Denies dyspnea Resp Denies chest congestion, Denies cough and Denies dyspnea GI Denies abdominal pain, Denies constipation, Denies dysphagia, Denies heartburn, Denies diarrhea, Denies nausea, Denies odynophagia and Denies vomiting Denies hematuria, Denies difficulty urinating, Denies dysuria, Denies nocturia and Denies urinary frequency Musc Denies back pain and Denies neck pain Skin/Breast Reports dry skin and Denies rash Neuro Denies dizziness and Denies headache(s) Endo Denies fatigue and Denies palpitations Physical exam (Primary Care) Vital Signs: Last Vital Signs Pulse 69 02/08/25 10:14 BP 126/80 02/08/25 10:14 Pulse Ox 98 02/08/25 10:14 Oxygen Delivery Method Room Air 02/08/25 10:14 BMI result Body Mass Index 26.4 Tobacco/Smoking Status: Tobacco use Status Tobacco use date assessed 02/08/25 02/08/25 10:17 Patient Tobacco Use Status Never used Tobacco 02/08/25 10:17 Tobacco use type Cigarette 02/08/25 10:17 e-Cigarette/Vaping Use Never Used 02/08/25 10:17 PHQ-9: PHQ-9 Score PHQ-9: Total score 5 02/08/25 10:50 Depression Screening Interpretation: Positive Depression Screening Follow-up: Follow-up Visit Requested Thrive Assessment: Date of Thrive Assessment Date Thrive assessed 02/08/25 02/08/25 10:17 Currently or been in a relationship where the following occur: No concerns reported Const General: no acute distress and alert HENMT Ears: TM's normal bilaterally and EAC's normal Throat: Yes posterior oropharynx normal and Yes tonsils normal (no TP congestion) Neck Neck: Yes supple and No lymphadenopathy Thyroid: Thyroid normal Resp Auscultation: clear to auscultation bilaterally, no rales and no wheezes Cardio Rate: regular rate Rhythm: regular rhythm Heart sounds: no murmurs GI Palpation (GI): Soft to palpation and nontender Auscultation: normal bowel sounds General: Yes no CVA tenderness Back/Spine/Pelvis Back: no CVA tenderness Thoracic/Lumbar Spine: No lumbar spinal tenderness Skin Rashes: no rashes Extrem General: Yes no clubbing, cyanosis or edema Results Reviewed Results Reviewed: Laboratory Tests 02/06/25 02/06/25 11:50 11:53 WBC 4.5 L Hgb 11.4 L Hct 33.3 L Plt Count 211 Sodium 132 L Potassium 4.2 Creatinine 0.97 Estimated GFR > 60 Fasting Glucose 99 Calcium 8.6 AST 29 ALT 19 Triglycerides 60 Cholesterol 154 LDL Cholesterol, Calc 74 HDL Cholesterol 68 25-OH Vitamin D Total 21.2 L TSH 2.46 Ur Specific [place] 1.020 Urine Protein Trace Urine Glucose (UA) Negative Urine Blood Negative Urine Nitrite Negative Ur Leukocyte Esterase Negative Coding Level of Care Code Est Pt Level 4 (16278) Diagnoses Essential hypertension I10 Pure hypercholesterolemia E78.00 Vitamin D deficiency E55.9 Eczema, unspecified type L30.9 Eczema type: unspecified Anemia, unspecified type D64.9 Anemia type: unspecified type Hormone sensitive prostate cancer C61; Z19.1 Overweight (BMI 25.0-29.9) E66.3 Additional Codes PHQ-9 - 25872 - PHQ-9 Billing: Yes ([id number]) Assessment & Plan Assessment & Plan (1) Essential hypertension: Code(s): I10 - Essential (primary) hypertension Category: Medical Plan: Reinforced low sodium diet - goal is systolic BP of at least 130 to 140 mm or less His blood pressure seems to be better controlled after we increased the dose of his Lisinopril at his last visit Continue Lisinopril 10 mg QD Patient is reminded to continue monitoring his blood pressure regularly (2) Pure hypercholesterolemia: Code(s): E78.00 - Pure hypercholesterolemia, unspecified Category: Medical Plan: Results of his labs done a couple of days ago reviewed and discussed with patient Reinforced low cholesterol diet Continue Simvastatin 20 mg QD Will recheck his labs and fasting lipids in 4 months for follow up (3) Vitamin D deficiency: Code(s): E55.9 - Vitamin D deficiency, unspecified Category: Medical Plan: Continue Vitamin D3 50 mcg QD (4) Eczema: Code(s): L30.9 - Dermatitis, unspecified Category: Medical Qualifiers: Eczema type: unspecified Qualified Code(s): L30.9 - Dermatitis, unspecified Plan: Continue Clotrimazole-betamethasone 1-0.05% apply to rash BID PRN He is also advised that his skin is very dry and he should use OTC lotions or skin moisturizers as liberally as he can, especially during the dry winter [facility] (5) Anemia: Code(s): D64.9 - Anemia, unspecified Category: Medical Qualifiers: Anemia type: unspecified type Qualified Code(s): D64.9 - Anemia, unspecified Plan: This is likely related to his prostate cancer diagnosis His most recent H/H on his labs done a couple of days ago was at 11.4/33.3; he also appears to have some macrocytosis and hyperchromia on his CBC He had a repeat colonoscopy done back in July [address] Robert, which revealed (+) diverticulosis and internal hemorrhoids Will continue to monitor his CBC regularly and will include some additional labs for further evaluation of his anemia in 4 months (6) Hormone sensitive prostate cancer: Code(s): C61 - Malignant neoplasm of prostate; Z19.1 - Hormone sensitive malignancy status Category: Medical Plan: Patient completed external beam radiation therapy at [facility] last month Continue Bicalutamide 50 mg QD; Abiraterone 1000 mg QD was discontinued by urology a couple of weeks ago Follow up with urology as scheduled (7) Overweight (BMI 25.0-29.9): Code(s): E66.3 - Overweight Category: Medical Plan: Reinforced diet; exercise and weight loss are unrealistic due to his multiple medical conditions and physical issues Plan Follow up in 4 months Orders: Orders Complete Blood Count Auto Diff 4 Months D64.9 - Anemia, unspecified UA CC w/rflx Micro + Cult 4 Months R30.0 - Dysuria Vitamin B12 and Folate 4 Months E53.8 - Deficiency of other specified B group vitamins Vitamin D 25-OH Total 4 Months E55.9 - Vitamin D deficiency, unspecified Comprehensive [place]. Panel Fast 4 Months E78.00 - Pure hypercholesterolemia, unspecified Lipid Panel 4 Months E78.00 - Pure hypercholesterolemia, unspecified IRON PROFILE 4 Months D50.9 - Iron deficiency anemia, unspecified
[2025-02-08 10:14] VITALS: BP 126/80; PULSE 69; O2SAT 98; BMI 26.4
--- OUTSIDE RECORDS SUMMARY | 2025-02-08 11:48 | XMS_ITS | Clinical Summary ---
Author Organization [facility] Address [address] [place] [address] Phone Care Team Providers Care Sports Equipment Repairer Name Role Phone Unavailable Primary Care Provider [...]
--- OUTSIDE RECORDS SUMMARY | 2025-02-08 11:48 | XMS_ITS | Clinical Summary ---
Author Organization [facility] Address [address] [address] Phone Care Team Providers Care Electrotype Servicer Name Role Phone Kyree Johnson MD Primary Care Provider [phone] Allergies Active Allergy Reactions Criticality Noted Date [...] VACCINES (50+ years) (2 of 2 - PCV20 or PCV21) 01/22/2019 01/22/2018 RSV VACCINE (1 - 1-dose [...] patient's age to complete this topic IPV VACCINES Aged Out No longer eligi ble based on patient's age to complete this topic MENINGOCOCCAL VACCINES (ACWY) Aged Out No longer eligible based on patient's age to complete this topic MENINGOCOCCAL VACCINES (B) Aged Out N o longer eligible based on patient's age to complete this topic Medical Devices Not on file Insurance [facility] MEDICARE REPLACEMENT [facility] MEDICARE REPLACEMENT [facility] MEDICARE REPLACEMENT Member Subscriber Plan / Payer (Ef fective 2023-Present) Name[place] Relation to Subscriber:Self Name:Jevon De Payer ID:Not on file Group ID:Not on file Type:Medicare Address: [address] [facility] MEDICARE REPLACEMENT [facility] MEDICARE REPLACEMENT [facility] MEDICARE REPLACEMENT [facility] PPO MEDICARE REPLACEMENT [facility] MEDICARE REPLACEMENT [facility] PPO MEDICARE REPLACEMENT Care Teams Electrotype Servicer Relationship Specialty Start Date End Date Kyree Johnson MD [address] [place] [address] [place] [address] PCP - General Internal Medicine 05/26/21 Additional Source Comments The information contained in this document represents components of the legal health record. It is not the complete legal health record.[facility]
--- OUTSIDE RECORDS SUMMARY | 2025-02-08 11:48 | XMS_ITS | Patient Health Record ---
Author Organization [facility] Address [address] [place] [address] Care Team Providers Care Cover Maker Name Role Phone Alex PEÑA, Kyree Primary Care Provider Rj Claros Unavailable [phone] Allergies Allergen (clinical drug ingredient) Drug/Non Drug [...] Status Risk Notes Problem Colon cancer screening (253484559) Colon cancer screening (Z12.11) Active confirmed Problem Pre-procedure evaluation check (610338803) Encounter for other preprocedural examination (Z01.818) Active confirmed Encounters Encounter Location Date Provider Diagnosis [facility] [place] [address] [place], [place] [phone] 08/19/2024 Rj Robert Colon cancer screeni ng Z12.11 ; Diverticulosis of large intestine without perforation or abscess without bleeding K57.30 and Other hemorrhoids K64.8 [facility] [address] [place] [address] 03/14/2024 Rj Robert [facility] [address] [place] [phone] 05/03/2024 Rj Robert Assessments Encounter Date Diagnosis [...] Date [employer] (No Referra l) [address] [address] [place] [address] [id number] ZI SORENSON Self - patient is the insured Medical (General) History Medical History History ICD Code Denies [place],DM,CVA,Lung disease,renal dise ase Negative colonoscopy in 12/17 14 at [facility] other than a hyperplastic polyp that was removed Hyperlipidemia Surgical History Surgery Date(Month/Year) tonsillectomy
== END 2025-02-08 11:16 | disposition home or self-care (01) ==
LOC: HO.HMCH 10:07
PROVIDERS: PCP Internal Medicine; Visit Provider Internal Medicine
DX: I10 Essential (primary) hypertension (principal); E78.00 Pure hypercholesterolemia, unspecified; E55.9 Vitamin D deficiency, unspecified; L30.9 Dermatitis, unspecified; D64.9 Anemia, unspecified; C61 Malignant neoplasm of prostate; Z19.1 Hormone sensitive malignancy status; E66.3 Overweight

== ENCOUNTER → 2025-02-08 10:06 | Outpatient (BNVA) | payer MEDICARE, SELFPAY | PROVIDERS: PCP Internal Medicine; Visit Provider Internal Medicine | DX: I10 Essential (primary) hypertension (principal); C61 Malignant neoplasm of prostate; E78.00 Pure hypercholesterolemia, unspecified; E55.9 Vitamin D deficiency, unspecified; L30.9 Dermatitis, unspecified; D64.9 Anemia, unspecified; E66.3 Overweight; Z68.26 Body mass index [BMI] 26.0-26.9, adult; Z19.1 Hormone sensitive malignancy status | CPT/HCPCS: 96127; 99212 ==

== ENCOUNTER 2025-03-22 13:26 | Outpatient (REF) | payer MEDICARE, SELFPAY ==
--- OUTSIDE RECORDS SUMMARY | 2024-05-04 06:20 | XMS_ITS ---
Author Organization [facility] Address [address] [place] [address] Care Team Providers Care Coil Strapper Name Role Phone Kyree Johnson MD Primary Care Provider Unavaila Rj Monzon Unavailable [phone] REASON FOR VISIT screening Encounters Encounter Location Date Provider Diagnosis [facility] [address] [place] [id number] 05/04/2024 Rj Robert Plan Of Treatment No Information Progress Notes * ZI SORENSONDOB: 0 (74 yo M)Acc No.[id number]:05/04/2024 COLON WITH MAC Patient: ZI LAMAS Provider: Jimbo Robert MD :1950 A ge:73 Y S ex:Male Date:05/04/2024 Address:[address] [place], [place] [phone] Pcp:Kyree Johnson MD Subjective: * Chief Complaints: * S creening * The named appointment provid er may or may not be the originator of this progress note, and it is not deemed complete until electronically signed by the appointment provider. Sign off status: Pending * Provider: Jimbo Robert MD Date: 0 05/04/2024 Generated for Tomer herman/Paresh/Viviitting on: 05/23/2024 01:29 PM EST
--- OUTSIDE RECORDS SUMMARY | 2024-08-19 04:30 | XMS_ITS ---
Author Organization [facility] Address [address] [place] [address] Care Team Providers Care Pediatric Physician Name Role Phone Kyree Johnson MD Primary Care Provider Unavaila Rj Monzon Unavailable [phone] REASON FOR VISIT screening Encounters Encounter Location Date Provider Diagnosis [facility] [place] [address] [place], [place] [id number] 08/19/2024 Rj Robert Colon cancer scree dominick Z12.11 ; Diverticulosis of large intestine without perforation or abscess without bleeding K57.30 and Other hemorrhoids K64.8 Assessments Encounter Date Diagnosis (ICD Code) Assessment Notes Treatment Notes Treatment Clinical Notes Section Notes 08/19/2024 Colon cancer screening (ICD-10 - Z12.11) 08/19/2024 Diverticulosis of large intestine without perforation or abscess without bleeding (ICD-10 - K57.30) 08/19/2024 Other hemorrhoids (ICD-10 - K64.8) Plan Of Treatment No Information Progress Notes * ZI SORENSONDOB: 0 (74 yo M)Acc No.[id number]:08/19/2024 COLON WITH MAC Patient: ZI LAMAS Provider: Jimbo Robert MD :1950 A ge:74 Y S ex:Male Date:08/19/2024 Address:[address] [place] [address] Pcp:Kyree Johnson MD Subjective: * Chief Complaints: * S creening Assessment: * Assessment: 1. C olon cancer screening - Z12.11 (Primary) 2 . D iverticulosis of large intestine without perforation or abscess without bleeding - K57.30 3 . O ther hemorrhoids - K64.8 Plan: * Procedure Codes: G 0121 COLOREC CNCR SCR;COLNSCPY NO HI [id number] INTRVL 3+YRS PTS CLNSCP [id number] RCMND FLW-UP 10 YRS DOCD, Modifiers: 1P Billing Information: * Procedure Codes: G0121 COLOREC CNCR SCR;COLNSCPY NO HI RSK. 0529F INTRVL 3+YRS PTS CLNSCP DOCD. 0528F RCMND FLW-UP 10 YRS DOCD. Modifiers: 1P * The named appointment provid er may or may not be the originator of this progress note, and it is not deemed complete until electronically signed by the appointment provider. Sign off status: Pending * Provider: Jimbo Robert MD Date: 0 08/19/2024 Generated for Tomer herman/Paresh/Viviitting on: 1 05/23/2024 01:28 PM EST
--- OUTSIDE RECORDS SUMMARY | 2025-03-22 13:29 | XMS_ITS | Clinical Summary ---
Author Organization [facility] Address [address] [place] [address] Phone Care Team Providers Care Saute Chef Name Role Phone Unavailable Primary Care Provider [...]
--- OUTSIDE RECORDS SUMMARY | 2025-03-22 13:29 | XMS_ITS | Clinical Summary ---
Author Organization [facility] Address [address] [address] Phone Care Team Providers Care Product Blending Supervisor Name Role Phone Kyree Johnson MD Primary Care Provider [phone] Allergies Active Allergy Reactions Criticality Noted Date [...] topic Medical Devices Not on file Insurance [facility] MEDICARE REPLACEMENT [facility] MEDIC[facility] REPLACEMENT [facility] MEDICARE REPLACEMENT [facility] MEDICARE REPLACEMENT [facility] MEDICARE REPLACEMENT [facility] [employer] P[employer] MEDICARE REPLACEMENT [employer] MEDICARE REPLACEMENT [employer] MEDICARE REPLACEMENT Care Teams Product Blending Supervisor Relationship Specialty Start Date End Date Kyree Johnson MD [address] [place] [address] [place] [address] PCP - General Internal Medicine 05/26/21 Additional Source Comments The information contained in this document represents components of the legal health record. It is not the complete legal health record.[facility]
--- OUTSIDE RECORDS SUMMARY | 2025-03-22 13:29 | XMS_ITS | Patient Health Record ---
Author Organization [facility] Address [address] [place] [address] Care Team Providers Care Licensing Coordinator Name Role Phone Alex PEÑA, Kyree Primary Care Provider Rj Claros Unavailable [phone] Allergies Allergen (clinical drug ingredient) Drug/Non Drug Allergy documented on EMR Reaction Allergy Type Onset Date Status Penicillin Unknown Drug Allergy Active Reason For Referral No Information Medications Medication SIG (Take, Route, Frequency, Duration) Notes Start Date End Date Status Simvastatin 20 MG Tablet TAKE 1 TABLET B Y MOUTH EVERY DAY Oral; Duration: 90 Active Social History Tobacco Use: Social History Observation Description Date Details (start date - stop date) Never Smoker NA - NA Social History Drugs/Alcohol: Social Info Question Answer Notes Alcohol Screen Did you have a drink containing alcohol in the past year? Yes How often did you have a drink containing alcohol in the past year? 4 or more times a week (4 points) How many drinks did you have on a typical day when you were drinking in the past year? 3 or 4 drinks (1 point) How often did you have 6 or more drinks on one occasion in the past year? Never (0 point) Points 5 Interpretation Positive Tobacco Use: Social Info Question Answer Notes Tobacco Use/Smoking Patient is a nonsmoker Additional Details Category Social Info Options Details Miscellaneous: Marital status: Occupation: retired/works pa rt time Section Notes: Occasional alcohol; nonsmoke r Problems Problem Type SNOMED Code ICD Code Onset Dates Problem Status W/U Status Risk Notes Problem Colon cancer screening (350671466) Colon cancer screening (Z12.11) Active confirmed Problem Pre-procedure evaluation check (970912505) Encounter for other preprocedural examination (Z01.818) Active confirmed Encounters Encounter Location Date Provider Diagnosis [facility] [place] [address] [place], [place] [id number] 08/19/2024 Rj Robert Colon cancer screeni ng Z12.11 ; Diverticulosis of large intestine without perforation or abscess without bleeding K57.30 and Other hemorrhoids K64.8 [facility] [address] [place] [address] 05/03/2024 Rj Robert Assessments Encounter Date Diagnosis [...] Date [employer] (No Referra l) [address] [address] [place] [address] [id number] ZI SORENSON Self - patient is the insured Medical (General) History Medical History History ICD Code Denies [place],DM,CVA,Lung disease,renal dise ase Negative colonoscopy in 12/17 14 at [facility] other than a hyperplastic polyp that was removed Hyperlipidemia Surgical History Surgery Date(Month/Year) tonsillectomy
[2025-03-22 14:29] LABS: Prostate Specific Antigen < 0.10 ng/mL (<0.05-4.0)
== END 2025-03-22 13:27 | disposition home or self-care (01) ==
LOC: HO.LAB 13:26
PROVIDERS: PCP Internal Medicine; Visit Provider Urology
DX: C61 Malignant neoplasm of prostate (principal); Z19.1 Hormone sensitive malignancy status; Z12.5 Encounter for screening for malignant neoplasm of prostate
CPT/HCPCS: 36415; 84153; 84403